=== PATIENT | female | born 1995 | race Asian ===

== ENCOUNTER → 2023-01-16 10:56 | Outpatient (BNVA) | payer BC, SELFPAY | PROVIDERS: PCP Internal Medicine; Visit Provider Physician Assistant Surgical ==

== ENCOUNTER → 2023-01-24 08:00 | Outpatient (BNVA) | payer BC, SELFPAY | PROVIDERS: PCP Internal Medicine; Visit Provider Surgery ==

== ENCOUNTER 2023-01-30 07:35 | Outpatient (REF) | payer BC, SELFPAY ==
--- NOTE | ~2023-01-30 | XR_ITS ---
EXAMINATION: XR CHEST CLINICAL INFORMATION: Morbid obesity due to access calories. COMPARISON: None available. TECHNIQUE: 2 views of the chest were obtained. FINDINGS: The mediastinal silhouette is normal. There is mild elevation of the right hemidiaphragm. Right lung is slightly hyperexpanded compared to left. No focal consolidation, changes of congestion or pleural effusions are seen. No pneumothorax. Regional skeleton is intact. Visualized upper abdomen is unremarkable. XR/XR chest 2V IMPRESSION: No acute pulmonary process.
--- NOTE | 2023-01-30 07:45 | ECG_ITS ---
Test Reason : obesity Blood Pressure : / mmHG Vent. Rate : 090 BPM Atrial Rate : 090 BPM P-R Int : 154 ms QRS Dur : 084 ms QT Int : 380 ms P-R-T Axes : 034 031 024 degrees QTc Int : 464 ms Normal sinus rhythm Normal ECG No previous ECGs available Referred By: Gonzales Leo Electronically Signed By:CORRIE CASILLAS MD
[2023-01-30 07:52] LABS: MANUAL DIFF FLAG NO
[2023-01-30 08:20] LABS: Basophils Percent Auto 0.2 % (0-2); Eosinophils Absolute Auto 0.2 X10*3/uL (0.0-0.4); Eosinophils Percent Auto 2.7 % (0-4); Hematocrit 44.2 % (37.0-47.0); Hemoglobin 13.9 g/dl (12.0-16.0); Imm Gran Abs Auto 0.02 X10*3/uL (0.00-0.03); Imm Gran Pct Auto 0.2 % (0.0-0.4); Lymphocytes Absolute Auto 2.6 X10*3/uL (1.2-4.9); Lymphocytes Percent Auto 31.7 % (20-40); Mean Corpuscular HGB Conc 31.4 g/dl (31.0-35.0); Mean Corpuscular Hemoglobin 25.9 pg (27.0-33.0); Mean Corpuscular Volume 82.3 fL (80.0-98.0); Monocytes Absolute Auto 0.5 X10*3/uL (0.1-1.2); Monocytes Percent Auto 6.1 % (2-11); Neutrophils Absolute Auto 4.9 x10*3/uL (2.0-8.3); Neutrophils Percent Auto 59.1 % (45-73); Platelet Count 300 X10*3/uL (160-400); Red Blood Count 5.37 X10*6/uL (4.20-5.50); Red Cell Distribution Width 13.7 % (11.0-16.0); White Blood Count 8.3 X10*3/uL (4.8-10.8)
[2023-01-30 08:28] LABS: Estimated Average Glucose 192 mg/dL; Hemoglobin A1c % 8.3 %
[2023-01-30 09:08] LABS: Alanine Aminotransferase 95 U/L (0-31); Albumin Level 4.3 g/dL (3.5-5.0); Alkaline Phosphatase 85 U/L (39-117); Anion Gap 15 (12-20); Aspartate Amino Transferase 83 U/L (5-31); Bilirubin Total 0.5 mg/dL (0.0-1.0); Blood Urea Nitrogen 11 mg/dL (9-16); C Reactive Protein 5.54 mg/dL (< or = 0.50); Calcium 9.5 mg/dL (8.4-10.2); Carbon Dioxide 23 mmol/L (22-29); Chloride 103 mmol/L (96-108); Cholesterol 198 mg/dL; Estimated Glomerular Filt Rate > 60; Glucose Random 133 mg/dL (60-115); HDL Cholesterol 42 mg/dL; Iron 48 mcg/dL (30-160); LDL Cholesterol Calculated 134 mg/dl; Percent Iron Saturation 17 % (15-50); Potassium 4.2 mmol/L (3.3-5.1); Sodium 137 mmol/L (135-145); Total Iron Binding Capacity 285 mcg/dL (228-428); Total Protein 8.2 g/dL (6.5-8.0); Triglycerides 112 mg/dL; Unsaturated Iron Binding 237 ug/dL
[2023-01-30 10:03] LABS: Ferritin 258 ng/mL (10-122); Folate 14.7 ng/mL (> or = 4.0); Insulin 36 uU/mL (2-29); TSH reflex Free T4 3.06 uIU/mL (0.32-4.0); Vitamin B12 586 pg/mL (200-900); Vitamin D 25-OH Total 26.7 ng/mL (>30)
[2023-02-03 14:18] LABS: Calcium (PTHI) 9.6 mg/dL (8.6-10.2); PTHI 48 pg/mL (16-77)
[2023-02-04 15:33] LABS: Zinc 68 mcg/dL (60-130)
[2023-02-05 16:39] LABS: Vitamin A 29 mcg/dL (38-98)
[2023-02-06 12:33] LABS: Vitamin B1 10 nmol/L (8-30)
== END 2023-01-30 07:36 | disposition home or self-care (01) ==
LOC: HO.LAB 07:35
PROVIDERS: Visit Provider Surgery
DX: E03.9 Hypothyroidism, unspecified (principal); E66.01 Morbid (severe) obesity due to excess calories; K21.9 Gastro-esophageal reflux disease without esophagitis; K76.0 Fatty (change of) liver, not elsewhere classified
CPT/HCPCS: 36415; 71046; 80053; 80061; 82306; 82607; 82728; 82746; 83036; 83525; 83540; 83970; 84425; 84443; 84590; 84630; 85025; 86140; 93005

== ENCOUNTER 2023-01-31 07:46 | Outpatient (REF) | payer BC, SELFPAY ==
[2023-02-01 14:19] LABS: H Pylori Breath Test Negative (Negative)
== END 2023-01-31 07:47 | disposition home or self-care (01) ==
LOC: HO.LNP 07:46
PROVIDERS: Surgery; Visit Provider Physician Assistant Surgical
DX: E66.01 Morbid (severe) obesity due to excess calories (principal); K21.9 Gastro-esophageal reflux disease without esophagitis; E03.9 Hypothyroidism, unspecified
CPT/HCPCS: 83013

== ENCOUNTER 2023-02-14 08:08 | Outpatient (REF) | payer BC, SELFPAY ==
--- NOTE | ~2023-02-14 | US_ITS ---
EXAMINATION: US COMPLETE ABDOMEN WITH LIVER ELASTOGRAPHY CLINICAL INFORMATION: Morbid obesity due to excess calories. COMPARISON: None available. TECHNIQUE: Real-time imaging of the abdominal viscera. Noninvasive ultrasound liver fibrosis assessment is performed using Rosalia ElastPQ point quantification shear wave elastography (2D-SWE) with a C5-2 MHz transducer. Multiple elastography samples are obtained. FINDINGS: PANCREAS: Largely obscured from visualization due to overlying bowel gas. ABDOMINAL AORTA: The proximal, middle, and distal aortic segments are normal in caliber. INFERIOR VENA CAVA: Visualized portions are normal. LIVER: The liver is in upper limits of normal for size. Liver contour is normal. There is increased liver parenchymal echogenicity consistent with steatosis. Evaluation for focal hepatic lesion in the setting of underlying steatosis is limited; however, no obvious focal lesion is seen. No intrahepatic biliary ductal dilatation. The right lobe measures 18.3 cm in length. The left lobe measures 12.9 cm in length. Portal flow is towards the liver (hepatopetal). Shear wave liver elastography median stiffness is 1.52 m/s (reference: normal median stiffness is 1.3 m/s or less). IQR/median stiffness to assess sampling precision is 0.14 (reference: good quality data set is IQR/median stiffness of 0.15 or less). GALLBLADDER: Normal. The gallbladder is physiologically distended without evidence of stones, sludge, polyps, wall thickening or pericholecystic fluid. COMMON BILE DUCT: Visualized common bile duct is normal in caliber measuring 0.4 cm in diameter. RIGHT KIDNEY: Normal. No hydronephrosis. No renal calculi or focal parenchymal lesions. The kidney measures 13.1 cm in maximum dimension. LEFT KIDNEY: Normal. No hydronephrosis. A 1.1 x 0.8 x 1.2 cm echogenic focus with reverberating echoes is noted in the lower pole. There appears to be small anechoic cystic portion anterior to this echogenic focus measuring 1.2 cm. I believe the finding represents milk of calcium in a renal cyst rather than nonobstructing calculus. The kidney measures 11.0 cm in maximum dimension. SPLEEN: Normal. The spleen measures 12.3 cm in maximum dimension. FREE FLUID: None. US/US abdomen comp w elastography IMPRESSION: 1. Hepatic steatosis. 2. Liver elastography: In the absence of other known clinical signs, measurements rule out compensated advanced chronic liver disease. If there are known clinical signs, further testing may be needed for confirmation. 3.A 1.2 cm echogenic nonshadowing focus in the lower pole of the left kidney is felt to represent milk of calcium in a cyst rather than nonobstructing calculus. No additional renal calculi. No hydronephrosis. REFERENCE: Society of Radiologists in Ultrasound Liver Stiffness Thresholds (2020): LIVER STIFFNESS THRESHOLDS: *Liver Stiffness equal or less than 1.3 m/s: High probability of being normal. *Liver Stiffness less than 1.7 m/s: In the absence of other known clinical signs, rules out compensated advanced chronic liver disease. *Liver Stiffness 1.7-2.1 m/s: Suggestive of compensated advanced chronic liver disease but need further test for confirmation. *Liver Stiffness over 2.1 m/s: Rules in compensated advanced chronic liver disease. *Liver Stiffness over 2.4 m/s: Suggestive of clinically significant portal hypertension. QUALITY OF DATA SET: *IQR/Median value equal or less than 0.15 implies a quality data set. *IQR/Median value over 0.15 implies a poor quality data set. SIGNIFICANT CHANGE FROM PRIOR EXAM: Significant change if liver stiffness measurement is 10% or greater from prior exam. OTHER CONSIDERATIONS: The stage of liver fibrosis may be overestimated in the setting of acute hepatitis, liver inflammation, elevated liver function tests, hepatic vascular congestion, obstructive cholestasis, non-fasting state, and infiltrative diseases such as amyloidosis and lymphoma. In some patients with NAFLD, the liver stiffness thresholds for compensated advanced chronic liver disease may be lower. In causes other than viral hepatitis and NAFLD, liver stiffness thresholds are not well established.
== END 2023-02-14 08:09 | disposition home or self-care (01) ==
LOC: HO.US 08:08
PROVIDERS: Visit Provider Surgery
DX: E66.01 Morbid (severe) obesity due to excess calories (principal); E03.9 Hypothyroidism, unspecified; K21.9 Gastro-esophageal reflux disease without esophagitis
CPT/HCPCS: 76705; 76981

== ENCOUNTER → 2023-02-17 14:06 | Outpatient (BNVA) | payer BC, SELFPAY | PROVIDERS: Visit Provider Counselor Mental Health ==

== ENCOUNTER → 2023-02-26 16:18 | Outpatient (BNVA) | payer BC, SELFPAY | PROVIDERS: Visit Provider Dietitian, Registered | DX: E66.01 Morbid (severe) obesity due to excess calories (principal); Z68.41 Body mass index [BMI] 40.0-44.9, adult; E11.9 Type 2 diabetes mellitus without complications; Z71.3 Dietary counseling and surveillance | CPT/HCPCS: 97802 ==

== ENCOUNTER → 2023-02-28 11:51 | Outpatient (BNVA) | payer BC, SELFPAY | PROVIDERS: Visit Provider Surgery ==

== ENCOUNTER 2023-03-17 11:00 | Outpatient (AMB) | payer BC, SELFPAY ==
--- NOTE | 2023-03-17 13:27 | A.OFFWM_ITS ---
Intake Intake Visit Reasons: VIDEO f/u Allergies shellfish Allergy (Intermediate, Uncoded 02/26/23 15:39) Itching PFSH Medical History (Updated 02/17/23 @ 14:46 by Lydia Manjarrez) GERD (gastroesophageal reflux disease) Hypothyroidism Knee pain Morbid obesity Sleep apnea Steatosis, liver Surgical History (Updated 01/16/23 @ 11:21 by Bernadine Santos CMA) Hx of wisdom tooth extraction Family History (Updated 01/16/23 @ 11:21 by Bernadine Santos CMA) Mother Hypertension Father Hypertension Diabetes Brother Asthma Brother No problems noted. Social History (Updated 01/16/23 @ 11:20 by Bernadine Santos CMA) Alcohol intake: current Alcohol intake frequency: holidays/special occasions only Patient Tobacco Use Status: Never used Tobacco Behavioral Health Assessment Weight Management Therapy Therapy Notes Details Today she reports falling off her routine due to vacation and also increased stress while in the process of buying a home. Pt is looking to have weight loss surgery to help improve her health and quality of life. She reported seeing a therapist for two years and just closed her practice two months ago however did work and process with her the topic of weight loss surgery. Pt reported high stress, some depression, and binge eating symptoms in the past. She reported that she was referred to [facility] intensive outpatient program two years ago after going to [facility] weight management program seeking weight loss surgery. She spent 2-3months at the program online daily and then found a therapist who specialized in BED. Pt stated that she had binge eating symptoms due to stress in her life at that time but also had become a habit since childhood. She started noticing in college when she saw how others were eating. Pt stated that her parents worked all the time as a child and had to fend for herself. Pt has no history of inpatient psychiatric admissions, legal problems, addiction to drugs or alcohol, and no history of self harming behaviors or suicide atte mpts. Presenting Concerns Referral Source provider Reason for referral weight loss surgery evaluation Precipitating Event obesity Living Situation Current Living Situation Own At risk of losing current housing? No Satisfied with current living situation? Yes Comments Pt lives with her fiance. Offer accepted today on a new home. Food/Weight/Diet Expectations of change weight loss and maintenance History/Relationship with food Pt reported her rel. has improved over the past couple of years. She has sought after treatment for binge eating, she will still over eat but not as intense as it was prior to, she has more awareness. Pt stated that she is more likely to over eat or binge when she is at a constitution party or gathering and there is a variety of different foods and wants to try them all. She reported that she would eat more carb heavy, lots of rice, meat, sweets/desserts. History/Relationship with weight She is currently at her heaviest weight. History/Relationship with dieting WMP at [facility] (260lbs) 2 years ago however did not qualify due to binge eating and also high stress in her life at that time. Binge Eating Do you frequently eat large amounts of food in short periods of time, not feeling physically hungry? Yes Do you feel out of control when you eat a large amount of food in a short period of time? No Do you eat large amounts of food rapidly and typically alone? Yes Night Eating Do you wake up at least once during the night to eat? No If you wake up in the night, do you find that it is necessary to eat something in order to fall back asleep? No Do you have little or no appetite in the morning and feel very hungry in the evening, often overeating between dinner and when you go to bed? No Social History Family history and relationship Pt is first generation here, her family is from [place]. She is engaged to be and has no children. She was raised by her parents and two older brothers. Her family lives in [place]. Parental/Familial environmental planner obligations none Developmental history and status no issues known Social support fianc?, mom Faith/Spirituality Judaism Cultural/Ethnic information [place] Turk[place] Legal Involvement and History Current or historical involvement with the legal system? none Education Highest grade completed bachelors in psychology and masters in communication Preferred learning style Auditory, Verbal, Written, Learn by doing and Visual Currently enrolled in educational program? No Interested in further educational program? No Educational Interests/Skills Pt works for [employer] agency in [employer] Employment Employment Status [employer] Wants help to find employment? No Meaningful activities reading, going to the park Financial Situation Describe current financial situation Comfortable Financial assistance? None Service Service? No Mental Health and Addiction Treatment Current/Past substance abuse? No Current/Past addictive behavior concerns? No Medical and Physical Health Summary Physical exam in the last year? No Pain Screening Current pain? No Pain in the last few months? Yes Medications Is the patient compliant with medications? Yes Does the patient have Denise Guardian in place? Not applicable Does the patient use complimentary health approaches? No Trauma/Abuse History History of trauma? No Assessment & Plan Assessment & Plan (1) Mild binge-eating disorder, in full remission: Code(s): F50.81 - Binge eating disorder (2) Morbid obesity: Code(s): E66.01 - Morbid (severe) obesity due to excess calories Plan Pt is looking to have weight loss surgery. She discussed her past eating disorder and her work towards recovery from that. Patient is stable compared to when she has tried weight management program in the past. She has no serious mental health symptoms at this time. Pt is cleared for surgery when ready and communication throughout was strongly encouraged. Pt should be considered for food based plan if she wishes due to history. Telehealth Telehealth Location of provider rendering services: practice address Location of patient: address on file Patient Identification confirmed using: Name, : Yes Telehealth method: video Patient verbally consented to treatment: Yes Patient verbally consented to billing insurance company: Yes Patient informed of any privacy concerns related to visit: Yes Minutes spent on Phone/Video with Pt.: 30 Coding Level of Care Code Tele Psytx 30 mins (96001) Diagnoses Mild binge-eating disorder, in full remission F50.81 Morbid obesity E66.01 Time Spent (min) 30
== END 2023-03-17 13:27 | disposition home or self-care (01) ==
LOC: HO.HBST 11:30
PROVIDERS: Visit Provider Counselor Mental Health
DX: F50.81 Binge eating disorder (principal); E66.01 Morbid (severe) obesity due to excess calories
CPT/HCPCS: 90832

== ENCOUNTER → 2023-03-17 11:00 | Outpatient (BNVA) | payer BC, SELFPAY | PROVIDERS: Visit Provider Counselor Mental Health ==

== ENCOUNTER 2023-03-27 08:30 | Outpatient (AMB) | payer BC, SELFPAY ==
--- NOTE | 2023-03-27 08:31 | MHC.OFFVISWM ---
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 Weight today is:259 pounds with a BMI 41.8 weight loss to date:13 pounds or 4.7 % TBWL She states she is very happy to be below 260 pounds and has not been at that weight in years. She has been more motivated since her last appointment and has noticed results. She states she is having some pain in the inside of her right>left ankle with extended walking. She was encouraged to get an ankle sleeve and also to try different exercises such as recumbent bike, elliptical to see if that does not cause pain. Her bike at home is upright. Meal plan: one ORGAIN protein shake (ONE scoop in 8oz low fat unsweetened almond milk) at 8am-10am and another Orgain shake (TWO scoops in 8oz almond milk) at 11am-1pm, 1 Zone Perfect protein bar at 2pm-4pm, dinner at 5pm (10 forks of protein and 10 forks of salad/vegetables) , one more protein bar after dinner at 7pm-9pm. exercise plan: stationary bike at home, 2-3 x per week, 250 calories and gym membership. walking 1-2 miles, daily, 300-400 calories. [facility] Medical History GERD (gastroesophageal reflux disease) Hypothyroidism Knee pain Morbid obesity Sleep apnea Steatosis, liver Surgical History Hx of wisdom tooth extraction Family History Mother Hypertension Father Hypertension Diabetes Brother Asthma Brother No problems noted. Social History Alcohol intake: current Alcohol intake frequency: holidays/special occasions only Patient Tobacco Use Status: Never used Tobacco Review of Systems Const All systems reviewed & are unremarkable except as noted in HPI and below Assessment & Plan Assessment & Plan (1) Morbid obesity: Code(s): E66.01 - Morbid (severe) obesity due to excess calories Plan: making progress continue to text weekly change meal plan to : one ORGAIN protein shake (ONE scoop in 8oz low fat unsweetened almond milk) at 8am-10am and another Orgain shake (ONE scoop in 8oz almond milk) at 11am-1pm, 1 Zone Perfect protein bar at 2pm-4pm, dinner at 5pm (10 forks of protein and 10 forks of salad/vegetables) , one more protein bar after dinner at 7pm-9pm. Increase exercise on bike to 4-5 x per week and increase calories burned to 300+. Try to walk daily as she is doing but add an ankle support sock. May need referral to facility worker for inserts. Telehealth Telehealth Location of provider rendering services: practice address Location of patient: address on file Patient Identification confirmed using: Name, : Yes Telehealth method: video Patient verbally consented to treatment: Yes Patient verbally consented to billing insurance company: Yes Patient informed of any privacy concerns related to visit: Yes Minutes spent on Phone/Video with Pt.: 20 Coding Level of Care Code Tele Est Pt Level 3 (86588) Diagnoses Morbid obesity E66.01 Time Spent (min) 30
[2023-03-27 08:34] VITALS: BMI 41.8
== END 2023-03-27 09:15 | disposition home or self-care (01) ==
LOC: HO.HBS 09:09
PROVIDERS: Visit Provider Physician Assistant Surgical
DX: E66.01 Morbid (severe) obesity due to excess calories (principal); Z68.41 Body mass index [BMI] 40.0-44.9, adult
CPT/HCPCS: 99213

== ENCOUNTER → 2023-03-27 08:30 | Outpatient (BNVA) | payer SELFPAY | PROVIDERS: Visit Provider Physician Assistant Surgical ==

== ENCOUNTER 2023-04-02 13:30 | Outpatient (AMB) | payer BC, SELFPAY ==
--- NOTE | 2023-04-02 14:51 | A.OFFWM_ITS ---
Intake Intake Visit Reasons: VIDEO f/u Allergies shellfish Allergy (Intermediate, Uncoded 02/26/23 15:39) Itching PFSH Medical History GERD (gastroesophageal reflux disease) Hypothyroidism Knee pain Morbid obesity Sleep apnea Steatosis, liver Surgical History Hx of wisdom tooth extraction Family History Mother Hypertension Father Hypertension Diabetes Brother Asthma Brother No problems noted. Social History Alcohol intake: current Alcohol intake frequency: holidays/special occasions only Patient Tobacco Use Status: Never used Tobacco Behavioral Health Assessment Weight Management Therapy Therapy Notes Details Today she reports falling off her routine due to vacation and also increased stress while in the process of buying a home. Pt is looking to have weight loss surgery to help improve her health and quality of life. She reported seeing a therapist for two years and just closed her practice two months ago however did work and process with her the topic of weight loss surgery. Pt reported high stress, some depression, and binge eating symptoms in the past. She reported that she was referred to [facility] intensive outpatient program two years ago after going to [facility] weight management program seeking weight loss surgery. She spent 2-3months at the program online daily and then found a therapist who specialized in BED. Pt stated that she had binge eating symptoms due to stress in her life at that time but also had become a habit since childhood. She started noticing in college when she saw how others were eating. Pt stated that her parents worked all the time as a child and had to fend for herself. Pt has no history of inpatient psychiatric admissions, legal problems, addiction to drugs or alcohol, and no history of self harming behaviors or suicide attemp ts. Presenting Concerns Referral Source provider Reason for referral weight loss surgery evaluation Precipitating Event obesity Living Situation Current Living Situation Own At risk of losing current housing? No Satisfied with current living situation? Yes Comments Pt lives with her fiance. Offer accepted today on a new home. Food/Weight/Diet Expectations of change weight loss and maintenance History/Relationship with food Pt reported her rel. has improved over the past couple of years. She has sought after treatment for binge eating, she will still over eat but not as intense as it was prior to, she has more awareness. Pt stated that she is more likely to over eat or binge when she is at a constitution party or gathering and there is a variety of different foods and wants to try them all. She reported that she would eat more carb heavy, lots of rice, meat, sweets/desserts. History/Relationship with weight She is currently at her heaviest weight. History/Relationship with dieting WMP at [facility] (260lbs) 2 years ago however did not qualify due to binge eating and also high stress in her life at that time. Binge Eating0 Do you frequently eat large amounts of food in short periods of time, not feeling physically hungry? Yes Do you feel out of control when you eat a large amount of food in a short period of time? No Do you eat large amounts of food rapidly and typically alone? Yes Night Eating Do you wake up at least once during the night to eat? No If you wake up in the night, do you find that it is necessary to eat something in order to fall back asleep? No Do you have little or no appetite in the morning and feel very hungry in the evening, often overeating between dinner and when you go to bed? No Social History Family history and relationship Pt is first generation here, her family is from [place]. She is engaged to be and has no children. She was raised by her parents and two older brothers. Her family lives in [place]. Parental/Familial cow washer obligations none Developmental history and status no issues known Social support fianc?, mom Hinduism/Spirituality Mormon Cultural/Ethnic information [place]arag[place] Legal Involvement and History Current or historical involvement with the legal system? none Education Highest grade completed bachelors in psychology and masters in communication Preferred learning style Auditory, Verbal, Written, Learn by doing and Visual Currently enrolled in educational program? No Interested in further educational program? No Educational Interests/Skills Pt works for [employer] agency in [employer] Employment Employment Status [employer] Wants help to find employment? No Meaningful activities reading, going to the park Financial Situation Describe current financial situation Comfortable Financial assistance? None Service Service? No Mental Health and Addiction Treatment Current/Past substance abuse? No Current/Past addictive behavior concerns? No Medical and Physical Health Summary Physical exam in the last year? No Pain Screening Current pain? No Pain in the last few months? Yes Medications Is the patient compliant with medications? Yes Does the patient have Denise Guardian in place? Not applicable Does the patient use complimentary health approaches? No Trauma/Abuse History History of trauma? No Assessment & Plan Assessment & Plan (1) Mild binge-eating disorder, in full remission: Code(s): F50.81 - Binge eating disorder (2) Morbid obesity: Code(s): E66.01 - Morbid (severe) obesity due to excess calories Plan Pt is looking to have weight loss surgery. She discussed her past eating disorder and her work towards recovery from that. Patient is stable compared to when she has tried weight management program in the past. She has no serious mental health symptoms at this time. Pt is cleared for surgery when ready and communication throughout was strongly encouraged. Pt should be considered for food based plan if she wishes due to history. Telehealth Telehealth Location of provider rendering services: practice address Location of patient: address on file Patient Identification confirmed using: Name, : Yes Telehealth method: video Patient verbally consented to treatment: Yes Patient verbally consented to billing insurance company: Yes Patient informed of any privacy concerns related to visit: Yes Minutes spent on Phone/Video with Pt.: 20 Coding Level of Care Code Tele Psytx 30 mins (74010) Diagnoses Mild binge-eating disorder, in full remission F50.81 Morbid obesity E66.01 Time Spent (min) 20
== END 2023-04-02 14:51 | disposition home or self-care (01) ==
LOC: HO.HBST 14:04
PROVIDERS: Visit Provider Counselor Mental Health
DX: F50.81 Binge eating disorder (principal); E66.01 Morbid (severe) obesity due to excess calories; Z68.41 Body mass index [BMI] 40.0-44.9, adult
CPT/HCPCS: 90832

== ENCOUNTER → 2023-04-02 13:30 | Outpatient (BNVA) | payer BC, SELFPAY | PROVIDERS: Visit Provider Counselor Mental Health ==

== ENCOUNTER 2023-04-04 08:11 | Outpatient (REF) | payer BC, SELFPAY ==
--- NOTE | ~2023-04-04 | FL_ITS ---
PROCEDURE: XR FLUOROSCOPY UPPER GI WITH AIR CLINICAL INFORMATION: Morbid/severe obesity due to excess calories. Preop. COMPARISON: None available. TECHNIQUE: Routine upper GI air-contrast study was performed in upright and lying position. FINDINGS: Following oral administration of thick barium and effervescent granules there is normal propagation of bolus from the oral cavity through the pharynx, esophagus into stomach without any evidence of obstruction, narrowing or stricture. The course, caliber and peristalsis of the stomach, duodenal bulb and sweep is normal. The mucosal pattern of the stomach and the duodenum is normal. FLUOROSCOPY TIME: 1.1 minute DOSE AREA PRODUCT: 49.343 uGy-m2 (microgray-meter squared) FL/FL upper GI w air IMPRESSION: Unremarkable upper GI air-contrast examination.
== END 2023-04-04 08:12 | disposition home or self-care (01) ==
LOC: HO.XRAY 08:11
PROVIDERS: Visit Provider Surgery
DX: E66.01 Morbid (severe) obesity due to excess calories (principal); K21.9 Gastro-esophageal reflux disease without esophagitis; E03.9 Hypothyroidism, unspecified; K76.0 Fatty (change of) liver, not elsewhere classified
CPT/HCPCS: 74246

== ENCOUNTER → 2023-04-04 08:14 | Outpatient (BNV) | payer BC, SELFPAY | PROVIDERS: Visit Provider Radiology Diagnostic Radiology | DX: Z01.818 Encounter for other preprocedural examination (principal) | CPT/HCPCS: 74246 ==

== ENCOUNTER 2023-04-18 08:18 | Outpatient (AMB) | payer BC, SELFPAY ==
--- NOTE | 2023-04-18 12:03 | A.OFFVIS_ITS ---
Intake VS Expanded 04/18/23 12:17 Height 5 ft 6 in Weight 256 lb 1 oz BMI 41.3 Body Fat 115.2 Body Fat Percentage 45 Free Fat Mass 140.8 Visceral Mass 18 Water Mass 103.9 BMR 1,891 Intake Visit Reasons: TV Follow Up SWL Allergies shellfish Allergy (Intermediate, Uncoded 02/26/23 15:39) Itching HPI TV Follow Up SWL HPI Details Start time: 12pm, End time: 12.20pm ?I spent 15 minutes speaking with the patient on the phone plus an additional 5 minutes reviewing and updating records for a total of 20 minutes HPI Comments History of Present Illness0 Details Overall weight loss: 15.9lbs, or 5.85% TBWL Is doing 2 Orgain protein shakes (1 scoop each in 8oz almond milk), 2.5 Zone Perfect protein bars and one meal (10 forks of protein and 10 forks of salad or vegetables) Exercise: walking outside x5/week for 350-400 calories, or stationary bike for 300 calories PFSH Medical History GERD (gastroesophageal reflux disease) Hypothyroidism Knee pain Morbid obesity Sleep apnea Steatosis, liver Surgical History Hx of wisdom tooth extraction Family History Mother Hypertension Father Hypertension Diabetes Brother Asthma Brother No problems noted. Social History Alcohol intake: current Alcohol intake frequency: holidays/special occasions only Patient Tobacco Use Status: Never used Tobacco Assessment & Plan Assessment & Plan (1) Morbid obesity: Code(s): E66.01 - Morbid (severe) obesity due to excess calories Plan: 1. Continue same nutritional plan of 2 Orgain protein shakes (1 scoop each in 8oz almond milk), 2.5 Zone Perfect protein bars and one meal (10 forks of protein and 10 forks of salad or vegetables) 2. Exercise: continue walking outside x5/week for 350-400 calories, or stationary bike for 300 calories 3. Alternatively purchase a stationary bike, elliptical or treadmill at home that can track calories. Let me know if you do so I can give you an exercise plan. 4. Continue to send me weight measurements weekly on Tuesdays Telehealth Telehealth Location of provider rendering services: practice address Location of patient: address on file Patient Identification confirmed using: Name, : Yes Telehealth method: voice only Patient verbally consented to treatment: Yes Patient verbally consented to billing insurance company: Yes Patient informed of any privacy concerns related to visit: Yes Minutes spent on Phone/Video with Pt.: 20 Coding Level of Care Code Tele Est Pt Level 3 (65912) Diagnoses Morbid obesity E66.01 Time Spent (min) 20
[2023-04-18 12:17] VITALS: BMI 41.3
== END 2023-04-18 12:21 | disposition home or self-care (01) ==
LOC: HO.HBS 08:18
PROVIDERS: Visit Provider Surgery
DX: E66.01 Morbid (severe) obesity due to excess calories (principal); Z68.41 Body mass index [BMI] 40.0-44.9, adult
CPT/HCPCS: 99442

== ENCOUNTER → 2023-04-18 08:18 | Outpatient (BNVA) | payer BC, SELFPAY | PROVIDERS: Visit Provider Surgery ==

== ENCOUNTER 2023-05-07 07:57 | Outpatient (AMB) | payer BC, SELFPAY ==
--- NOTE | 2023-05-07 08:17 | A.OFFVIS_ITS ---
Intake VS Expanded 05/07/23 08:29 Height 5 ft 6 in Weight 252 lb 4 oz BMI 40.7 Body Fat 113.5 Body Fat Percentage 45 Free Fat Mass 138.8 Visceral Mass 18 Water Mass 102.9 BMR 1,878 Intake Visit Reasons: TV Pre Op LSG 05/20/23 Allergies shellfish Allergy (Intermediate, Uncoded 05/07/23 08:18) Itching Medication List - Last Reconciled 05/07/23 by Gonzales Leo MD cholecalciferol (vitamin D3) 125 mcg PO DAILY metformin 1,000 mg PO BID ondansetron 4 mg PO Q12H pantoprazole 40 mg PO DAILY polyethylene glycol 3350 (Miralax) 17 grams PO DAILY sucralfate 10 mL PO BID vitamin A palmitate 10,000 units orally one per day; HPI TV Pre Op LSG 05/20/23 HPI Details Start time: 8.11am, End time: 8.31am ?I spent 15 minutes speaking with the patient on the phone plus an additional 5 minutes reviewing and updating records for a total of 20 minutes HPI Comments History of Present Illness Details Overall weight loss: 19.6lbs, or 7.21% TBWL Is doing 2 Orgain (1 scoop in almond milk) protein shakes, 2.5 Zone Perfect protein bars and one meal (10 forks of protein and 10 forks of salad or veg etables) Exercise: is doing the stationary bike or the elliptical for 400 calories x 5/week PFSH Medical History GERD (gastroesophageal reflux disease) Hypothyroidism Knee pain Morbid obesity Sleep apnea Steatosis, liver Surgical History Hx of wisdom tooth extraction Family History Mother Hypertension Father Hypertension Diabetes Brother Asthma Brother No problems noted. Social History Alcohol intake: current Alcohol intake frequency: holidays/special occasions on ly Patient Tobacco Use Status: Never used Tobacco Assessment & Plan Assessment & Plan (1) Morbid obesity: Code(s): E66.01 - Morbid (severe) obesity due to excess calories Plan: 1. Plan for lap sleeve gastrectomy including upper GI endoscopy. All tests has been completed and reviewed and the patient is cleared for the surgery. ?If diaphragmatic or ventral hernias are present at time of surgery, these will be r epaired laparoscopically as well. Risks and complications were discussed in detail including possible conversion to an open procedure, anastomotic leak, bleeding requiring transfusion, small bowel obstruction, , DVT and pulmonary embolism, cardiac, or pulmonary complications, as oil heaterman complications such as anastomotic ulcer, insufficient weight loss and vitamin deficiencies. I emphasized the importance of close follow-up, adherence to instructions and good communication. So far she has proven to be an excellent communicator and very compliant with all our directions accomplishing a great weight loss. I believe that she is an excellent candidate and she is ready. 2. Preop prescriptions were provided and explained the purpose of each one. Need to be purchased preop. Start Pantoprazole now as you get it from the pharmacy, 1 pill per day. Sucralfate and Zofran are for after surgery as needed. 3. Bowel prep: please do 7 packets ?of Miralax mixing each one with a an 8oz glass of water, crystal light, gatorade zero, or propel ?on 05/18/23 and the same amount on 05/19/23. Continue the protein shakes during? the bowel prep. 4. Needs to purchase 1oz medicine cups . 5. Needs to purchase Children's liquid Tylenol for postop pain control. 6. Avoid aspirin, motrin, Advil, Aleve, Ibuprofen, Naproxyn. Tylenol is OK. 7. She needs to purchase the Celebrate 4:1 protein shakes from the hospital's gift [facility]. 8. Will do basic preop blood work-up any day between Friday05/12/23 and Friday05/16/23 fasting for 12 hours and is scheduled to see the Anesthesiologist prior to the day of surgery. 9. Importance of adherence to postop folllow-up and recommendations was underscored and she understands that. 10. Stop food and bars as of tomorrow 05/08/23 and continue with 3 Orgain protein shakes (ONE scoop EACH in 8oz almond milk) at 8am-10am, 11am-1pm and 2pm-4pm and TWO more Orgain protein shakes with TWO scoops EACH in 8oz of almond milk at 5pm-7pm and 8pm-10pm 11. No soups, broths or V8 12. The patient's?medical?history has been reviewed and they are considered low risk for post op DVT and therefore DVT prophylaxis is not considered necessary. Travel after surgery was reviewed. The patient has not disclosed any travel plans during the first 30 days after surgery and they have been advised that within the first 30 days after surgery any bus, plane, train or car travel over 2 hours in duration is contraindicated due to the possibility of developing blood clots from immobility. Any travel, needs to include periods of ambulation of 10 minutes in duration every 2 hours.? Patient was instructed to discuss any plans for travel during this period with their bariatric surgeon.? 13. Please take at the day of surgery the following medications: 14. Stop any control pills and don't use them for one month after surgery 15. Absolutely no smoking or vaping, or marijuana until the surgery and for at least the first 4 weeks. Only nicotine patches are allowed. 16. Send me weight measurements on and then on the day of surgery before you go to the hospital. 17. Avoid any steroids by mouth for any reason. Let me know if someone prescribes them to you Orders: Orders Type and Screen Today E03.9 - Hypothyroidism, unspecified, E66.01 - Morbid (severe) obesity due to excess calories, G47.30 - Sleep apnea, unspecified, K21.9 - Gastro-esophageal reflux disease without esophagitis, K76.0 - Fatty (change of) liver, not elsewhere classified Comprehensive Met. Panel Today E03.9 - Hypothyroidism, unspecified, E66.01 - Morbid (severe) obesity due to excess calories, G47.30 - Sleep apnea, unspecified, K21.9 - Gastro-esophageal reflux disease without esophagitis, K76.0 - Fatty (change of) liver, not elsewhere classified C Reactive Protein Today E03.9 - Hypothyroidism, unspecified, E66.01 - Morbid (severe) obesity due to excess calories, G47.30 - Sleep apnea, unspecified, K21.9 - Gastro-esophageal reflux disease without esophagitis, K76.0 - Fatty (change of) liver, not elsewhere classified Hemoglobin A1c Today E03.9 - Hypothyroidism, unspecified, E66.01 - Morbid (severe) obesity due to excess calories, G47.30 - Sleep apnea, unspecified, K21.9 - Gastro-esophageal reflux disease without esophagitis, K76.0 - Fatty (change of) liver, not elsewhere classified Insulin Today E03.9 - Hypothyroidism, unspecified, E66.01 - Morbid (severe) obesity due to excess calories, G47.30 - Sleep apnea, unspecified, K21.9 - Gastro-esophageal reflux disease without esophagitis, K76.0 - Fatty (change of) liver, not elsewhere classified Lipid Panel Today E03.9 - Hypothyroidism, unspecified, E66.01 - Morbid (severe) obesity due to excess calories, G47.30 - Sleep apnea, unspecified, K21.9 - Gastro-esophageal reflux disease without esophagitis, K76.0 - Fatty (change of) liver, not elsewhere classified TSH reflex Free T4 Today E03.9 - Hypothyroidism, unspecified, E66.01 - Morbid (severe) obesity due to excess calories, G47.30 - Sleep apnea, unspecified, K21.9 - Gastro-esophageal reflux disease without esophagitis, K76.0 - Fatty (change of) liver, not elsewhere classified Prothrombin Time INR Today E03.9 - Hypothyroidism, unspecified, E66.01 - Morbid (severe) obesity due to excess calories, G47.30 - Sleep apnea, unspecified, K21.9 - Gastro-esophageal reflux disease without esophagitis, K76.0 - Fatty (change of) liver, not elsewhere classified Partial Thromboplastin Time Today E03.9 - Hypothyroidism, unspecified, E66.01 - Morbid (severe) obesity due to excess calories, G47.30 - Sleep apnea, unspecified, K21.9 - Gastro-esophageal reflux disease without esophagitis, K76.0 - Fatty (change of) liver, not elsewhere classified Complete Blood Count Auto Diff Today E03.9 - Hypothyroidism, unspecified, E66.01 - Morbid (severe) obesity due to excess calories, G47.30 - Sleep apnea, unspecified, K21.9 - Gastro-esophageal reflux disease without esophagitis, K76.0 - Fatty (change of) liver, not elsewhere classified Medications: New pantoprazole 40 mg PO DAILY 30 tabs 2RF K21.9 - Gastro-esophageal reflux disease without esophagitis sucralfate 10 mL PO BID 400 mL 2RF K21.9 - Gastro-esophageal reflux disease without esophagitis ondansetron Only take one every 12 hours as needed if you have nausea 4 mg PO Q12H 20 tabs 0RF nausea and vomiting R11.0 - Nausea polyethylene glycol 3350 (Miralax) Mix each packet with 8oz of water, Crystal light, or Gatorade zero, or Propel and do 7 packets on 05/18/23 and another 7 packets on 05/19/23 17 grams PO DAILY 14 ea 0RF Z01.818 - Encounter for other preprocedural examination Telehealth Telehealth Location of provider rendering services: practice address Location of patient: address on file Patient Identification confirmed using: Name, : Yes Telehealth method: voice only Patient verbally consented to treatment: Yes Patient verbally consented to billing insurance company: Yes Patient informed of any privacy concerns related to visit: Yes Minutes spent on Phone/Video with Pt.: 20 Coding Level of Care Code Tele Est Pt Level 3 (95080) Diagnoses Morbid obesity E66.01 Time Spent (min) 20
[2023-05-07 08:29] VITALS: BMI 40.7
== END 2023-05-07 08:32 | disposition home or self-care (01) ==
LOC: HO.HBS 07:57
PROVIDERS: Visit Provider Surgery
DX: E66.01 Morbid (severe) obesity due to excess calories (principal); Z68.41 Body mass index [BMI] 40.0-44.9, adult
CPT/HCPCS: 99499

== ENCOUNTER → 2023-05-07 07:57 | Outpatient (BNVA) | payer BC, SELFPAY | PROVIDERS: Visit Provider Surgery ==

== ENCOUNTER 2023-05-07 14:12 | Outpatient (AMB) | payer BC, SELFPAY ==
--- NOTE | 2023-05-07 14:46 | A.OFFWM_ITS ---
Intake Intake Visit Reasons: VIDEO f/u Allergies shellfish Allergy (Intermediate, Uncoded 05/07/23 08:18) Itching PFSH Medical History GERD (gastroesophageal reflux disease) Hypothyroidism Knee pain Morbid obesity Sleep apnea Steatosis, liver Surgical History Hx of wisdom tooth extraction Family History Mother Hypertension Father Hypertension Diabetes Brother Asthma Brother No problems noted. Social History Alcohol intake: current Alcohol intake frequency: holidays/special occasions only Patient Tobacco Use Status: Never used Tobacco Behavioral Health Assessment Weight Management Therapy Therapy Notes Details Patient is scheduled for surgery, she is excited to have that per her report although nervous. She is now moved into her new home and also has a dog she adopted. She reflected that she has everything she once wanted in her life. Positive reinforcement was used, motivational and supportive listening. Pt is looking to have weight loss surgery to help improve her health and quality of life. She reported seeing a therapist for two years and just closed her practice two months ago however did work and process with her the topic of weight loss surgery. Pt reported high stress, some depression, and binge eating symptoms in the past. She reported that she was referred to [facility] intensive outpatient program two years ago after going to [facility] weight management program seeking weight loss surgery. She spent 2-3months at the program online daily and then found a therapist who specialized in BED. Pt stated that she had binge eating symptoms due to stress in her life at that time but also had become a habit since childhood. She started noticing in college when she saw how others were eating. Pt stated that her parents worked all the time as a child and had to fend for herself. Pt has no history of inpatient psychiatric admissions, legal problems, addiction to drugs or alcohol, and no history of self harming behaviors or suicide attempts. Presenting Concerns Referral Source provider Reason for referral weight loss surgery evaluation Precipitating Event obesity Living Situation Current Living Situation Own At risk of losing current housing? No Satisfied with current living situation? Yes Comments Pt lives with her fiance. Offer accepted today on a new home. Food/Weight/Diet Expectations of change weight loss and maintenance History/Relationship with food Pt reported her rel. has improved over the past couple of years. She has sought after treatment for binge eating, she will still over eat but not as intense as it was prior to, she has more awareness. Pt stated that she is more likely to over eat or binge when she is at a republican or gathering and there is a variety of different foods and wants to try them all. She reported that she would eat more carb heavy, lots of rice, meat, sweets/desserts. History/Relationship with weight She is currently at her heaviest weight. History/Relationship with dieting WMP at [facility] (260lbs) 2 years ago however did not qualify due to binge eating and also high stress in her life at that time. Binge Eating Do you frequently eat large amounts of food in short periods of time, not feeling physically hungry? Yes Do you feel out of control when you eat a large amount of food in a short period of time? No Do you eat large amounts of food rapidly and typically alone? Yes Night Eating Do you wake up at least once during the night to eat? No If you wake up in the night, do you find that it is necessary to eat something in order to fall back asleep? No Do you have little or no appetite in the morning and feel very hungry in the evening, often overeating between dinner and when you go to bed? No Social History Family history and relationship Pt is first generation here, her family is from [place]. She is engaged to be and has no children. She was raised by her parents and two older brothers. Her family lives in [place]. 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 none Education Highest grade completed bachelors in psychology and masters in communication Preferred learning style Auditory, Verbal, Written, Learn by doing and Visual Currently enrolled in educational program? No Interested in further educational program? 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 No Meaningful activities reading, going to the park Financial Situation Describe current financial situation Comfortable Financial assistance? None Service Service? No Mental Health and Addiction Treatment Current/Past substance abuse? No Current/Past addictive behavior concerns? No Medical and Physical Health Summary Physical exam in the last year? No Pain Screening Current pain? No Pain in the last few months? Yes Medications Is the patient compliant with medications? Yes Does the patient have Denise Guardian in place? Not applicable Does the patient use complimentary health approaches? No Trauma/Abuse History History of trauma? No Assessment & Plan Assessment & Plan (1) Mild binge-eating disorder, in full remission: Code(s): F50.81 - Binge eating disorder (2) Morbid obesity: Code(s): E66.01 - Morbid (severe) obesity due to excess calories Plan Pt is looking to have weight loss surgery. She discussed her past eating disorder and her work towards recovery from that. Patient is stable compared to when she has tried weight management program in the past. She has no serious mental health symptoms at this time. Pt is cleared for surgery when ready and communication throughout was strongly encouraged. . Telehealth Telehealth Location of provider rendering services: practice address Location of patient: address on file Patient Identification confirmed using: Name, : Yes Telehealth method: voice only Patient verbally consented to treatment: Yes Patient verbally consented to billing insurance company: Yes Patient informed of any privacy concerns related to visit: Yes Minutes spent on Phone/Video with Pt.: 30 Coding Level of Care Code Tele Psytx 30 mins (40703) Diagnoses Mild binge-eating disorder, in full remission F50.81 Morbid obesity E66.01 Time Spent (min) 30
== END 2023-05-07 14:46 | disposition home or self-care (01) ==
LOC: HO.HBST 14:12
PROVIDERS: Visit Provider Counselor Mental Health
DX: F50.81 Binge eating disorder (principal); E66.01 Morbid (severe) obesity due to excess calories; Z68.41 Body mass index [BMI] 40.0-44.9, adult
CPT/HCPCS: 90832

== ENCOUNTER 2023-05-14 11:52 | Outpatient (REF) | payer BC, SELFPAY ==
[2023-05-14 12:13] LABS: MANUAL DIFF FLAG NO
[2023-05-14 13:17] LABS: Basophils Percent Auto 0.5 % (0-2); Eosinophils Absolute Auto 0.2 X10*3/uL (0.0-0.4); Eosinophils Percent Auto 2.2 % (0-4); Hematocrit 43.1 % (37.0-47.0); Hemoglobin 13.9 g/dl (12.0-16.0); Imm Gran Abs Auto 0.02 X10*3/uL (0.00-0.03); Imm Gran Pct Auto 0.3 % (0.0-0.4); Lymphocytes Absolute Auto 2.2 X10*3/uL (1.2-4.9); Lymphocytes Percent Auto 29.2 % (20-40); Mean Corpuscular HGB Conc 32.3 g/dl (31.0-35.0); Mean Corpuscular Hemoglobin 26.5 pg (27.0-33.0); Mean Corpuscular Volume 82.1 fL (80.0-98.0); Monocytes Absolute Auto 0.4 X10*3/uL (0.1-1.2); Monocytes Percent Auto 5.7 % (2-11); Neutrophils Absolute Auto 4.6 x10*3/uL (2.0-8.3); Neutrophils Percent Auto 62.1 % (45-73); Platelet Count 346 X10*3/uL (160-400); Red Blood Count 5.25 X10*6/uL (4.20-5.50); Red Cell Distribution Width 14.3 % (11.0-16.0); White Blood Count 7.4 X10*3/uL (4.8-10.8)
[2023-05-14 13:22] LABS: INTERNATIONAL NORM RATIO 1.3 (0.9-1.1); Prothrombin Time 15.6 SEC (11.1-13.3)
[2023-05-14 13:25] LABS: Partial Thromboplastin Time 34.3 SEC (26.0-36.4)
[2023-05-14 13:40] LABS: Estimated Average Glucose 114 mg/dL; Hemoglobin A1c % 5.6 % (<6.0)
[2023-05-14 14:12] LABS: Alanine Aminotransferase 87 U/L (0-31); Albumin Level 4.5 g/dL (3.5-5.0); Alkaline Phosphatase 64 U/L (39-117); Anion Gap 15 (12-20); Aspartate Amino Transferase 65 U/L (5-31); Bilirubin Total 0.5 mg/dL (0.0-1.0); Blood Urea Nitrogen 10 mg/dL (9-16); C Reactive Protein 3.42 mg/dL (< or = 0.50); Carbon Dioxide 24 mmol/L (22-29); Chloride 104 mmol/L (96-108); Cholesterol 169 mg/dL (<200); Estimated Glomerular Filt Rate > 60; Glucose Random 68 mg/dL (60-115); HDL Cholesterol 36 mg/dL (>40); LDL Cholesterol Calculated 115 mg/dL (<100); Sodium 139 mmol/L (135-145); Total Protein 8.8 g/dL (6.5-8.0); Triglycerides 92 mg/dL (<150)
[2023-05-14 14:18] LABS: Insulin 13 uU/mL (2-29); TSH reflex Free T4 2.68 uIU/mL (0.32-4.0)
== END 2023-05-14 11:53 | disposition home or self-care (01) ==
LOC: HO.LAB 11:52
PROVIDERS: PCP Internal Medicine; Visit Provider Surgery
DX: E66.01 Morbid (severe) obesity due to excess calories (principal); K21.9 Gastro-esophageal reflux disease without esophagitis; K76.0 Fatty (change of) liver, not elsewhere classified; E03.9 Hypothyroidism, unspecified; G47.30 Sleep apnea, unspecified
CPT/HCPCS: 36415; 80053; 80061; 83036; 83525; 84443; 85025; 85610; 85730; 86140

== ENCOUNTER 2023-05-20 06:15 | Inpatient (IN) | payer BC, SELFPAY ==
[2023-05-13 12:51] VITALS: BMI 39.9
--- NOTE | 2023-05-17 14:05 | MHC.SHP ---
Pre-Procedural Eval Section A Date of Service: 05/17/23 The patient is an INPATIENT: Yes The History & Physical has been completed within 30 days and I have reviewed it.: Yes Section B Chief Complaint: Morbid (severe) obesity due to excess calories Relevant Family History (Specify if Yes): No Relevant Social History: None Present Medications: None Medical History: No relevant PMH History of Previous Operations: No relevant previous surgery Allergies: Allergies Allergy/AdvReac Type Severity Reaction Status Date / Time shellfish Allergy Intermediate Itching, Uncoded 05/13/23 12:51 hives, rash Review of Systems Sugical H&P ROS: Negative: Constitution, Cardiovascular, Respiratory, Neurological, Psychiatric, Hem-Onc, Allergic/Immunologic, Gastrointestinal, Genitourinary, Musculoskeletal, Integumentary, Endocrine and Eyes/Ears/Nose/Throat Exam Surgical H&P Exam: Normal: HEENT, Normal: Heart, Normal: Lungs, Normal: Extremities, Normal: Abdomen, Normal: Skin and Normal: Neurological Plan Diagnosis/Plan: Unchanged I have reviewed the history and physical and performed a pertinent physical examination on my patient. No changes have occurred unless specified. Time Spent With Patient Time: Total time managing care of this patient today ____ minutes.
--- NOTE | 2023-05-19 09:40 | HO.ANESPROP2 ---
Documented by User: Clara Poole NP 05/19/23 09:41 HPI - Anesthesia Eval Consult details Narrative: 28yo F for Gastrectomy Sleeve - EGD, possible diaphragmatic hernia, possible ventral hernia, possible open PMFSH Active Problems Active Problems: All Active Problems (Updated 05/13/23 @ 12:58 by Ronda Spears, BECKY) Mild binge-eating disorder, in full remission (Acute) Vitamin A deficiency (Acute) Non-insulin dependent type 2 diabetes mellitus (Acute) Vitamin D deficiency (Acute) Steatosis, liver (Acute) Knee pain (Acute) GERD (gastroesophageal reflux disease) (Acute) Sleep apnea (Acute) Hypothyroidism (Acute) Morbid obesity (Acute) Past Medical History Medical History (Updated 05/20/23 @ 07:41 by Gonzales Leo MD) Diabetes Steatosis, liver Knee pain GERD (gastroesophageal reflux disease) Sleep apnea Hypothyroidism Morbid obesity Family History Family History Mother Hypertension Father Hypertension Diabetes Brother Asthma Brother No problems noted. Surgical History Surgical History Hx of wisdom tooth extraction Social History Social History (Updated 05/13/23 @ 12:55 by Ronda Spears RN) Household Members: Significant Other Are you a primary post acute care registered nurse to a significant other at home: No Do you presently have visiting nurse or other home services: No Alcohol intake: current Alcohol intake frequency: holidays/special occasions only Patient Tobacco Use Status: Never used Tobacco Use of substances other than those prescribed or required for medical reasons: No Have you been hit, kicked, punched, or otherwise hurt by someone within the past year? If so, by whom?: No Are you DNR?: No Advance Directives: No Advance Directives Information Provided: Yes Advance Directives on File: No Recently lost weight without trying: No Nutrition Risks: No Nutritional Risk Patient : No FDLMP: 05/12/2023 : No Poor oral hygiene: No (wears Invisalign at night) Meds Allergies Allergy/AdvReac Type Severity Reaction Status Date / Time shellfish Allergy Intermediate Itching, Uncoded 05/13/23 12:51 hives, rash Exam Exam Date and Time: May 19, 2023 0940 Height,Weight and Vital Signs: Height 5 ft 6 in Weight 112.037 kg Pertinent Lab Results Pertinent Lab Results: Laboratory Tests 05/14/23 12:02 Blood Type O Positive Antibody Screen NEGATIVE Laboratory Tests 05/14/23 12:11 WBC 7.4 Hgb 13.9 Hct 43.1 Plt Count 346 Sodium 139 Potassium 4.0 Chloride 104 Carbon Dioxide 24 BUN 10 Creatinine 0.74 Narrative Narrative: EKG 01/2023 Vent. Rate : 090 BPM Atrial Rate : 090 BPM P-R Int : 154 ms QRS Dur : 084 ms QT Int : 380 ms P-R-T Axes : 034 031 024 degrees QTc Int : 464 ms Normal sinus rhythm Normal ECG No previous ECGs available Assessment and Plan Assessment Anesthesia Assessment: Chart Reviewed Documented by User: Ruben Aguirre MD 05/20/23 08:03 [facility] Past Medical History Medical History (Updated 05/20/23 @ 07:41 by Gonzales Leo MD) Diabetes Steatosis, liver Knee pain GERD (gastroesophageal reflux disease) Sleep apnea Hypothyroidism Morbid obesity Family History Family History Mother Hypertension Father Hypertension Diabetes Brother Asthma Brother No problems noted. Family history of problems with anesthesia: No Surgical History Surgical History Hx of wisdom tooth extraction History of Problems with Anesthesia: No Social History Social History (Updated 05/13/23 @ 12:55 by Ronda Spears RN) Household Members: Significant Other Are you a primary post acute care registered nurse to a significant other at home: No Do you presently have visiting nurse or other home services: No Alcohol intake: current Alcohol intake frequency: holidays/special occasions only Patient Tobacco Use Status: Never used Tobacco Use of substances other than those prescribed or required for medical reasons: No Have you been hit, kicked, punched, or otherwise hurt by someone within the past year? If so, by whom?: No Are you DNR?: No Advance Directives: No Advance Directives Information Provided: Yes Advance Directives on File: No Recently lost weight without trying: No Nutrition Risks: No Nutritional Risk Patient : No FDLMP: 05/12/2023 : No Poor oral hygiene: No (wears Invisalign at night) Meds Allergies Allergy/AdvReac Type Severity Reaction Status Date / Time shellfish Allergy Intermediate Itching, Uncoded 05/13/23 12:51 hives, rash Exam Airway Mallampati Class: IV TM Dist: >3cm Neck ROM: Full Assessment and Plan Assessment Anesthesia Assessment: Anesthesia Plan Discussed Final Anesthetic Review Family History of Problems with Anesthesia: No History of Problems with Anesthesia: No NPO: Yes ASA Class: III Final Preanesthetic Review: No Changes in Pt Med Stat, Meds/Allgs Chart Reviewed, Consent Obtained/Reviewed and Anes Risks/Benef Reviewed Patient Risk: Intermediate Procedure Risk: Intermediate Anesthetic Plan Anesthetic Plan: GA Disposition: Standard PACU
[2023-05-20] VITALS (11 sets, daily range): BP systolic 106–151; BP diastolic 60–90; PULSE 86–103; RESP 16–27; TEMP 36.3–37.1; O2SAT 94–100
[2023-05-20 06:28] LABS: UPreg QC Valid YES; Urine Pregnancy NEGATIVE (NEGATIVE)
[2023-05-20 06:48] LABS: Glucose, Whole Blood 84 mg/dL (60-115)
[2023-05-20] MEDS: Aprepitant 32 MG/4.4 ML VIAL IVPUSH (06:49)
[2023-05-20] MEDS: Lactated Ringers 1,000 ML 999 ML IV (06:50)
--- NOTE | 2023-05-20 07:35 | P.BOP_ITS ---
Brief Operative Note Date of Service: 05/20/23 Pre-op diagnosis: Severe obesity with comorbidities (see below) Post-op diagnosis: same Procedure: INITIAL PATIENT BMI ON PRESENTATION AT OUR OFFICE: 43.9 kg/m2 LAST BMI BEFORE SURGERY: 38.9 kg/m2 COMORBIDITIES: non-insulin dependent diabetes, hypothyroidism, GERD, knee pain, sleep apnea, liver steatosis, liver fibrosis ?The patient presented to the Weight Management Program with significant obesity that was negatively impacting the patient's comorbidities as listed above.? The program is a phased program with a special focus on preoperative medical weight management to promote substantial weight loss and prepare the patients for the second phase of the program: bariatric surgery. The patient participated in an intensive weekly lifestyle ?intervention and exercise program during which the patient ?has lost between the initial office visit and the last preoperative visit 24.7lbs, or 9.08% of initial actual body weight. It was deemed appropriate for the patient to now have bariatric surgery. In light of the current Covid-19 pandemic and the well documented strong association of obesity and increased risk of worse outcomes if infected with Covid-19 (REFERENCES: https ://pubmed.ncbi.nlm.nih.gov/97904740/ ,? https://pubmed.ncbi.nlm.nih.gov/65689976/ ), any delay in undergoing bariatric surgery may lead to the patient's worsening health condition and increased?risk of more severe Covid-19 disease if infected. In addition a recent?study from [facility] published in [facility] on 08/27/2021 ([email or web address]) found that, among patients with obesity, substantial weight loss achieved with surgery was associated with improved outcomes of COVID-19 infection. The findings suggest that obesity can be a modifiable risk factor for the severity of COVID-19 infection. In addition, the patient met the BMI-criteria for bariatric surgery based on the BMI on initial presentation. The patient should not be penalized for achieving such weight loss because ?it is not sustainable long-term without surgical intervention and it was achieved in preparation for bariatric surgery ?under my direction and based on my published research ([email or web address]).[email or web address] and? https://www.soard.org/article/K2788-1130(31)85030-X/pdf ) ?that a 10% preoperative weight loss improves long-term weight loss after surgery and reduces perioperative complications.? Insurance carriers such as [facility] have endorsed my recommendations ?and have included in their policies criteria to include a 10% preoperative weight loss requirement. PROCEDURE: Esophago-gastroscopy,laparoscopic lysis of adhesions, laparoscopic sleeve gastrectomy and laparoscopic gastropexy INDICATIONS: This is a 28 year-old female who was electively scheduled for laparoscopic, possibly open sleeve gastrectomy. The risks and complications of the procedure were discussed with the patient in advance, particularly the possibility of ; pulmonary embolism; staple line leak; bleeding; GERD; cardiac, pulmonary, or renal complications; as well as long-term problems such as insufficient weight loss, vitamin deficiency, strictures, or ulcers. The patient understood all the risks, and was in agreement to proceed with surgery. DESCRIPTION OF PROCEDURE: After informed consent was obtained from the patient, the patient was given preoperative antibiotics, and was transferred to the operating room. After successful induction of general anesthesia, pneumatic compression devices were placed on both lower extremities. An upper endoscopy was performed next. The oropharynx and esophagus appeared to be within normal limits. There was no diaphragmatic hernia present consistent with the findings of the preoperative upper GI. The stomach was entered. Then after all fluid and air were suctioned and the stomach was fully decompressed, the scope was withdrawn and secured in the mid esophagus. The patient was then prepped and draped in the usual sterile manner, and abdominal access was established at the right upper quadrant with the Suresh technique. A 12 mm blunt port was inserted, and the abdomen was insufflated with CO2 to a pressure of 15 mmHg. Under direct visualization, additional ports were placed, specifically two 5 mm Versi-step ports to the left upper quadrant, and a 5 mm Versi-Step port to the right upper quadrant. 1% lidocaine plain was used to infiltrate all port sites as well as all fascia defects. Following that, the patient was placed in a steep reverse Trendelenburg position. An additional 5 mm port was placed to the right flank for the Mediflex retractor that was used to retract the left lobe of the liver. The gastro-esophageal fat pad was opened with the ultrasonic device (Thunderbeat, Olympus) and the anterior esophagus and hiatus were exposed. The angle of His was opened with the ultrasonic device the fundus of the stomach from any diaphragmatic and splenic attachments. I then opened the gastrocolic ligament between the transverse colon and the greater curvature of the stomach with the ultrasonic device to enter the lesser sac and facilitate the ligation of the short gastric vessels. I started at a mid-point along the greater curvature and using the Thunderbeat, all short gastric vessels were divided all the way to the angle of His until the left liset was completely dissected at its entirety. I then divided the gastro-colic ligament distally to a distance of about 3-4 cm proximal to the pylorus. There were extensive congenital adhesions between the pancreas and posterior gastric wall. Those were lysed completely with the ultrasonic device. Adhesiolysis took approximately 45 min to complete. The stomach was then divided transversely with two Endo FRANKIE-45 purple and four FRANKIE-60 articulating purple loads using the JumpPostIA stapler and loads. Every effort was made that the gastric sleeve had a tubular shape and an even caliber throughout. Once the sleeve resection was completed, the staple line of the gastric sleeve was reinforced with Hemoclips. The resected stomach was retrieved without difficulty from the Suresh port. A gastropexy was then performed in order to prevent postoperative GERD and partial gastric volvulus. Several interrupted 2.0 Surgidac sutures were placed b etween the sleeve's staple line and the previously divided greater omentum and gastro-colic ligament using the Endo-Stitch device. ?An upper endoscopy was performed. There was no narrowing at the GE junction. The scope was easily advanced all the way to the pylorus which was clearly visualized. There was no narrowing anywhere and the sleeve's caliber was even throughout. The sleeve's staple line was inspected and there was no evidence of ischemia, bleeding or dehiscence. At that point the gastroscope was withdrawn from the patient?s mouth while we were decompressing the bowel and the stomach from any remaining air. I looked into the lesser sac to see how the sleeve was situating and it was situating well. There was no bleeding from the staple line, spleen, or short gastric vessels. The Mediflex retractor was removed, and the undersurface of the liver was inspected and there was no bleeding. The patient was placed in supine position. I closed the fascial defect of the 12 mm port site with a figure of eight #1 Polysorb suture. Then 30cc Ropivacaine plain with 10 mg of Dexamethasone were used to infiltrate the fascial closure as well as all skin incisions. At this point, the abdomen was deflated, all ports were removed under direct vision, and no bleeding was noted from any of the port sites. The skin incisions were irrigated with saline and were closed with 4-0 absorbable monofilament sutures. Steri-Strips and OpSites were used to cover all incisions. The patient was extubated and was transferred in stable condition to the recovery room for further care. I was present and performed all tuttle parts of the procedure. Ms. Huang was the project administrative assistant. There were no residents to assist with this case. Tyler Leo MD, PhD, FACS Surgeon: Gonzales Leo MD Anesthesia: GETA, local and other (TAP block) Was an Materials Engineering Technician used for this Procedure?: No Materials Engineering Technician: Lynette Huang Estimated blood loss (mL): 10 IV fluids (mL): 1,600 Urine output (mL): 0 (No Arreguin to record output) Pathology: other (Stomach) Condition: stable Disposition: PACU
--- NOTE | 2023-05-20 07:40 | P.PNGS_ITS ---
Subjective Subjective Date of Service: 05/21/23 Interval history: Feels well. Mild incisional pain. She is tolerating phase 1 bariatric diet Physical Exam 2 Vital Signs: Vital Signs: Last Vital Signs Temp 97.3 F 05/20/23 06:48 Pulse 93 05/20/23 06:48 Resp 16 05/20/23 06:48 BP 106/60 05/20/23 06:48 Pulse Ox 98 05/20/23 06:48 O2 Del Method Room Air 05/20/23 06:48 BMI result Body Mass Index 39.9 GI: Inspection: Yes normal to inspection, Yes incision (clean, dry and intact) and Yes obesity Palpation (GI): Soft to palpation Extrem: Right lower extremity: normal to inspection (no calf tenderness) L eft lower extremity: normal to inspection (no calf tenderness) Objective Data Active Medications Lactated Ringer's (Lr) 1,000 mls @ 100 mls/hr IVCONT .Q10H KUNAL Lactated Ringer's (Lr) 1,000 mls @ 999 mls/hr IV .Q1H1M KUNAL Stop: 05/20/23 08:15 Last Admin: 05/20/23 06:50 Dose: 999 mls/hr Documented By: ALINE Labs 05/21/23 05:28 05/21/23 05:28 Labs: Laboratory Results - last 24 hr 05/20/23 05/20/23 06:13 06:36 POC Glucose 84 Urine Test NEGATIVE Procedures Date of Service Date of Service: 05/21/23 Progress Note: A&P Assessment and plan (1) Obesity: Status: Acute Assessment and Plan: s/p laparoscopic sleeve gastrectomy, lysis of adhesions and gastropexy Doing well Will check am labs and if OK the patient will be discharged home (2) BMI 38.0-38.9,adult: Status: Acute (3) Sleep apnea: Status: Acute (4) GERD (gastroesophageal reflux disease): Status: Acute (5) Knee pain: Status: Acute (6) Steatosis, liver: Status: Acute (7) Hypothyroidism: Status: Acute (8) Liver fibrosis: Status: Acute (9) Non-insulin dependent type 2 diabetes mellitus: Status: Acute (10) S/P laparoscopic sleeve gastrectomy: Status: Acute (11) Congenital intra-abdominal adhesions: Status: Acute Time Spent With Patient Time: Total time managing care of this patient today ____ minutes. Quality Stroke Does the patient have a stroke diagnosis?: No VTE Prior VTE?: No VTE Risk Level:: Surgical - moderate VTE Device Contraindication: N/A - Device Ordered VTE Drug Contraindication: Treatment Not Indicated
[2023-05-20] MEDS: ceFAZolin Sodium/Dextrose,Iso 2 GM/50 ML PIGGYBACK IV ×2 (07:45→12:34)
[2023-05-20] MEDS: Acetaminophen 1,000 MG/100 ML PIGGYBACK 400 MG IV (09:15)
--- NOTE | 2023-05-20 09:41 | PM.DS ---
DS: Providers Provider Date of Service: 05/21/23 Date of admission: 05/20/23 06:15 Primary care physician: Jennifer Denny MD DS: Diagnosis Discharge Diagnosis (1) Obesity: Status: Acute (2) BMI 38.0-38.9,adult: Status: Acute (3) Sleep apnea: Status: Acute (4) GERD (gastroesophageal reflux disease): Status: Acute (5) Knee pain: Status: Acute (6) Steatosis, liver: Status: Acute (7) Hypothyroidism: Status: Acute (8) Liver fibrosis: Status: Acute (9) Non-insulin dependent type 2 diabetes mellitus: Status: Acute DS: Summary Hospital Course Hospital Course: ADMITTING DIAGNOSIS: morbid obesity, DM, FAIZA, Hypothyroid, GERD DISCHARGE DIAGNOSIS: same, s/p laparoscopic sleeve gastrectomy PAST SURGICAL HISTORY: none PROCEDURE: upper endoscopy, laparoscopic sleeve gastrectomy DISCHARGE SUMMARY: History of Present Illness: The patient is a 28 year-old woman with a BMI of 43.9kg/m2 and associated co-morbidities as described above. The patient had extensive work-up, lost 20 lbs preoperatively and was electively scheduled for laparoscopic, possible open sleeve gastrectomy and gastropexy. Risks and complications of the surgery were discussed with the patient in advance, particularly the possibility of , pulmonary embolism, anastomotic leak, bleeding, bowel injury, GERD, cardiac, renal or pulmonary complications. The patient understood all the risks and was in agreement with the surgical plan. Hospital Course: The patient underwent an uneventful laparoscopic sleeve gastrectomy with gastropexy on the day of admission. Postoperatively, the patient was transferred to the surgical floor. The patient received IV Acetaminophen and IV dilaudid for pain control. Patient was started on bariatric phase 1 diet POD #0. On postoperative day one, the patient was feeling well without nausea, vomiting, fevers, or tachycardia. The patient had some mild incisional pain and the abdomen was soft. On the morning of postoperative day one, the patient was continued on 1 ounce of water or ice every half hour. During the day, the patient did fairly well, having some incisional pain, but able to ambulate adequately and to tolerate liquids well. Since the patient is doing well, we decided that the patient was ready to be discharged. The patient was given instructions to follow-up with me next week and to call my office for any fever over 101, persistent abdominal pain, nausea, vomiting, GERD, symptoms of DVT such as calf tenderness, or leg swelling, or pulmonary embolism such as chest pain or shortness of breath. The patient was also instructed to drink 40-60 ounces of liquids per day using the 1-ounce cups. The patient had been given prescriptions for Tylenol for pain, Zofran prn for nausea, and pantoprazole and carafate previously. The patient was encouraged to ambulate and use the incentive spirometer. The patient was allowed to shower, but no baths, and encouraged to stay active at home. All of these instructions were given to the patient personally. All questions were answered and the patient understood all instructions, the instructions were also given to the patient in print. Time Spent with Patient Time attestation: Total time managing care of this patient today ____ minutes. Discharge coordination time: Less than 30 minutes Quality: Safe Use of Opioids Does Pt have an Active Cancer Diagnosis on the Problem List?: No Quality: Stroke Does the patient have a stroke diagnosis?: No Physical Exam Vital Signs: Vital Signs: Last Vital Signs Temp 97.3 F 05/20/23 06:48 Pulse 93 05/20/23 06:48 Resp 16 05/20/23 06:48 BP 106/60 05/20/23 06:48 Pulse Ox 98 05/20/23 06:48 O2 Del Method Room Air 05/20/23 06:48 BMI result Body Mass Index 39.9 DS: Data Data Completed and Pending Pending studies at discharge: Pending at discharge 05/20/23 08:53 Surgical [PTH] Routine Labs on day of discharge: Laboratory Results - last 24 hr 05/20/23 05/20/23 06:13 06:36 POC Glucose 84 Urine Test NEGATIVE Discharge Plan Discharge Anticipated Discharge Date/Time: 05/21/23 10:38 Patient Disposition: Home, Self-Care Discharge Diagnosis: s/p sleeve gastrectomy Referrals: Jennifer Denny MD [Primary Care Provider] - 1 Week Discharge Medications: Continued pantoprazole 40 mg tablet,delayed release (DR/EC) 40 mg PO DAILY Qty: 30 2RF sucralfate 100 mg/mL suspension 10 ml PO BID Qty: 400 2RF ondansetron 4 mg tablet,disintegrating 4 mg PO Q12H Qty: 20 0RF Rx Instructions: Only take one every 12 hours as needed if you have nausea Held metformin 1,000 mg tablet 1,000 mg PO BID Qty: 60 2RF Hold Instructions: Discuss with Dr Daina Milton vitamin A palmitate 3,000 mcg (10,000 unit) capsule 10,000 unit PO .COMPLEX Qty: 30 2RF Rx Instructions: 10,000 units orally one per day; cholecalciferol (vitamin D3) 125 mcg (5,000 unit) capsule 125 mcg PO DAILY Qty: 90 0RF Discharge Orders: Discharge Order (Routine); Ordered 05/21/23 Ordered By: Gonzales Leo Activity on Discharge: No heavy lifting Stand Alone Forms: Patient Portal Discharge page Care Plan Goals: weight loss Health Concerns: obesity Plan of Treatment: No tub baths, sex or returning to work until discussed at first post op appointment. No exercise, alcohol, tobacco or illegal drug use. Continue to use incentive spirometer hourly while awake. Walk in home for 5- 10 minutes every 2 hours during the first week. Continue phase 1 diet today and start phase 2 diet tomorrow morning. Follow all instructions in the bariatric handbook and call with any questions. 1. Please call your doctor or come back to the emergency room should any new symptoms arise. 2. You will receive a courtesy call from [facility] 24-48 hours after discharge. 3. Activity: abstain from alcohol, practice limited stair climbing, no bending, no driving, no exercise, no illicit substances, no lifting, no sex, no tub bath, no work. 4. Diet: continue as discussed with bariatric team.. 5. Dressing Change/Wound Care: Do not change or remove surgical dressings unless they are wet or soiled. 6. Call your doctor if: - Your temperature exceeds 101.5 F - You experience excessive pain or swelling - You have an unexpected reaction to medication - You have excessive bleeding - You experience continued vomiting/nausea - Your incision begins to separate - Your incision shows signs of infection such as increased redness, swelling, excessive pain, heat, or drainage (light blood or clear fluid is normal) 7. General instructions: No lifting greater than 5 lbs for 1 week and not more than 20lbs the next 3?weeks. No driving until seen at the office in 5-7 days after surgery. If you do not move your bowels in the next 2 days, please tell?Dr. Leo. Please walk around your home every hour or two to prevent blood clots from forming in your legs. You do not need to wake from sleeping to walk. Please sleep in a bed or couch to prevent kinking at the hips and knees. Please take your incentive spirometer (your lung digital operations analyst) home with you and use it for the next few days to prevent pneumonia. You may shower, no hot tubs, baths or swimming pools.?Please follow the post op diet instructions you are?given by Dr Daina reyes? and text me daily at 5-6pm for an update.?If you have any issues or concerns or questions please communicate this to him via text.? The Celebrate shakes have all of the bariatric vitamins you need if you consume these shakes. If you are drinking other protein shakes, you will need to purchase the Celebrate multivitamins and calcium that are available in the hospital gift shop on the first floor of the main hospital.??Do not take anything without first discussing with Dr Leo. Please make sure you are consuming at least 40 ounces of fluids per day starting the?day AFTER your discharge from the hospital. Always drink 1-2 ml per minute using the 5ml?syringe. If you drink faster you may experience?bloating,?gas pain, burping, nausea or heartburn. In that case please slow down your pace and use the syringe to?understand better the?proper?pace and volume of drinking. Do not hesitate to contact the office with any questions at . The patient's medical history has been reviewed and they are considered low risk for post op DVT and therefore DVT prophylaxis is not considered necessary. Travel after surgery was reviewed. The patient has not disclosed any travel plans during the first 30 days after surgery and they have been advised that within the first 30 days after surgery any bus, plane, train or car travel over 2 hours in duration is contraindicated due to the possibility of developing blood clots from immobility. Any travel, needs to include periods of ambulation of 10 minutes in duration every 2 hours. The patient was instructed to discuss any plans for travel during this period with their bariatric surgeon. Assessment: stable, post op sleev gastrectomy Discharge Date/Time: 05/21/23 09:53
--- NOTE | 2023-05-20 09:59 | PHA.MEDREC ---
Pharmacy Consult ? Medication Reconciliation Pharmacy has completed the medication reconciliation. Reviewed med rec done by nursing
[2023-05-20] MEDS: ondansetron HCL 4 MG/2 ML VIAL IVPUSH (10:12)
[2023-05-20] MEDS: Famotidine/PF 20 MG/2 ML VIAL IVPUSH ×2 (11:02→21:24)
[2023-05-20] MEDS: Lactated Ringers 1,000 ML 100 ML IVCONT ×2 (11:04→21:24)
[2023-05-20 11:31] LABS: Glucose, Whole Blood 125 mg/dL (60-115)
[2023-05-20 13:45] LABS: Hematocrit 39.4 % (37.0-47.0); Hemoglobin 12.9 g/dl (12.0-16.0)
[2023-05-20 14:07] LABS: Anion Gap 13 (12-20); Blood Urea Nitrogen 7 mg/dL (9-16); Calcium 9.2 mg/dL (8.4-10.2); Carbon Dioxide 21 mmol/L (22-29); Chloride 104 mmol/L (96-108); Creatinine Clr Calc Pharmacy 148.2; Estimated Glomerular Filt Rate > 60; Glucose Random 143 mg/dL (60-115); Potassium 3.8 mmol/L (3.3-5.1); Sodium 134 mmol/L (135-145)
[2023-05-20 15:11] LABS: Glucose, Whole Blood 123 mg/dL (60-115)
[2023-05-20 21:16] LABS: Glucose, Whole Blood 110 mg/dL (60-115)
[2023-05-21 03:03] VITALS: BP 112/61; PULSE 90; RESP 18; TEMP 36.1; O2SAT 94
[2023-05-21 03:56] LABS: Glucose, Whole Blood 113 mg/dL (60-115)
[2023-05-21 06:03] LABS: MANUAL DIFF FLAG NO
[2023-05-21 06:06] LABS: Basophils Percent Auto 0.1 % (0-2); Hematocrit 39.7 % (37.0-47.0); Hemoglobin 13.1 g/dl (12.0-16.0); Imm Gran Abs Auto 0.02 X10*3/uL (0.00-0.03); Imm Gran Pct Auto 0.3 % (0.0-0.4); Lymphocytes Absolute Auto 1.3 X10*3/uL (1.2-4.9); Lymphocytes Percent Auto 17.6 % (20-40); Mean Corpuscular Volume 81.7 fL (80.0-98.0); Mean Platelet Volume 10.2 fL (9.4-12.3); Monocytes Absolute Auto 0.4 X10*3/uL (0.1-1.2); Monocytes Percent Auto 5.7 % (2-11); Neutrophils Absolute Auto 5.5 x10*3/uL (2.0-8.3); Neutrophils Percent Auto 76.3 % (45-73); Platelet Count 320 X10*3/uL (160-400); Red Blood Count 4.86 X10*6/uL (4.20-5.50); Red Cell Distribution Width 14.3 % (11.0-16.0); White Blood Count 7.2 X10*3/uL (4.8-10.8)
[2023-05-21 06:21] LABS: Anion Gap 15 (12-20); Blood Urea Nitrogen 5 mg/dL (9-16); Calcium 9.7 mg/dL (8.4-10.2); Carbon Dioxide 22 mmol/L (22-29); Chloride 106 mmol/L (96-108); Creatinine Clr Calc Pharmacy 166.4; Estimated Glomerular Filt Rate > 60; Glucose Random 101 mg/dL (60-115); Sodium 139 mmol/L (135-145)
[2023-05-21 06:43] LABS: Glucose, Whole Blood 96 mg/dL (60-115)
[2023-05-21] MEDS: Famotidine/PF 20 MG/2 ML VIAL IVPUSH (07:04)
[2023-05-21 07:35] VITALS: BP 132/75; PULSE 85; RESP 20; TEMP 36.3; O2SAT 98
[2023-05-21 08:03] VITALS: O2SAT 95
--- NOTE | 2023-05-21 10:53 | HO.POSTANES ---
Post Anesthesia Evaluation Post Anesthesia Evaluation Date of Service: 05/21/23 Vital Signs: Vital Signs Temp Pulse Resp BP Pulse Ox O2 Del Method 05/21/23 08:03 95 Room Air 05/21/23 07:35 97.4 F 85 20 132/75 98 Room Air 05/21/23 03:03 97.0 F 90 18 112/61 94 Room Air Anesthesia: General Endotracheal-GETA Mental Status: Awake Pain Control: Satisfactory (mild incisional pain) Nausea/Vomiting: None Hydration: Adequate Anesthesia-Related Issues: No Anes. Related Issues
== END 2023-05-21 09:53 | disposition home or self-care (01) | DRG 403 ==
LOC: HO.SSSA 09:41 → HO.S3 10:29
PROVIDERS: Nurse Practitioner; Physician Assistant; Admitting Provider Surgery; PCP Internal Medicine; Visit Provider Surgery
PROC: 0DB64Z3 Excision of Stomach, Percutaneous Endoscopic Approach, Vertical (ICD-10-PCS; CPT 43845; principal; 2023-05-20 07:30)
DX: E66.01 Morbid (severe) obesity due to excess calories (principal); K74.00 Hepatic fibrosis, unspecified; K76.0 Fatty (change of) liver, not elsewhere classified; E03.9 Hypothyroidism, unspecified; K66.0 Peritoneal adhesions (postprocedural) (postinfection); G47.30 Sleep apnea, unspecified; K21.9 Gastro-esophageal reflux disease without esophagitis; Z68.41 Body mass index [BMI] 40.0-44.9, adult; Z79.84 Long term (current) use of oral hypoglycemic drugs; Z79.899 Other long term (current) drug therapy
CPT/HCPCS: 36415; 80048; 81025; 82947; 85014; 85018; 85025; 86850; 86900; 86901; 88304; 88305; 88307; 88342; A4649; C9088; C9145; J0131; J0690; J1100; J1170; J2250; J2405; J2550; J2795; J3010

== ENCOUNTER → 2023-05-20 06:15 | Outpatient (BNV) | payer BC, SELFPAY | PROVIDERS: Admitting Provider Surgery; PCP Internal Medicine; Visit Provider Surgery | DX: E66.9 Obesity, unspecified (principal); Z68.38 Body mass index [BMI] 38.0-38.9, adult; K66.0 Peritoneal adhesions (postprocedural) (postinfection) | CPT/HCPCS: 43659; 43775 ==

== ENCOUNTER 2023-05-27 12:49 | Outpatient (AMB) | payer BC, SELFPAY ==
--- NOTE | 2023-05-27 13:11 | MHC.OFFVISWM ---
Intake VS Expanded 05/27/23 13:32 Height 5 ft 6 in Weight 235 lb BMI 37.9 BP 135/77 Blood Pressure Location Rt brachial Blood Pressure Position Sitting Pulse 91 Pulse Source Pulse Oximeter Temp 97.6 F Pulse Oximetry 98 Oxygen Delivery Method Room Air Body Fat 103.8 Body Fat Percentage 44.2 Free Fat Mass 131.0 Muscle Mass 124.4 Visceral Mass 10.0 Water Mass 94.2 BMR 1,878 Intake Visit Reasons: (OV) 7 Days PO LSG 05/20/23 Allergies shellfish Allergy (Intermediate, Uncoded 05/13/23 12:51) Itching, hives, rash HPI HPI Comments History of Present Illness Details POD #7 s/p LSG on05/20/[address] Rashad BAKER weight of 272 lbs, TBWL is 37 lbs ort 13.6 % Be sure to text Dr Leo your weight from your home scale exactly 1 week after surgery so he can adjust your meal plan. Continue meal plan until f/u with Talha at 30 - 34 days post op May shower, no submersion in bath for another week Continue abdominal binder with activity and exercise for the next 2 weeks. Exercise prior to surgery was elliptical and bike, may resume walking now 30 minutes per day. No abdominal exercises for 6 weeks post operatively You will be emailed a link for the post op video for review Reminded of the pace of drinking, 2 mL per minute, 1 oz/15 min. [facility] Medical History (Updated 05/22/23 @ 00:03 by Rebecca More) Diabetes Steatosis, liver Knee pain GERD (gastroesophageal reflux disease) Sleep apnea Hypothyroidism Morbid obesity Surgical History (Updated 05/27/23 @ 13:31 by Bernadine Santos CMA) S/P laparoscopic sleeve gastrectomy Hx of wisdom tooth extraction Family History Mother Hypertension Father Hypertension Diabetes Brother Asthma Brother No problems noted. Social History Household Members: Family Housing: Apartment Are you a primary critical care educator to a significant other at home: No Do you presently have visiting nurse or other home services: No Alcohol intake: current Alcohol intake frequency: holidays/special occasions only Patient Tobacco Use Status: Never used Tobacco Physical Exam Vital Signs: Last Vital Signs Temp 97.6 F 05/27/23 13:32 Pulse 91 05/27/23 13:32 BP 135/77 05/27/23 13:32 Pulse Ox 98 05/27/23 13:32 Oxygen Delivery Method Room Air 05/27/23 13:32 BMI result Body Mass Index 37.9 Const General: cooperative, healthy appearing, comfortable and no acute distress GI Inspection: Yes incision (c/d/i with steri strips in place) Palpation (GI): Soft to palpation, nontender, no hernias and no masses Assessment & Plan Assessment & Plan (1) S/P laparoscopic sleeve gastrectomy: Code(s): Z98.84 - Bariatric surgery status Plan: 7 days post op no complications. Rylan study paperwork completed. Will text Dr Lama for meal and exericse advancment. Next appt Talha 30 -34 days post op Coding Level of Care Code Global (63070) Diagnoses S/P laparoscopic sleeve gastrectomy Z98.84
[2023-05-27 13:32] VITALS: BP 135/77; PULSE 91; TEMP 36.4; O2SAT 98; BMI 37.9
== END 2023-05-27 14:04 | disposition home or self-care (01) ==
PROVIDERS: Visit Provider Physician Assistant
DX: Z98.84 Bariatric surgery status (principal)
CPT/HCPCS: 99024

== ENCOUNTER → 2023-05-27 12:49 | Outpatient (BNVA) | payer BC, SELFPAY | PROVIDERS: Visit Provider Physician Assistant ==

== ENCOUNTER 2023-05-29 10:31 | Outpatient (AMB) | payer BC, SELFPAY ==
--- NOTE | 2023-06-02 14:00 | A.OFFWM_ITS ---
Intake Intake Visit Reasons: VIDEO BH F/U Allergies shellfish Allergy (Intermediate, Uncoded 05/13/23 12:51) Itching, hives, rash PFSH Medical History (Updated 05/22/23 @ 00:03 by Rebecca More) Diabetes Steatosis, liver Knee pain GERD (gastroesophageal reflux disease) Sleep apnea Hypothyroidism Morbid obesity Surgical History (Updated 05/27/23 @ 13:31 by Bernadine Santos CMA) S/P laparoscopic sleeve gastrectomy Hx of wisdom tooth extraction Family History Mother Hypertension Father Hypertension Diabetes Brother Asthma Brother No problems noted. Social History Household Members: Family Housing: Apartment Are you a primary director of career resources to a significant other at home: No Do you presently have visiting nurse or other home services: No Alcohol intake: current Alcohol intake frequency: holidays/special occasions only Patient Tobacco Use Status: Never used Tobacco Behavioral Health Assessment Weight Management Therapy Therapy Notes Details Patient reported doing very well post surgery. She reported no issues, very surprised by her recovery. Discussed navigating work event and family relationships. Pt is looking to have weight loss surgery to help improve her health and quality of life. She reported seeing a therapist for two years and just closed her practice two months ago however did work and process with her the topic of weight loss surgery. Pt reported high stress, some depression, and binge eating symptoms in the past. She reported that she was referred to [facility] intensive outpatient program two years ago after going to [facility] weight management program seeking weight loss surgery. She spent 2-3months at the program online daily and then found a therapist who specialized in BED. Pt stated that she had binge eating symptoms due to stress in her life at that time but also had become a habit since childhood. She started noticing in college when she saw how others were eating. Pt stated that her parents worked all the time as a child and had to fend for herself. Pt has no history of inpatient psychiatric admissions, legal problems, addiction to drugs or alcohol, and no history of self harming behaviors or suicide attempts. Presenting Concerns Referral Source provider Reason for referral weight loss surgery evaluation Precipitating Event obesity Living Situation Current Living Situation Own At risk of losing current housing? No Satisfied with current living situation? Yes Comments Pt lives with her fiance. Offer accepted today on a new home. Food/Weight/Diet Expectations of change weight loss and maintenance History/Relationship with food Pt reported her rel. has improved over the past couple of years. She has sought after treatment for binge eating, she will still over eat but not as intense as it was prior to, she has more awareness. Pt stated that she is more likely to over eat or binge when she is at a alliance party or gathering and there is a variety of different foods and wants to try them all. She reported that she would eat more carb heavy, lots of rice, meat, sweets/desserts. History/Relationship with weight She is currently at her heaviest weight. History/Relationship with dieting WMP at [facility] (260lbs) 2 years ago however did not qualify due to binge eating and also high stress in her life at that time. Binge Eating Do you frequently eat large amounts of food in short periods of time, not feeling physically hungry? Yes Do you feel out of control when you eat a large amount of food in a short period of time? No Do you eat large amounts of food rapidly and typically alone? Yes Night Eating Do you wake up at least once during the night to eat? No If you wake up in the night, do you find that it is necessary to eat something in order to fall back asleep? No Do you have little or no appetite in the morning and feel very hungry in the evening, often overeating between dinner and when you go to bed? No Social History Family history and relationship Pt is first generation here, her family is from [place]. She is engaged to be and has no children. She was raised by her parents and two older brothers. Her family lives in [place]. 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 none Education Highest grade completed bachelors in psychology and masters in communication Preferred learning style Auditory, Verbal, Written, Learn by doing and Visual Currently enrolled in educational program? No Interested in further educational program? 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 No Meaningful activities reading, going to the park Financial Situation Describe current financial situation Comfortable Financial assistance? None Service Service? No Mental Health and Addiction Treatment Current/Past substance abuse? No Current/Past addictive behavior concerns? No Medical and Physical Health Summary Physical exam in the last year? No Pain Screening Current pain? No Pain in the last few months? Yes Medications Is the patient compliant with medications? Yes Does the patient have Denise Guardian in place? Not applicable Does the patient use complimentary health approaches? No Trauma/Abuse History History of trauma? No Assessment & Plan Assessment & Plan (1) Mild binge-eating disorder, in full remission: Code(s): F50.81 - Binge eating disorder (2) Morbid obesity: Code(s): E66.01 - Morbid (severe) obesity due to excess calories Plan Pt is looking to have weight loss surgery. She discussed her past eating disorder and her work towards recovery from that. Patient is stable compared to when she has tried weight management program in the past. She has no serious mental health symptoms at this time. Pt is cleared for surgery when ready and communication throughout was strongly encouraged. . Telehealth Telehealth Location of provider rendering services: other Location of patient: address on file Patient Identification confirmed using: Name, : Yes Telehealth method: video Patient verbally consented to treatment: Yes Patient verbally consented to billing insurance company: Yes Patient informed of any privacy concerns related to visit: Yes Minutes spent on Phone/Video with Pt.: 40 Coding Level of Care Code Tele Psytx 45 mins (12851) Diagnoses Mild binge-eating disorder, in full remission F50.81 Morbid obesity E66.01 Time Spent (min) 40
== END 2023-06-02 14:00 | disposition home or self-care (01) ==
LOC: HO.HBST 10:31
PROVIDERS: Visit Provider Counselor Mental Health
DX: F50.81 Binge eating disorder (principal); E66.01 Morbid (severe) obesity due to excess calories; Z68.37 Body mass index [BMI] 37.0-37.9, adult
CPT/HCPCS: 90834

== ENCOUNTER → 2023-05-29 10:31 | Outpatient (BNVA) | payer BC, SELFPAY | PROVIDERS: Visit Provider Counselor Mental Health ==

== ENCOUNTER 2023-06-12 11:23 | Outpatient (AMB) | payer BC, SELFPAY ==
--- NOTE | 2023-06-12 11:32 | A.OFFWM_ITS ---
Intake Intake Visit Reasons: VIDEO PO LSG 05/20/23 Allergies shellfish Allergy (Intermediate, Uncoded 05/13/23 12:51) Itching, hives, rash PFSH Medical History (Updated 05/22/23 @ 00:03 by Rebecca More) Diabetes Steatosis, liver Knee pain GERD (gastroesophageal reflux disease) Sleep apnea Hypothyroidism Morbid obesity Surgical History (Updated 05/27/23 @ 13:31 by Bernadine Santos CMA) S/P laparoscopic sleeve gastrectomy Hx of wisdom tooth extraction Family History Mother Hypertension Father Hypertension Diabetes Brother Asthma Brother No problems noted. Social History Household Members: Family Housing: Apartment Are you a primary home health care physician to a significant other at home: No Do you presently have visiting nurse or other home services: No Alcohol intake: current Alcohol intake frequency: holidays/special occasions only Patient Tobacco Use Status: Never used Tobacco Behavioral Health Assessment Weight Management Therapy Therapy Notes Details Patient reported doing very well post surgery. 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 She is trying to build consistent workout routine and not weight herself constantly. Pt identified desire to weight lift however anxious about herself, her body and how to do it. Pt is looking to have weight loss surgery to help improve her health and quality of life. She reported seeing a therapist for two years and just closed her practice two months ago however did work and process with her the topic of weight loss surgery. Pt reported high stress, some depression, and binge eating symptoms in the past. She reported that she was referred to [facility] intensive outpatient program two years ago after going to [facility] weight management program seeking weight loss surgery. She spent 2-3months at the program online daily and then found a therapist who specialized in BED. Pt stated that she had binge eating symptoms due to stress in her life at that time but also had become a habit since childhood. She started noticing in college when she saw how others were eating. Pt stated that her parents worked all the time as a child and had to fend for herself. Pt has no history of inpatient psychiatric admissions, legal problems, addiction to drugs or alcohol, and no history of self harming behaviors or suicide at [facility]. Presenting Concerns Referral Source provider Reason for referral weight loss surgery evaluation Precipitating Event obesity Living Situation Current Living Situation Own At risk of losing current housing? No Satisfied with current living situation? Yes Comments Pt lives with her fiance. Offer accepted today on a new home. Food/Weight/Diet Expectations of change weight loss and maintenance History/Relationship with food Pt reported her rel. has improved over the past couple of years. She has sought after treatment for binge eating, she will still over eat but not as intense as it was prior to, she has more awareness. Pt stated that she is more likely to over eat or binge when she is at a democrat or gathering and there is a variety of different foods and wants to try them all. She reported that she would eat more carb heavy, lots of rice, meat, sweets/desserts. History/Relationship with weight She is currently at her heaviest weight. History/Relationship with dieting WMP at [facility] (260lbs) 2 years ago however did not qualify due to binge eating and also high stress in her life at that time. Binge Eating Do you frequently eat large amounts of food in short periods of time, not feeling physically hungry? Yes Do you feel out of control when you eat a large amount of food in a short period of time? No Do you eat large amounts of food rapidly and typically alone? Yes Night Eating Do you wake up at least once during the night to eat? No If you wake up in the night, do you find that it is necessary to eat something in order to fall back asleep? No Do you have little or no appetite in the morning and feel very hungry in the evening, often overeating between dinner and when you go to bed? No Social History Family history and relationship Pt is first generation here, her family is from [place]. She is engaged to be and has no children. She was raised by her parents and two older brothers. Her family lives in [place]. Parental/Familial instructor looping obligations none Developmental history and status no issues known Social support fianc?, mom Taoism/Spirituality Christianity Cultural/Ethnic information Citizen Of [place] Legal Involvement and History Current or historical involvement with the legal system? none Education Highest grade completed bachelors in psychology and masters in communication Preferred learning style Auditory, Verbal, Written, Learn by doing and Visual Currently enrolled in educational program? No Interested in further educational program? 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 No Meaningful activities reading, going to the park Financial Situation Describe current financial situation Comfortable Financial assistance? None Service Service? No Mental Health and Addiction Treatment Current/Past substance abuse? No Current/Past addictive behavior concerns? No Medical and Physical Health Summary Physical exam in the last year? No Pain Screening0 Current pain? No Pain in the last few months? Yes Medications Is the patient compliant with medications? Yes Does the patient have Denise Guardian in place? Not applicable Does the patient use complimentary health approaches? No Trauma/Abuse History History of trauma? No Assessment & Plan Assessment & Plan (1) Mild binge-eating disorder, in full remission: Code(s): F50.81 - Binge eating disorder (2) Morbid obesity: Code(s): E66.01 - Morbid (severe) obesity due to excess calories Plan Pt is looking to have weight loss surgery. She discussed her past eating disorder and her work towards recovery from that. Patient is stable compared to when she has tried weight management program in the past. She has no serious mental health symptoms at this time. Pt is cleared for surgery when ready and communication throughout was strongly encouraged. . Telehealth Telehealth Location of provider rendering services: other Location of patient: address on file Patient Identification confirmed using: Name, : Yes Telehealth method: video Patient verbally consented to treatment: Yes Patient verbally consented to billing insurance company: Yes Patient informed of any privacy concerns related to visit: Yes Minutes spent on Phone/Video with Pt.: 35 Coding Level of Care Code Tele Psytx 30 mins (83737) Diagnoses Mild binge-eating disorder, in full remission F50.81 Morbid obesity E66.01 Time Spent (min) 35
== END 2023-06-12 11:30 | disposition home or self-care (01) ==
LOC: HO.HBST 11:23
PROVIDERS: Visit Provider Counselor Mental Health
DX: F50.81 Binge eating disorder (principal); E66.09 Other obesity due to excess calories; Z68.37 Body mass index [BMI] 37.0-37.9, adult
CPT/HCPCS: 90832

== ENCOUNTER → 2023-06-12 11:23 | Outpatient (BNVA) | payer BC, SELFPAY | PROVIDERS: Visit Provider Counselor Mental Health ==

== ENCOUNTER 2023-06-27 08:19 | Outpatient (AMB) | payer BC, SELFPAY ==
--- NOTE | 2023-06-27 08:22 | MHC.OFFVISWM ---
Intake VS Expanded 06/27/23 08:30 BP 129/69 Blood Pressure Location Rt brachial Blood Pressure Position Sitting Pulse 89 Pulse Source Pulse Oximeter Temp 97.2 F Temperature Source Temporal Artery Scan Pulse Oximetry 97 Oxygen Delivery Method Room Air Height 5 ft 6 in Weight 218 lb 3.2 oz BMI 35.2 Body Fat % 41.5 Body Fat Mass 90.4 Fat Free Mass 127.6 Visceral Fat Rating 8.0 Body Water % 42.1 Body Water Mass 91.8 Muscle Mass/Score 121.2 Basal Metabolic Rate/Score 1,813 Intake Visit Reasons: (OV) PO LSG 05/20/23 Allergies shellfish Allergy (Intermediate, Uncoded 05/13/23 12:51) Itching, hives, rash HPI HPI Comments History of Present Illness Details Pt is now 5 weeks s/p LSG by Dr Lama . 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 No nausea, emesis, reflux or abd pain. Has some pruritus around midline incicison Meal plan per Dr Lama, was hungry at night and plan changed a few days ago. 8am - 4:1 2 scoops UAM - over 2 hours 11 am - Zone perfect bar in 6 pieces 3 pm - same 4:1 shake 6pm- bar 10 pm- half bar - doesn't feel that she needs this bar Exercise - outside walking with dog every morning for 45 minutes, about 150 calories treadmill a home - speed 2.5 - 3.5, incline - unable to chnage incline, 300 calories - over 60 - 90 minutes. 7 days per week [facility] Medical History (Updated 06/26/23 @ 10:03 by Gonzales Leo MD) Diabetes Steatosis, liver Knee pain GERD (gastroesophageal reflux disease) Sleep apnea Hypothyroidism Morbid obesity Surgical History S/P laparoscopic sleeve gastrectomy Hx of wisdom tooth extraction Family History Mother Hypertension Father Hypertension Diabetes Brother Asthma Brother No problems noted. Social History Household Members: Family Housing: Apartment Are you a primary inpatient care manager rn to a significant other at home: No Do you presently have visiting nurse or other home services: No Alcohol intake: current Alcohol intake frequency: holidays/special occasions only Patient Tobacco Use Status: Never used Tobacco Physical Exam Vital Signs: Last Vital Signs Temp 97.2 F 06/27/23 08:30 Pulse 89 06/27/23 08:30 BP 129/69 06/27/23 08:30 Pulse Ox 97 06/27/23 08:30 Oxygen Delivery Method Room Air 06/27/23 08:30 BMI result Body Mass Index 35.2 Const General: cooperative, comfortable and no acute distress GI Inspection: Yes incision (completely healed) Palpation (GI): Soft to palpation, nontender, no guarding, no hernias and no masses Assessment & Plan Assessment & Plan (1) S/P laparoscopic sleeve gastrectomy: Code(s): Z98.84 - Bariatric surgery status Plan: Meal plan - now 2 4:1shakes and 2 bars each day. Exercise - wants to make more efficient. Treadmill- speed 3.0 - 3.5, 300 calories and alternate daily with ST TBP videos. Text me on Jun 30 with calories burned with TBP videos and how new plan is working for her, then weekly weights Next appt 4 weeks with me. Coding Level of Care Code Global (21631) Diagnoses S/P laparoscopic sleeve gastrectomy Z98.84
[2023-06-27 08:30] VITALS: BP 129/69; PULSE 89; TEMP 36.2; O2SAT 97; BMI 35.2
== END 2023-06-27 08:57 | disposition home or self-care (01) ==
PROVIDERS: Visit Provider Physician Assistant
DX: Z98.84 Bariatric surgery status (principal)
CPT/HCPCS: 99024

== ENCOUNTER → 2023-06-27 08:19 | Outpatient (BNVA) | payer BC, SELFPAY | PROVIDERS: Visit Provider Physician Assistant ==

== ENCOUNTER 2023-07-01 14:36 | Outpatient (AMB) | payer BC, SELFPAY ==
--- NOTE | 2023-07-01 14:35 | MHC.WMTHER ---
Intake Intake Visit Reasons: VIDEO F/U Allergies shellfish Allergy (Intermediate, Uncoded 05/13/23 12:51) Itching, hives, rash PFSH Medical History (Updated 06/26/23 @ 10:03 by Gonzales Leo MD) Diabetes Steatosis, liver Knee pain GERD (gastroesophageal reflux disease) Sleep apnea Hypothyroidism Morbid obesity Surgical History S/P laparoscopic sleeve gastrectomy Hx of wisdom tooth extraction Family History Mother Hypertension Father Hypertension Diabetes Brother Asthma Brother No problems noted. Social History Household Members: Family Housing: Apartment Are you a primary children's zoo caretaker to a significant other at home: No Do you presently have visiting nurse or other home services: No Alcohol intake: current Alcohol intake frequency: holidays/special occasions only Patient Tobacco Use Status: Never used Tobacco Behavioral Health Assessment Weight Management Therapy Therapy Notes Details Patient reported doing very well post surgery. Struggling some with cooking food for others, smell of food, not physically hungry but psychologically. She talked about anxious thoughts that often ruminate in her mind causing her distress and anxiety. 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 Pt is looking to have weight loss surgery to help improve her health and quality of life. She reported seeing a therapist for two years and just closed her practice two months ago however did work and process with her the topic of weight loss surgery. Pt reported high stress, some depression, and binge eating symptoms in the past. She reported that she was referred to [facility] intensive outpatient program two years ago after going to [facility] weight management program seeking weight loss surgery. She spent 2-3months at the program online daily and then found a therapist who specialized in BED. Pt stated that she had binge eating symptoms due to stress in her life at that time but also had become a habit since childhood. She started noticing in college when she saw how others were eating. Pt stated that her parents worked all the time as a child and had to fend for herself. Pt has no history of inpatient psychiatric admissions, legal problems, addiction to drugs or alcohol, and no history of self harming behaviors or suicide attempts. Presenting Concerns Referral Source provider Reason for referral weight loss surgery evaluation Precipitating Event obesity Living Situation Current Living Situation Own At risk of losing current housing? No Satisfied with current living situation? Yes Comments Pt lives with her fiance. Offer accepted today on a new home. Food/Weight/Diet Expectations of change weight loss and maintenance History/Relationship with food Pt reported her rel. has improved over the past couple of years. She has sought after treatment for binge eating, she will still over eat but not as intense as it was prior to, she has more awareness. Pt stated that she is more likely to over eat or binge when she is at a alliance party or gathering and there is a variety of different foods and wants to try them all. She reported that she would eat more carb heavy, lots of rice, meat, sweets/desserts. History/Relationship with weight She is currently at her heaviest weight. History/Relationship with dieting WMP at [facility] (260lbs) 2 years ago however did not qualify due to binge eating and also high stress in her life at that time. Binge Eating Do you frequently eat large amounts of food in short periods of time, not feeling physically hungry? Yes Do you feel out of control when you eat a large amount of food in a short period of time? No Do you eat large amounts of food rapidly and typically alone? Yes Night Eating Do you wake up at least once during the night to eat? No If you wake up in the night, do you find that it is necessary to eat something in order to fall back asleep? No Do you have little or no appetite in the morning and feel very hungry in the evening, often overeating between dinner and when you go to bed? No Social History Family history and relationship Pt is first generation here, her family is from [facility] [place]. She is engaged to be and has no children. She was raised by her parents and two older brothers. Her family lives in [place]. 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 none Education Highest grade completed bachelors in psychology and masters in communication Preferred learning style Auditory, Verbal, Written, Learn by doing and Visual Currently enrolled in educational program? No Interested in further educational program? 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 No Meaningful activities reading, going to the park Financial Situation Describe current financial situation Comfortable Financial assistance? None Service Service? No Mental Health and Addiction Treatment Current/Past substance abuse? No Current/Past addictive behavior concerns? No Medical and Physical Health Summary Physical exam in the last year? No Pain Screening Current pain? No Pain in the last few months? Yes Medications Is the patient compliant with medications? Yes Does the patient have Denise Guardian in place? Not applicable Does the patient use complimentary health approaches? No Trauma/Abuse History History of trauma? No Assessment & Plan Assessment & Plan (1) Mild binge-eating disorder, in full remission: Code(s): F50.81 - Binge eating disorder (2) Morbid obesity: Code(s): E66.01 - Morbid (severe) obesity due to excess calories Plan Pt is looking to have weight loss surgery. She discussed her past eating disorder and her work towards recovery from that. Patient is stable compared to when she has tried weight management program in the past. She has no serious mental health symptoms at this time. Pt is cleared for surgery when ready and communication throughout was strongly encouraged. . Telehealth Telehealth Location of provider rendering services: other Location of patient: address on file Patient Identification confirmed using: Name, : Yes Telehealth method: video Patient verbally consented to treatment: Yes Patient verbally consented to billing insurance company: Yes Patient informed of any privacy concerns related to visit: Yes Minutes spent on Phone/Video with Pt.: 35 Coding Level of Care Code Tele Psytx 30 mins (30131) Diagnoses Mild binge-eating disorder, in full remission F50.81 Morbid obesity E66.01 Time Spent (min) 35
== END 2023-07-01 14:37 | disposition home or self-care (01) ==
LOC: HO.HBST 14:36
PROVIDERS: Visit Provider Counselor Mental Health
DX: F50.81 Binge eating disorder (principal); E66.09 Other obesity due to excess calories; Z68.35 Body mass index [BMI] 35.0-35.9, adult
CPT/HCPCS: 90832

== ENCOUNTER → 2023-07-01 14:36 | Outpatient (BNVA) | payer BC, SELFPAY | PROVIDERS: Visit Provider Counselor Mental Health ==

== ENCOUNTER 2023-07-23 14:31 | Outpatient (AMB) | payer BC, SELFPAY ==
--- NOTE | 2023-07-23 14:00 | MHC.OFFVISWM ---
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 No n/v. abd pain or reflux. Does not want to use protein bars any more. TBWL is 63 lbs or 23%. Has follow up with Lydia 07/31, has been seeing her regularly. Meal plan - 8am - Celebrate 4:1 - 2 scoops UAM over 2 hours 11 am - Zone perfect over 3 hours 3pm- 4:1 shake - same way 6 pm- another bar Exercise - alternating treadmill and TBP workouts 6 d/week. -Treadmill- speed 3.0 - 4.5 - incline 0 on her machine 350 calories over 1 hour. TBP videos 30 minutes - following an exercise plan. [facility] Medical History (Updated 06/26/23 @ 10:03 by Gonzales Leo MD) Diabetes Steatosis, liver Knee pain GERD (gastroesophageal reflux disease) Sleep apnea Hypothyroidism Morbid obesity Surgical History S/P laparoscopic sleeve gastrectomy Hx of wisdom tooth extraction Family History Mother Hypertension Father Hypertension Diabetes Brother Asthma Brother No problems noted. Household Members: Family Housing: Apartment Are you a primary customer care representative to a significant other at home: No Do you presently have visiting nurse or other home services: No Alcohol intake: current Alcohol intake frequency: holidays/special occasions only Patient Tobacco Use Status: Never used Tobacco Assessment & Plan Assessment & Plan (1) Obesity: Code(s): E66.9 - Obesity, unspecified Plan: Doing very well post op. Treadmill - 10cal/minute, for 400 calories in 40 minutes - speed 3.0 - 4.5, change by 5 every 5 minutes. Alternate with TBP videos. Wants to decrease bars and start food now. Needs about 90- gram per day Will stop 4:1 shakes and change to either ORgain, Premier or Pure protein powder shakes and take Bariatric vitamins and Caclium/Vit D. 8am - shake 12pm - bar 3pm - shake 6pm - dinner, 1oz scrambled egg or moist soft, chicken or fish. Will text me her weight and how the new meal and exericse plans are working. Next appt with me in 4 weeks. (2) S/P laparoscopic sleeve gastrectomy: Code(s): Z98.84 - Bariatric surgery status Medications: New calcium citrate-vitamin D3 315 mg-5 mcg (200 unit) (Calcium Citrate + D) 1 tab PO BID 60 tabs 11RF Telehealth Telehealth Location of provider rendering services: practice address Location of patient: address on file Patient Identification confirmed using: Name, : Yes Telehealth method: video Patient verbally consented to treatment: Yes Patient verbally consented to billing insurance company: Yes Patient informed of any privacy concerns related to visit: Yes Coding Level of Care Code Global (24435) Diagnoses Obesity E66.9 S/P laparoscopic sleeve gastrectomy Z98.84
[2023-07-23 14:05] VITALS: BMI 33.7
== END 2023-07-23 14:32 | disposition home or self-care (01) ==
LOC: HO.HBS 14:31
PROVIDERS: Visit Provider Physician Assistant
DX: E66.9 Obesity, unspecified (principal); Z68.33 Body mass index [BMI] 33.0-33.9, adult; Z90.3 Acquired absence of stomach [part of]; Z98.84 Bariatric surgery status
CPT/HCPCS: 99024

== ENCOUNTER → 2023-07-23 14:31 | Outpatient (BNVA) | payer BC, SELFPAY | PROVIDERS: Visit Provider Physician Assistant ==

== ENCOUNTER 2023-08-20 15:15 | Outpatient (AMB) | payer BC, SELFPAY ==
--- NOTE | 2023-08-20 12:12 | A.OFFVIS_ITS ---
Intake VS Expanded 08/20/23 14:49 Height 5 ft 6 in Weight 201 lb 6 oz BMI 32.5 Intake Visit Reasons: VIDEO PO LSG 05/20/23 Allergies shellfish Allergy (Intermediate, Uncoded 05/13/23 12:51) Itching, hives, rash Medication List - Last Reconciled 08/20/23 by Lynette Huang PA-C calcium citrate-vitamin D3 315 mg-5 mcg (200 unit) (Calcium Citrate + D) 1 tab PO BID docusate sodium (Colace) 100 mg PO DAILY HPI HPI Comments History of Present Illness Details Pt is now 3 months s/p LSG. 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 No n/v, reflux or abd pain. Her boyfreind is out of work and now home in am, so she is trying to figure out a new routine for exercise, has not been doing much the last 2 weeeks. Also bloated from menses 1 week prior. Is asking about more food and restarting caffeine. 8am - shake Orgain UAM 12pm - bar Zone 3pm - shake Orgain 6pm - dinner, 1oz scrambled egg or mois t soft, chicken or fish. Treadmill - not consistent - averages 2d/ week. With treadmill 250 - 300, speed 3.5 - 4.5, incline - can't TBP videos 300 - 350 justin . COUNTS INCLUDE 234 BEDS AT THE [facility] Medical History (Updated 06/26/23 @ 10:03 by Gonzales Leo MD) Diabetes Steatosis, liver Knee pain GERD (gastroesophageal reflux disease) Sleep apnea Hypothyroidism Morbid obesity Surgical History S/P laparoscopic sleeve gastrectomy Hx of wisdom tooth extraction Family History Mother Hypertension Father Hypertension Diabetes Brother Asthma Brother No problems noted. 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 We discussed a new exercise routine of treadmill on weekends for >400 calories and then TBP 3 d during the week at her lunch time in order to be more consisitent of at least 5 d/ week. Meal plan shake bar shake mealof 2 oz lean protien and 1 oz cooked vegetable now and then in 2 weeks can have raw or cooked vegetables Will continue her appts with Lydia. 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 Next appt with me in 6 weeks, will continue to send me weekly weights. Pt is now 1 week s/p LSG and will stay on protein liquid diet for the next 2 weeks until her next appt. 10am - 12 pm --Celebrate 4:1 2 scoops with 8 oz 2 pm - 4 pm-- Celebrate 4:1 2 scoops with 8 oz 6 pm - pm Exercise - walk 30 minutes daily Next appt with me in 2 weeks. Patient is still obese and is not considered stable at this time. I spent 28 minutes in total speaking with the patient via video conference counseling , reviewing records and charting in patients chart. . Telehealth Telehealth Location of provider rendering services: practice address Location of patient: address on file Patient Identification confirmed using: Name, : Yes Telehealth method: video Patient verbally consented to treatment: Yes Patient verbally consented to billing insurance company: Yes Patient informed of any privacy concerns related to visit: Yes Coding Level of Care Code Tele Est Pt Level 4 (49574) Diagnoses S/P laparoscopic sleeve gastrectomy Z98.84
[2023-08-20 14:49] VITALS: BMI 32.5
== END 2023-08-20 15:20 | disposition home or self-care (01) ==
LOC: HO.HBS 15:15
PROVIDERS: PCP Nurse Practitioner Family; Visit Provider Physician Assistant
DX: E66.9 Obesity, unspecified (principal); Z68.32 Body mass index [BMI] 32.0-32.9, adult; Z90.3 Acquired absence of stomach [part of]; Z98.84 Bariatric surgery status
CPT/HCPCS: 99213

== ENCOUNTER → 2023-08-20 15:15 | Outpatient (BNVA) | payer BC, SELFPAY | PROVIDERS: PCP Nurse Practitioner Family; Visit Provider Physician Assistant ==

== ENCOUNTER 2023-09-03 20:18 | Outpatient (AMB) | payer BC, SELFPAY ==
--- NOTE | 2023-09-22 10:00 | MHC.WMTHER ---
Intake Intake Visit Reasons: Group Therapy Allergies shellfish Allergy (Intermediate, Uncoded 05/13/23 12:51) Itching, hives, rash PFSH Medical History (Updated 06/26/23 @ 10:03 by Gonzales Leo MD) Diabetes Steatosis, liver Knee pain GERD (gastroesophageal reflux disease) Sleep apnea Hypothyroidism Morbid obesity Surgical History S/P laparoscopic sleeve gastrectomy Hx of wisdom tooth extraction Family History Mother Hypertension Father Hypertension Diabetes Brother Asthma Brother No problems noted. 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 She shared appropriately and participated in goal and resolution making activity, Assessment & Plan Assessment & Plan (1) Mild binge-eating disorder, in full remission: Code(s): F50.81 - Binge eating disorder (2) Morbid obesity: Code(s): E66.01 - Morbid (severe) obesity due to excess calories Plan Pt is looking to have weight loss surgery. She discussed her past eating disorder and her work towards recovery from that. Patient is stable compared to when she has tried weight management program in the past. She has no serious mental health symptoms at this time. Pt is cleared for surgery when ready and communication throughout was strongly encouraged. . Coding Level of Care Code Grp Psych (93536) Diagnoses Mild binge-eating disorder, in full remission F50.81 Morbid obesity E66.01 Time Spent (min) 60
== END 2023-09-22 10:00 | disposition home or self-care (01) ==
LOC: HO.HBST 20:18
PROVIDERS: PCP Nurse Practitioner Family; Visit Provider Counselor Mental Health
DX: F50.81 Binge eating disorder (principal); E66.01 Morbid (severe) obesity due to excess calories

== ENCOUNTER → 2023-09-03 20:18 | Outpatient (BNVA) | payer BC, SELFPAY | PROVIDERS: PCP Nurse Practitioner Family; Visit Provider Counselor Mental Health | DX: F50.81 Binge eating disorder (principal); E66.01 Morbid (severe) obesity due to excess calories | CPT/HCPCS: 90853 ==

== ENCOUNTER 2023-09-29 14:30 | Outpatient (AMB) | payer BC, SELFPAY ==
--- NOTE | 2023-09-29 14:32 | MHC.OFFVISWM ---
Intake VS Expanded 09/29/23 14:41 Height 5 ft 6 in Weight 191 lb 4 oz BMI 30.9 Intake Visit Reasons: VIDEO PO LSG 05/20/23 Allergies shellfish Allergy (Intermediate, Uncoded 05/13/23 12:51) Itching, hives, rash Medication List - Last Reconciled 09/29/23 by Lynette Huang PA-C calcium citrate-vitamin D3 315 mg-5 mcg (200 unit) (Calcium Citrate + D) 1 tab PO BID docusate sodium (Colace) 100 mg PO DAILY jffldgsocfgu-xfa-qyck-FA-vit K 45 mg iron- 800 mcg-120 mcg (Bariatric Multivitamins) caps PO HPI HPI Comments History of Present Illness Details Pt is now 4+months s/p LSG. 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 Exercise 5d/week at gym and home - 1800 -2000 justin per week. Meal plan 8am shake - Premeir 12pm bar 3pm shake 6-7pm meal of 2 oz lean protien and 2 oz cooked or raw vegetable Will continue her appts with Lydia. 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 No chnges to Meal plan 10 am shake - Premeir 2 pm shake 6-7pm meal of 2 oz lean protein and 2 oz cooked or raw vegetable Exercise - needs to increase her intensity to burn at lest 10cal/minute for 2,000 justin/week. Post op labs ordered for 6 months with her next appt with me. Patient is still obese and is not considered stable at this time. I spent 26 minutes in total speaking with the patient via video conference counseling , reviewing records and charting in patients chart. . (2) Obesity: Code(s): E66.9 - Obesity, unspecified Plan see above Orders: Orders Insulin Today E66.9 - Obesity, unspecified, Z98.84 - Bariatric surgery status Hemoglobin A1c Today E66.9 - Obesity, unspecified, Z98.84 - Bariatric surgery status Complete Blood Count Auto Diff Today E66.9 - Obesity, unspecified, Z98.84 - Bariatric surgery status Lipid Panel Today E66.9 - Obesity, unspecified, Z98.84 - Bariatric surgery status IRON PROFILE Today E66.9 - Obesity, unspecified, Z98.84 - Bariatric surgery status Vitamin B12 and Folate Today E66.9 - Obesity, unspecified, Z98.84 - Bariatric surgery status Zinc Today E66.9 - Obesity, unspecified, Z98.84 - Bariatric surgery status Vitamin B1 Today E66.9 - Obesity, unspecified, Z98.84 - Bariatric surgery status Vitamin A Today E66.9 - Obesity, unspecified, Z98.84 - Bariatric surgery status TSH reflex Free T4 Today E66.9 - Obesity, unspecified, Z98.84 - Bariatric surgery status Comprehensive Met. Panel Today E66.9 - Obesity, unspecified, Z98.84 - Bariatric surgery status C Reactive Protein Today E66.9 - Obesity, unspecified, Z98.84 - Bariatric surgery status Ferritin Today E66.9 - Obesity, unspecified, Z98.84 - Bariatric surgery status Vitamin D 25-OH Total Today E66.9 - Obesity, unspecified, Z98.84 - Bariatric surgery status Telehealth Telehealth Location of provider rendering services: practice address Location of patient: address on file Patient Identification confirmed using: Name, : Yes Telehealth method: video Patient verbally consented to treatment: Yes Patient verbally consented to billing insurance company: Yes Patient informed of any privacy concerns related to visit: Yes Coding Level of Care Code Tele Est Pt Level 4 (61213) Diagnoses S/P laparoscopic sleeve gastrectomy Z98.84 Obesity E66.9
[2023-09-29 14:41] VITALS: BMI 30.9
== END 2023-09-29 14:56 | disposition home or self-care (01) ==
LOC: HO.HBS 14:35
PROVIDERS: PCP Nurse Practitioner Family; Visit Provider Physician Assistant
DX: E66.9 Obesity, unspecified (principal); Z98.84 Bariatric surgery status
CPT/HCPCS: 99213

== ENCOUNTER → 2023-09-29 14:30 | Outpatient (BNVA) | payer BC, SELFPAY | PROVIDERS: PCP Nurse Practitioner Family; Visit Provider Physician Assistant ==

== ENCOUNTER 2023-11-17 08:28 | Outpatient (REF) | payer BC, SELFPAY ==
[2023-11-17 08:47] LABS: MANUAL DIFF FLAG NO
[2023-11-17 09:13] LABS: Basophils Percent Auto 0.5 % (0-2); Eosinophils Absolute Auto 0.2 X10*3/uL (0.0-0.4); Hemoglobin 13.2 g/dl (12.0-16.0); Imm Gran Abs Auto 0.01 X10*3/uL (0.00-0.03); Imm Gran Pct Auto 0.2 % (0.0-0.4); Lymphocytes Absolute Auto 1.8 X10*3/uL (1.2-4.9); Mean Corpuscular Hemoglobin 28.3 pg (27.0-33.0); Mean Corpuscular Volume 85.7 fL (80.0-98.0); Monocytes Absolute Auto 0.4 X10*3/uL (0.1-1.2); Monocytes Percent Auto 6.3 % (2-11); Neutrophils Absolute Auto 3.2 x10*3/uL (2.0-8.3); Platelet Count 244 X10*3/uL (160-400); Red Blood Count 4.67 X10*6/uL (4.20-5.50); White Blood Count 5.6 X10*3/uL (4.8-10.8)
[2023-11-17 09:23] LABS: Estimated Average Glucose 100 mg/dL; Hemoglobin A1c % 5.1 % (<6.0)
[2023-11-17 10:10] LABS: Insulin 9 uU/mL (2-29)
[2023-11-17 10:18] LABS: Vitamin B12 1053 pg/mL (200-900)
[2023-11-17 12:14] LABS: Alanine Aminotransferase 15 U/L (0-31); Albumin Level 4.2 g/dL (3.5-5.0); Alkaline Phosphatase 71 U/L (39-117); Anion Gap 12 (12-20); Aspartate Amino Transferase 20 U/L (5-31); Bilirubin Total 0.4 mg/dL (0.0-1.0); Blood Urea Nitrogen 16 mg/dL (9-16); C Reactive Protein 1.31 mg/dL (< or = 0.50); Calcium 9.9 mg/dL (8.4-10.2); Carbon Dioxide 29 mmol/L (22-29); Chloride 103 mmol/L (96-108); Cholesterol 193 mg/dL (<200); Estimated Glomerular Filt Rate > 60; Glucose Random 76 mg/dL (60-115); HDL Cholesterol 44 mg/dL (>40); Iron 68 mcg/dL (30-160); LDL Cholesterol Calculated 137 mg/dL (<100); Percent Iron Saturation 27 % (15-50); Potassium 3.9 mmol/L (3.3-5.1); Sodium 140 mmol/L (135-145); Total Iron Binding Capacity 251 mcg/dL (228-428); Total Protein 8.3 g/dL (6.5-8.0); Triglycerides 63 mg/dL (<150); Unsaturated Iron Binding 183 ug/dL
[2023-11-17 12:17] LABS: Ferritin 274 ng/mL (10-122); TSH reflex Free T4 2.69 uIU/mL (0.32-4.0); Vitamin D 25-OH Total 53.3 ng/mL (>30)
[2023-11-20 00:18] LABS: Zinc 91 mcg/dL (60-130)
[2023-11-21 06:39] LABS: Vitamin A 33 mcg/dL (38-98)
[2023-11-21 13:43] LABS: Vitamin B1 15 nmol/L (8-30)
== END 2023-11-17 08:29 | disposition home or self-care (01) ==
LOC: HO.LAB 08:28
PROVIDERS: PCP Nurse Practitioner Family; Visit Provider Physician Assistant
DX: E66.9 Obesity, unspecified (principal); Z98.84 Bariatric surgery status
CPT/HCPCS: 36415; 80053; 80061; 82306; 82607; 82728; 82746; 83036; 83525; 83540; 84425; 84443; 84590; 84630; 85025; 86140

== ENCOUNTER 2023-11-24 11:00 | Outpatient (AMB) | payer BC, SELFPAY ==
--- NOTE | 2023-11-24 11:01 | A.OFFVIS_ITS ---
Intake VS Expanded 11/24/23 11:06 Height 5 ft 6 in Weight 181 lb 8 oz BMI 29.3 Intake Visit Reasons: VIDEO PO LSG 05/20/23 Allergies shellfish Allergy (Intermediate, Uncoded 05/13/23 12:51) Itching, hives, rash Medication List - Last Reconciled 11/24/23 by Lynette Huang PA-C calcium citrate-vitamin D3 315 mg-5 mcg (200 unit) (Calcium Citrate + D) 1 tab PO BID laqisdkiacpb-ttq-htvs-FA-vit K 45 mg iron- 800 mcg-120 mcg (Bariatric Multivitamins) caps PO vitamin A palmitate 3,000 mcg PO DAILY HPI HPI Comments History of Present Illness Details 28 yo woman now 6 months s/p LSG. 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 Started [employer] [place] school in September. Now wakes at 6 am - bed at 10:30 pm Meal plan - shake at 10 am and 2pm, then 6pm - 3 oz protein and 2 oz vegetable. Exercise - tries to burn 2k per week. 350 justin over 45 minutes. Post op complications: none FAIZA: resolved DM: resolved HTN: never Hyperlipidemia: resolved GERD: 0, Satisfaction with present condition - satisfied [facility] Medical History (Updated 06/26/23 @ 10:03 by Gonzales Leo MD) Diabetes Steatosis, liver Knee pain GERD (gastroesophageal reflux disease) Sleep apnea Hypothyroidism Morbid obesity Surgical History S/P laparoscopic sleeve gastrectomy Hx of wisdom tooth extraction Family History Mother Hypertension Father Hypertension Diabetes Brother Asthma Brother No problems noted. 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 9am - shake - change to 20 - 25 gram shake 12 pm - shake - 25 gram 3pm - 1 hb egg or reduced fat cheese stick , half protein bar 7pm - dinner 3 oz and 2 oz Exercise- change things up to burn 500 justin 4d/week - spin class on bike etc... 10 justin/minute Labs reviewed and explained. Next appt 3 months with PA, will call with any questions. Patient is not considered stable at this time. I spent minutes in total speaking with the patient via video conference counseling , reviewing records and charting in patients chart. . (2) Obesity: Code(s): E66.9 - Obesity, unspecified Plan: see above Medications: Refilled vitamin A palmitate 3,000 mcg PO DAILY 90 caps 3RF Telehealth Telehealth Location of provider rendering services: practice address Location of patient: address on file Patient Identification confirmed using: Name, : Yes Telehealth method: video Patient verbally consented to treatment: Yes Patient verbally consented to billing insurance company: Yes Patient informed of any privacy concerns related to visit: Yes Coding Level of Care Code Tele Est Pt Level 4 (64918) Diagnoses S/P laparoscopic sleeve gastrectomy Z98.84 Obesity E66.9
[2023-11-24 11:06] VITALS: BMI 29.3
== END 2023-11-24 11:37 | disposition home or self-care (01) ==
LOC: HO.HBS 11:22
PROVIDERS: PCP Nurse Practitioner Family; Visit Provider Physician Assistant
DX: E66.9 Obesity, unspecified (principal); Z68.29 Body mass index [BMI] 29.0-29.9, adult; Z90.3 Acquired absence of stomach [part of]; Z98.84 Bariatric surgery status
CPT/HCPCS: 99214

== ENCOUNTER → 2023-11-24 11:00 | Outpatient (BNVA) | payer BC, SELFPAY | PROVIDERS: PCP Nurse Practitioner Family; Visit Provider Physician Assistant ==

== ENCOUNTER 2024-02-06 08:58 | Outpatient (AMB) | payer BC, SELFPAY ==
[2024-02-06 09:05] VITALS: BP 124/76; PULSE 69; RESP 14; TEMP 36.6; O2SAT 99; BMI 28.6
--- NOTE | 2024-02-06 09:05 | A.OFFPC_ITS ---
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 Required: No Accompanied by: Self / Same As Patient Allergies mushrooms Allergy (Intermediate, Uncoded 02/06/24 09:17) Facial Swelling shellfish Allergy (Intermediate, Uncoded 02/06/24 09:17) Itching, hives, rash Medication List - Last Reconciled 02/06/24 by Gautam Kurtz CNP calcium citrate-vitamin D3 315 mg-5 mcg (200 unit) (Calcium Citrate + D) 1 tab PO BID dttskiojziga-mhf-wqgr-FA-vit K 45 mg iron- 800 mcg-120 mcg (Bariatric Multivitamins) caps PO vitamin A palmitate 3,000 mcg PO DAILY Tobacco use date assessed: 02/06/24 Dental Screening Dental Screen Date: 02/06/24 Did you have a dental visit in the last 12 months?: Yes Did you have a dental problem in the last 6 months where you did not have access to dental care?: No Was dental information given to patient?: Patient has dentist HPI HPI Comments History of Present Illness Details New patient Prior PCP:?[facility], Dr. Jennifer Denny Last office visit/CPE: About 2 years Acute issue(s): Trouble focusing and brain fog lately. 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 She endorses fatigue and poor night sleep with frequent awakenings. She states that these symptoms are limiting her work performance and therefore wants to be treated. She is is grad school [employer]. Her partner lost his job and she finds is challenging to take care of all the bills. She notes that she runs everyday in preparation for half a marathon race She moved from [place] to [place] in April, She had blood work done in October 2023; unremarkable findings except for elevated ferritin, 274 (equivocal) and LDL 137 She took metformin for 2 months and was instructed to stop taking the medication after she had laparoscopic sleeve gastrectomy. Last A1c in October 2023 was 5.1% She notes that she snores. She had sleep study done in 2019 and was diagnosed with sleep apnea. She slept with CPAP machine for 3 months but it was not helping so she stopped using it for sleep. She does not want a new sleep study and would not resume using CPAP PMHx: NIDDM2, GERD, hepatic steatosis, hypothyroidism, sleep apnea-no CPAP, morbid obesity, vitamin-D deficiency, vitamin-A deficiency SurgHx: s/p laparoscopic sleeve gastrectomy 9 months ago. Currently [place] [facility] [place] FHx: Mom: HTN, ROSIO. Dad: HTN, asthma SocHx: Does not smoke cigarettes. Drinks alcohol occasionally. No recreational drugs. She notes her last pap smear test was over 3 years ago: normal She notes that she is sexually active, in a monogamous relationship, and has no concerns for STD [facility] Medical History Diabetes Steatosis, liver Knee pain GERD (gastroesophageal reflux disease) Sleep apnea Hypothyroidism Morbid obesity Surgical History S/P laparoscopic sleeve gastrectomy Hx of wisdom tooth extraction Family History Mother Hypertension Substance abuse Father Hypertension Diabetes Brother Asthma Brother No problems noted. 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 1. Little interest or pleasure in doing things: not at all 2. Feeling down, depressed, or hopeless: not at all 3. Trouble falling or staying asleep, or sleeping too much: nearly every day 4. Feeling tired or having little energy: not at all 5. Poor appetite or overeating: not at all 6. Feeling bad about yourself - or that you are a failure or have let yourself or your family down: several days 7. Trouble concentrating on things, such as reading the newspaper or watching television: nearly every day 8. Moving or speaking so slowly that other people could have noticed. Or the opposite - being so fidgety or restless that you have been moving around a lot more than usual: several days 9. Thoughts that you would be better off or of hurting yourself in some way: not at all Total score: 8 Depression Screening Interpretation: Positive Depression Screening Follow-up: New Medication prescribed Depression Screening Done: Yes 59289 - PHQ-9 Billing: Yes Source: Developed by Drs. Martinez Mckenzie, Tia Choudhury, Gaudencio Sheehan and colleagues, with an educational ulysses from [employer]. Thrive Questionnaire Date Thrive assessed: 02/06/24 I am a: Patient What is your living situation today?: I have a steady place to live Within the past 12 months, did the food you bought not last and you didn't have the money to get more?: Never true Within the past 12 months, did you worry whether your food would run out before you got money to buy more?: Sometimes True Do you have trouble paying for medicines?: No Do you have trouble getting transportation to medical appointments?: No Do you have trouble paying your heating and electricity bill?: Yes Do you have trouble taking care of your child, family member or friend?: No Do you have trouble with day-to-day activities such as bathing, preparing meals, shopping, managing finances, etc.?: No Are you currently unemployed and looking for a job?: No Are you interested in more education?: No Please select the resources that you would like help with: Utilities Currently or been in a relationship where the following occur: no concerns reported THRIVE Score: 2 AUDIT C Alcohol Use Questionnaire (AUDIT-C) 1. How often do you have a drink containing alcohol?: Monthly or less 2. How many drinks containing alcohol do you have on a typical day when you are drinking?: 1 or 2 3. How often do you have six or more drinks on one occasion?: Never Total Score: 1 MAURI-7 AMB Questionnaire MAURI-7 Date MAURI - 7 assessed: 02/06/24 Feeling nervous, anxious, or on edge: 1 = Several days Not being able to stop or control worryin = Not at all Worrying too much about different things: 1 = Several days Trouble relaxin = Not at all Being so restless that it is hard to sit still: 1 = Several days Becoming easily annoyed or irritable: 0 = Not at all Feeling afraid as if something awful might happen: 0 = Not at all Total MAURI-7 score (0-4 normal; 5-9 mild; 10-14 moderate; 15-21 severe): 3 Source: Developed by Drs. Martinez Mckenzie, Tia Choudhury, Gaudencio Sheehan and colleagues, with an educational ulysses from [employer]. MAURI-7 Assessment Billing MAURI-7 Assessment Tool: MAURI-7 Assessment 05204 Review of Systems Const Details: Denies chills, Denies fatigue, Denies fever(s), Denies headache(s) and Denies weakness HEENT Denies change in vision, Denies dizziness, Denies headache(s), Denies hearing loss, Denies nasal congestion, Denies sinus pain, Denies sinus pressure and Denies sore throat Card Denies chest pain, Denies lightheadedness, Denies dyspnea and Denies other (palpitations) Resp Denies cough, Denies dyspnea and Denies wheezing GI Denies abdominal pain, Denies melena, Denies hematochezia, Denies change in bowel habits, Denies dyspepsia and Denies nausea Denies hematuria and Denies dysuria Musc Denies abnormal gait, Denies myalgias, Denies arthralgias, Denies numbness and Denies tingling Skin/Breast Denies rash, Denies unusual bruising and Denies wounds Neuro Denies abnormal gait, Denies dizziness, Denies headache(s), Denies memory loss, Denies numbness, Denies Sensory deficit (Neuro), Denies tingling and Denies weakness Psych Denies anxiety, Denies depression and Denies memory loss Endo Denies cold intolerance, Denies fatigue, Denies heat intolerance, Denies polydipsia and Denies polyuria Britton/Lymph Denies easy bleeding and Denies easy bruising Aller/Immun Denies wheezing Physical exam (Primary Care) Vital Signs: Last Vital Signs Temp 97.8 F 02/06/24 09:05 Pulse 69 02/06/24 09:05 Resp 14 02/06/24 09:05 BP 124/76 02/06/24 09:05 Pulse Ox 99 02/06/24 09:05 Oxygen Delivery Method Room Air 02/06/24 09:05 BMI result Body Mass Index 28.6 Tobacco/Smoking Status: Tobacco use Status Tobacco use date assessed 02/06/24 02/06/24 09:13 Patient Tobacco Use Status Never used Tobacco 02/06/24 09:13 e-Cigarette/Vaping Use Never Used 02/06/24 09:13 PHQ-9: PHQ-9 Score PHQ-9: Total score 8 02/06/24 09:16 Depression Screening Interpretation: Positive Depression Screening Follow-up: New Medication prescribed Thrive Assessment: Date of Thrive Assessment Date Thrive assessed 02/06/24 02/06/24 09:16 Currently or been in a relationship where the following occur: no concerns reported Const Other: General: no acute distress, well developed, alert and awake Nutritional Appearance: well nourished Orientation/consciousness: patient oriented x3 HENMT Head: Yes normocephalic and Yes atraumatic Ears: hearing grossly normal bilaterally and TM's normal bilaterally General nose exam: Normal external nose present and Normal nares present Mouth: Normal oral and palatal mucosa present and moist mucous membranes Teeth and gingiva: dentition normal Throat: Yes oropharynx normal Eyes Pupils: Equal, round and reactive pupils present and Pupil accommodation reflex normal EOM: EOMs intact bilaterally Neck Neck: Yes normal visual inspection, Yes no lymphadenopathy and Yes trachea midline Thyroid: Thyroid normal Carotids: no bruits Lymphatic: no lymphadenopathy noted Chest Chest palpation & inspection: normal inspection of the chest Resp Effort & Inspection: normal respiratory effort Auscultation: clear to auscultation bilaterally Cardio Rate: regular rate Rhythm: regular rhythm Heart sounds: S1 normal heart sound present, S2 normal heart sound present, no gallops, no murmurs and no rubs Bruits: no abdominal aortic bruits and no carotid bruits GI Palpation (GI): No Abdominal aortic bruit present, Soft to palpation, nontender, No hepatosplenomegaly present and No Rebound tenderness present Auscultation: normal bowel sounds General: Yes no CVA tenderness Back/Spine/Pelvis Back: no CVA tenderness Cervical Spine: cervical ROM normal and No Cervical spine tenderness Thoracic/Lumbar Spine: thoraco-lumbar ROM normal, No pain with thoraco-lumbar ROM, No thoracic spinal tenderness and No lumbar spinal tenderness Skin General: warm and dry. Normal skin color. Normal skin turgor Lesions: no lesions Rashes: no rashes Trauma: no lacerations or abrasions Wounds: no wounds Nails: normal Neuro General: patient oriented x3, gait normal and CN's II-XI intact bilaterally Cranial nerves: Yes Equal, round and reactive pupils present Cognition (Neuro): normal cognition Gait exam (Neuro): Normal gait present Motor exam (neuro): 5/5 motor strength present throughout Sensory Exam: No Sensory deficit (Neuro) Deep tendon reflexes (DTR's): Right patellar reflex intensity grade: 2+ and Left patellar reflex intensity grade: 2+ Extrem General: Yes normal to inspection, No edema and No calf tenderness Psych Appearance: grossly normal Affect: normal affect Attitude: cooperative Thought process: Normal thought process present Assessment and Plan Assessment & Plan (1) Normal physical examination, routine: Code(s): Z00.00 - Encounter for general adult medical examination without abnormal findings Plan: No significant physical restrictions or limitations noted Continue current treatment regimen Healthy diet and routine exercise encouraged Follow-up in 2 weeks for depression or sooner with worsening or new symptoms Verbalized understanding and agreed with treatment plan (2) Depression: Code(s): F32.A - Depression, unspecified Plan: Reports trouble focusing, brain fog, fatigue, and poor night sleep with frequent awakenings. These symptoms her limiting her work performance. 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 Her partner lost his job and she finds it challenging to take care of all the bills. PHQ-9 score reveals moderate depression. MAURI-7 score is normal Sertraline 50 mg daily ordered. Advised to take as prescribed. Instructed on the risks, benefits, and potential adverse reactions of the medications Follow-up in 2 weeks or sooner with worsening or new symptoms Verbalized understanding and agreed with treatment (3) Non-insulin dependent type 2 diabetes mellitus: Code(s): E11.9 - Type 2 diabetes mellitus without complications Plan: Took metformin for 2 months and was instructed to stop taking the medication after she had laparoscopic sleeve gastrectomy. Last A1c in October 2023 was 5.1% Healthy diet and routine exercise encouraged Will continue to monitor Verbalized understanding and agreed with the plan (4) Hypothyroidism: Code(s): E03.9 - Hypothyroidism, unspecified Plan: Not on medication Recent TSH is normal Will continue to monitor (5) Morbid obesity: Code(s): E66.01 - Morbid (severe) obesity due to excess calories Plan: She had laparoscopic sleeve gastrectomy 9 months ago She currently weighs 177 lb, BMI is 28.6 Healthy diet and routine exercise encouraged Continue to follow up with bariatic surgery as planed Verbalized understanding and agreed with the plan (6) Steatosis, liver: Code(s): K76.0 - Fatty (change of) liver, not elsewhere classified Plan: No acute symptoms Recent liver panel is normal Healthy diet and routine exercise encouraged Verbalized understanding and agreed with the plan (7) Vitamin D deficiency: Code(s): E55.9 - Vitamin D deficiency, unspecified Plan: Recent vitamin-D level is normal Continue to take calcium citrate + D as prescribed (8) Vitamin A deficiency: Code(s): E50.9 - Vitamin A deficiency, unspecified Plan: Recent vitamin-D level slightly low, 33 Take vitamin A palmitate and multivitamin as prescribed Verbalized understanding and agreed with the plan (9) GERD (gastroesophageal reflux disease): Code(s): K21.9 - Gastro-esophageal reflux disease without esophagitis Plan: No acute symptoms (10) Sleep apnea: Comment: no CPAP used Code(s): G47.30 - Sleep apnea, unspecified Plan: Reports sleep disturbances with frequent nighttime awakenings. She also snores. She used CPAP to sleep but stopped using it because it was not effective. 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 Orders: Orders UA CC w/rflx Micro + Cult Today Z00.00 - Encounter for general adult medical examination without abnormal findings Referrals [facility] Referral Z12.4 - Encounter for screening for malignant neoplasm of cervix Medications: New sertraline 50 mg PO DAILY 30 days 30 tabs 3RF Coding Level of Care Code New Pt Level 4 (54324) New Pt Prev Care 18-39yr(00608 Diagnoses Normal physical examination, routine Z00.00 Depression F32.A Non-insulin dependent type 2 diabetes mellitus E11.9 Hypothyroidism E03.9 Morbid obesity E66.01 Steatosis, liver K76.0 Vitamin D deficiency E55.9 Vitamin A deficiency E50.9 GERD (gastroesophageal reflux disease) K21.9 Sleep apnea G47.30 Pap smear for cervical cancer screening Z12.4 Additional Codes MAURI-7 Assessment Billing - MAURI-7 Assessment Tool: MAURI-7 Assessment 46447 ([id number])
== END 2024-02-06 09:56 | disposition home or self-care (01) ==
PROVIDERS: PCP Nurse Practitioner Family; Visit Provider Nurse Practitioner Family
DX: Z00.00 Encounter for general adult medical examination without abnormal findings (principal); F32.A Depression, unspecified; E11.9 Type 2 diabetes mellitus without complications; E66.01 Morbid (severe) obesity due to excess calories; Z68.28 Body mass index [BMI] 28.0-28.9, adult; E03.9 Hypothyroidism, unspecified; G47.30 Sleep apnea, unspecified; K76.0 Fatty (change of) liver, not elsewhere classified; E55.9 Vitamin D deficiency, unspecified; E50.9 Vitamin A deficiency, unspecified; K21.9 Gastro-esophageal reflux disease without esophagitis
CPT/HCPCS: 96127; 99203; 99385

== ENCOUNTER 2024-02-06 09:59 | Outpatient (REF) | payer BC, SELFPAY ==
[2024-02-06 11:22] LABS: Appearance Urine Clear; Color Urine Yellow; Glucose Urine UA Negative (Negative); Leukocyte Esterase Urine Small (1+) (Negative); Nitrite Urine Negative (Negative); PH 6.5 (5.0-9.0); Specific Gravity - Urine 1.025 (1.005-1.025); UMIC TRIGGER UACC YES; Urine Blood Negative (Negative); Urine Ketones Negative (Negative); Urine Protein Negative (Neg-Trace)
[2024-02-06 11:27] LABS: Bacteria Urine Trace (None Seen); Hyaline Casts Urine 0-2 /LPF (0-2); RBC Urine 0-2 /HPF (0-2); UACC Culture Trigger YES
== END 2024-02-06 10:00 | disposition home or self-care (01) ==
LOC: HO.WFDLDS 09:59
PROVIDERS: Visit Provider Nurse Practitioner Family
DX: R82.90 Unspecified abnormal findings in urine (principal)
CPT/HCPCS: 81001; 87086

== ENCOUNTER 2024-02-11 15:30 | Outpatient (AMB) | payer BC, SELFPAY ==
--- NOTE | 2024-02-11 15:33 | A.OFFVIS_ITS ---
VS Expanded 02/11/24 15:36 Height 5 ft 6 in Weight 176 lb BMI 28.4 Intake Visit Reasons: (TELEPHONE) PO LSG 11/02/20 Allergies mushrooms Allergy (Intermediate, Uncoded 02/06/24 09:17) Facial Swelling shellfish Allergy (Intermediate, Uncoded 02/06/24 09:17) Itching, hives, rash Medication List - Last Reconciled 02/11/24 by DOROTA Rao calcium citrate-vitamin D3 315 mg-5 mcg (200 unit) (Calcium Citrate + D) 1 tab PO BID chqoxxewipzs-ajh-scqr-FA-vit K 45 mg iron- 800 mcg-120 mcg (Bariatric Multivitamins) caps PO sertraline 50 mg PO DAILY 30 days vitamin A palmitate 3,000 mcg PO DAILY HPI Comments Details: This?is a?28?yo female who is s/p LSG 05/20/2023. Presents for 9 month post op visit. Weight at last visit on 11/24/2023 was 181.5 pounds with a BMI of 29.3, w eight today is 176 pounds, representing a 5.5 pound weight loss with a BMI today of 28.4.? No complaints of nausea, emesis, abdominal pain or reflux, or constipation. Present meal plan includes: 9am - Premier shake 12 pm - half shake 3pm - 1 hb egg or reduced fat cheese stick, half protein bar 7pm - dinner 3 oz and 2 oz Exercise- started running, 2-3 miles per day 5x week PFSH Medical History Diabetes Steatosis, liver Knee pain GERD (gastroesophageal reflux disease) Sleep apnea Hypothyroidism Morbid obesity Surgical History S/P laparoscopic sleeve gastrectomy Hx of wisdom tooth extraction Family History Mother Hypertension Substance abuse Father Hypertension Diabetes Brother Asthma Brother No problems noted. 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 [employer] Cognitive needs: No Hearing needs: No Vision needs: Yes Telehealth Telehealth Telehealth Platform: Telephone Location of provider rendering services: practice address Location of patient: address on file Patient Identification confirmed using: Name, : Yes Telehealth method: voice only Patient verbally consented to treatment: Yes Patient verbally consented to billing insurance company: Yes Patient informed of any privacy concerns related to visit: Yes Minutes spent on Phone/Video with Pt.: 15 Assessment & Plan Assessment & Plan (1) S/P laparoscopic sleeve gastrectomy: Code(s): Z98.84 - Bariatric surgery status Category: Surgical (2) Overweight: Code(s): E66.3 - Overweight Category: Medical Plan Pt aware that plan allowing for best results weight loss would incorporate shakes, bars, and one meal. She wants to try one shake in AM and two meals 6f/6f each now that she has increased her activity with running. She asks about gels needed for distance running and we discussed that her running currently would not require additional fuel at this point. But she will monitor energy levels, fatigue etc as she increases distance. RTC 3 months for annual, labs at that time. Texted pt my # and encouraged her to reach out between appts with any questions. Patient is overweight and is not considered stable at this time. I spent a total of 30 minutes reviewing/updating records, examining the patient and counseling the patient on weight management as detailed above.
[2024-02-11 15:36] VITALS: BMI 28.4
== END 2024-02-11 15:56 | disposition home or self-care (01) ==
LOC: HO.HBS 15:55
PROVIDERS: PCP Nurse Practitioner Family; Visit Provider Physician Assistant Surgical
DX: E66.3 Overweight (principal); Z68.28 Body mass index [BMI] 28.0-28.9, adult; Z90.3 Acquired absence of stomach [part of]; Z98.84 Bariatric surgery status
CPT/HCPCS: 99442

== ENCOUNTER → 2024-02-11 15:30 | Outpatient (BNVA) | payer BC, SELFPAY | PROVIDERS: PCP Nurse Practitioner Family; Visit Provider Physician Assistant Surgical ==

== ENCOUNTER 2024-02-23 08:58 | Outpatient (AMB) | payer BC, SELFPAY ==
[2024-02-23 09:02] VITALS: BP 104/66; PULSE 68; RESP 14; TEMP 36.5; O2SAT 99; BMI 29.2
--- NOTE | 2024-02-23 09:02 | MHC.PC.OV ---
Vital Signs 02/23/24 09:02 Height 5 ft 6 in Weight 181 lb 2 oz BMI 29.2 BP 104/66 Blood Pressure Location Rt brachial Position Sitting Respiration 14 Pulse 68 Pulse Source Pulse Oximeter Temp 97.7 F Temp Source Temporal Artery Scan Pulse Oximetry (%) 99 Oxygen Delivery Method Room Air Intake Visit Reasons: 2 wks depression Office Administration Instructor Required: No Accompanied by: Self / Same As Patient Allergies mushrooms Allergy (Intermediate, Uncoded 02/23/24 09:12) Facial Swelling shellfish Allergy (Intermediate, Uncoded 02/23/24 09:12) Itching, hives, rash Medication List - Last Reconciled 02/23/24 by Gautam Kurtz CNP calcium citrate-vitamin D3 315 mg-5 mcg (200 unit) (Calcium Citrate + D) 1 tab PO BID [id number] K 45 mg iron- 800 mcg-120 mcg (Bariatric Multivitamins) caps PO sertraline 50 mg PO DAILY 30 days vitamin A palmitate 3,000 mcg PO DAILY Tobacco use date assessed: 02/06/24 Dental Screening Dental Screen Date: 02/06/24 HPI HPI Comments History of Present Illness Details 28-year-old female presents for depression follow-up She admits to taking sertraline as prescribed without adverse reactions She reports improved depression symptoms. She notes that she has been sleeping throughout the night. Her energy has increased and appetite has improved She denies SI or HI PFSH Medical History Diabetes Steatosis, liver Knee pain GERD (gastroesophageal reflux disease) Sleep apnea Hypothyroidism Morbid obesity Surgical History S/P laparoscopic sleeve gastrectomy Hx of wisdom tooth extraction Family History Mother Hypertension Substance abuse Father Hypertension Diabetes Brother Asthma Brother No problems noted. 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 1. Little interest or pleasure in doing things: several days 2. Feeling down, depressed, or hopeless: several days 3. Trouble falling or staying asleep, or sleeping too much: more than half the days 4. Feeling tired or having little energy: several days 5. Poor appetite or overeating: more than half the days 6. Feeling bad about yourself - or that you are a failure or have let yourself or your family down: several days 7. Trouble concentrating on things, such as reading the newspaper or watching television: more than half the days 8. Moving or speaking so slowly that other people could have noticed. Or the opposite - being so fidgety or restless that you have been moving around a lot more than usual: not at all 9. Thoughts that you would be better off or of hurting yourself in some way: not at all Total score: 10 Depression Screening Interpretation: Positive Depression Screening Follow-up: Existing condition and In treatment Depression Screening Done: Yes 60522 - PHQ-9 Billing: Yes Source: Developed by Drs. Martinez Mckenzie, Tia Choudhury, Gaudencio Sheehan and colleagues, with an educational ulysses from [employer]. Thrive Questionnaire Date Thrive assessed: 02/06/24 MAURI-7 AMB Questionnaire MAURI-7 Date MAURI - 7 assessed: 02/06/24 Feeling nervous, anxious, or on edge: 1 = Several days Not being able to stop or control worryin = More than half the days Worrying too much about different things: 2 = More than half the days Trouble relaxin = Several days Being so restless that it is hard to sit still: 1 = Several days Becoming easily annoyed or irritable: 0 = Not at all Feeling afraid as if something awful might happen: 0 = Not at all Total MAURI-7 score (0-4 normal; 5-9 mild; 10-14 moderate; 15-21 severe): 7 Source: Developed by Drs. Martinez Mckenzie, Tia Choudhury, Gaudencio Sheehan and colleagues, with an educational ulysses from [employer] MAURI-7 Assessment Billing MAURI-7 Assessment Tool: MAURI-7 Assessment 61804 Review of Systems Const Details: Const Denies chills, Denies fatigue, Denies fever(s), Denies headache(s) and Denies weakness ENT Denies dizziness and Denies headache(s) Card Denies chest pain, Denies lightheadedness, Denies dyspnea and Denies other (Palpitations) Resp Denies cough, Denies dyspnea, Denies wheezing and Denies other ( shortness of breath) GI Denies abdominal pain, Denies melena, Denies hematochezia, Denies change in bowel habits, Denies dyspepsia and Denies nausea Denies hematuria and Denies dysuria Musc Denies abnormal gait, Denies myalgias, Denies arthralgias, Denies numbness and Denies tingling Skin/Breast Denies rash, Denies unusual bruising and Denies wounds Neuro Denies abnormal gait, Denies dizziness, Denies headache(s), Denies memory loss, Denies numbness, Denies Sensory deficit (Neuro), Denies tingling and Denies weakness Psych Reports anxiety, Reports depression, Denies memory loss Endo Denies cold intolerance, Denies fatigue, Denies heat intolerance, Denies polydipsia and Denies polyuria Aller/Immun Denies wheezing Physical exam (Primary Care) Vital Signs: Last Vital Signs Temp 97.7 F 02/23/24 09:02 Pulse 68 02/23/24 09:02 Resp 14 02/23/24 09:02 BP 104/66 02/23/24 09:02 Pulse Ox 99 02/23/24 09:02 Oxygen Delivery Method Room Air 02/23/24 09:02 BMI result Body Mass Index 29.2 Tobacco/Smoking Status: Tobacco use Status Tobacco use date assessed 02/06/24 02/23/24 09:10 Patient Tobacco Use Status Never used Tobacco 02/23/24 09:10 e-Cigarette/Vaping Use Never Used 02/23/24 09:10 PHQ-9: PHQ-9 Score PHQ-9: Total score 02/23/24 09:10 Depression Screening Interpretation: Positive Depression Screening Follow-up: Existing condition and In treatment Thrive Assessment: Date of Thrive Assessment Date Thrive assessed 02/06/24 02/23/24 09:10 Const Other: General: no acute distress and well developed Nutritional Appearance: well nourished Orientation/consciousness: patient oriented x3 HENMT Head: Yes normocephalic and Yes atraumatic Eyes General: appearance normal, both eyes and all related structures Pupils: Equal, round and reactive pupils present EOM: EOMs intact bilaterally Resp Effort & Inspection: normal respiratory effort Auscultation: clear to auscultation bilaterally Cardio Rate: regular rate Rhythm: regular rhythm Heart sounds: S1 normal heart sound present, S2 normal heart sound present, no gallops, no murmurs and no rubs GI Palpation (GI): No Abdominal aortic bruit present, Soft to palpation, nontender, No hepatosplenomegaly present and No Rebound tenderness present Auscultation: normal bowel sounds General: Yes no CVA tenderness Back/Spine/Pelvis Back: no CVA tenderness Cervical Spine: cervical ROM normal and No Cervical spine tenderness Thoracic/Lumbar Spine: thoraco-lumbar ROM normal, No pain with thoraco-lumbar ROM, No thoracic spinal tenderness and No lumbar spinal tenderness Extrem General: Yes normal to inspection, No edema and No calf tenderness Skin General: warm and dry. Normal skin color. Normal skin turgor Neuro General: patient oriented x3, gait normal and no focal neuro deficit Cranial nerves: Yes Equal, round and reactive pupils present Cognition (Neuro): normal cognition Gait exam (Neuro): Normal gait present Sensory Exam: No Sensory deficit (Neuro) Psych Appearance: grossly normal Affect: normal affect Attitude: cooperative Thought process: Normal thought process present Assessment and Plan Assessment & Plan (1) Depression: Code(s): F32.A - Depression, unspecified Plan: Reports improved depression symptoms on current treatment regimen PHQ-9 and MAURI-7 scores revealed moderate depression and mild anxiety respectively Continue to take sertraline 50 mg daily Routine exercise encouraged Follow-up in 4 weeks or sooner with worsening or new symptoms Verbalized understanding and agreed with the treatment plan Coding Level of Care Code Tele Est Pt Level 3 (21352) Diagnoses Depression F32.A Additional Codes MAURI-7 Assessment Billing - MAURI-7 Assessment Tool: MAURI-7 Assessment 62587 ([id number])
== END 2024-02-23 09:27 | disposition home or self-care (01) ==
PROVIDERS: PCP Nurse Practitioner Family; Visit Provider Nurse Practitioner Family
DX: F32.A Depression, unspecified (principal)
CPT/HCPCS: 99213

== ENCOUNTER 2024-03-22 11:22 | Outpatient (AMB) | payer BC, SELFPAY ==
--- NOTE | 2024-03-22 11:40 | A.OFFPC_ITS ---
Vital Signs 03/22/24 11:43 Height 5 ft 6 in Weight 185 lb 2 oz BMI 29.9 BP 114/78 Blood Pressure Location Rt brachial Position Sitting Respiration 16 Pulse 65 Pulse Source Pulse Oximeter Temp 98.3 F Temp Source Oral Pulse Oximetry (%) 99 Oxygen Delivery Method Room Air Intake Visit Reasons: 4 wks depression Intake Note: patient here to follow up on depression. Process Controls Technician Required: No Is last menstrual period known: Yes Last menstrual period: 03/02/24 Post menopausal: No Patient : No Allergies mushrooms Allergy (Intermediate, Uncoded 03/22/24 12:03) Facial Swelling shellfish Allergy (Intermediate, Uncoded 03/22/24 12:03) Itching, hives, rash Medication List - Last Reconciled 03/22/24 by Gautam Kurtz CNP calcium citrate-vitamin D3 315 mg-5 mcg (200 unit) (Calcium Citrate + D) 1 tab PO BID [id number]-FA-vit K 45 mg iron- 800 mcg-120 mcg (Bariatric Multivitamins) caps PO sertraline 50 mg PO DAILY 30 days vitamin A palmitate 3,000 mcg PO DAILY Tobacco use date assessed: 03/22/24 Dental Screening Dental Screen Date: 03/22/24 Did you have a dental visit in the last 12 months?: Yes Did you have a dental problem in the last 6 months where you did not have access to dental care?: No Was dental information given to patient?: Patient has dentist HPI HPI Comments History of Present Illness Details 28-year-old female presents for depressi on follow-up She admits to taking sertraline as prescribed without adverse reactions She notes controlled depressive symptoms on current treatment regimen She offers no complaints and denies acute symptoms at this time [facility] Medical History (Updated 03/22/24 @ 12:13 by Gautam Kurtz CNP) Diabetes Steatosis, liver Knee pain GERD (gastroesophageal reflux disease) Sleep apnea Hypothyroidism Morbid obesity Surgical History S/P laparoscopic sleeve gastrectomy Hx of wisdom tooth extraction Family History Mother Hypertension Substance abuse Father Hypertension Diabetes Brother Asthma Brother No problems noted. Social History (Reviewed 02/23/24 @ 09:08 by ALEXIA Yates Household Members: Family Housing: House Are you a primary healthcare science specialist to a significant other at home: No Do you presently have visiting nurse or other home services: No Alcohol intake: current Alcohol intake frequency: holidays/special occasions only Comment: vito bandar nichole Patient Tobacco Use Status: Never used Tobacco e-Cigarette/Vaping Use: Never Used service: No Current occupational status: employed and student Current occupation: [employer] Student Cognitive needs: No Hearing needs: No Vision needs: Yes Female Reproductive History Menstrual Date of last menstrual period: 03/02/24 Questionnaire PHQ-9 Over the last 2 weeks, how often have you been bothered by any of the following problems? 1. Little interest or pleasure in doing things: not at all 2. Feeling down, depressed, or hopeless: several days 3. Trouble falling or staying asleep, or sleeping too much: not at all 4. Feeling tired or having little energy: not at all 5. Poor appetite or overeating: more than half the days 6. Feeling bad about yourself - or that you are a failure or have let yourself or your family down: several days 7. Trouble concentrating on things, such as reading the newspaper or watching television: not at all 8. Moving or speaking so slowly that other people could have noticed. Or the opposite - being so fidgety or restless that you have been moving around a lot more than usual: not at all 9. Thoughts that you would be better off or of hurting yourself in some way: not at all Total score: 4 Depression Screening Interpretation: Negative Depression Screening Done: Yes 47997 - PHQ-9 Billing: Yes Source: Developed by Drs. Martinez Mckenzie, Tia Choudhury, Gaudencio Sheehan and colleagues, with an educational ulysses from [employer]. Thrive Questionnaire Date Thrive assessed: 02/06/24 MAURI-7 AMB Questionnaire MAURI-7 Date MAURI - 7 assessed: 03/22/24 Feeling nervous, anxious, or on edge: 1 = Several days Not being able to stop or control worryin = Not at all Worrying too much about different things: 1 = Several days Trouble relaxin = Several days Being so restless that it is hard to sit still: 1 = Several days Becoming easily annoyed or irritable: 0 = Not at all Feeling afraid as if something awful might happen: 0 = Not at all Total MAURI-7 score (0-4 normal; 5-9 mild; 10-14 moderate; 15-21 severe): 4 Source: Developed by Drs. Martinez Mckenzie, Tia Choudhury, Gaudencio Sheehan and colleagues, with an educational ulysses from [employer]. MAURI-7 Assessment Billing MAURI-7 Assessment Tool: MAURI-7 Assessment 79643 Review of Systems Const Details: Const Denies chills, Denies fatigue, Denies fever(s), Denies headache(s) and Denies weakness ENT Denies dizziness and Denies headache(s) Card Denies chest pain, Denies lightheadedness, Denies dyspnea and Denies other (Palpitations) Resp Denies cough, Denies dyspnea, Denies wheezing and Denies other ( shortness of breath) GI Denies abdominal pain, Denies melena, Denies hematochezia, Denies change in bowel habits, Denies dyspepsia and Denies nausea Denies hematuria and Denies dysuria Musc Denies abnormal gait, Denies myalgias, Denies arthralgias, Denies numbness and Denies tingling Skin/Breast Denies rash, Denies unusual bruising and Denies wounds Neuro Denies abnormal gait, Denies dizziness, Denies headache(s), Denies memory loss, Denies numbness, Denies Sensory deficit (Neuro), Denies tingling and Denies weakness Psych Denies anxiety, Denies depression, Denies memory loss Endo Denies cold intolerance, Denies fatigue, Denies heat intolerance, Denies polydipsia and Denies polyuria Aller/Immun Denies wheezing Physical exam (Primary Care) Vital Signs: Last Vital Signs Temp 98.3 F 03/22/24 11:43 Pulse 65 03/22/24 11:43 Resp 16 03/22/24 11:43 BP 114/78 03/22/24 11:43 Pulse Ox 99 03/22/24 11:43 Oxygen Delivery Method Room Air 03/22/24 11:43 BMI result Body Mass Index 29.9 Tobacco/Smoking Status: Tobacco use Status Tobacco use date assessed 03/22/24 03/22/24 11:43 Patient Tobacco Use Status Never used Tobacco 03/22/24 11:41 e-Cigarette/Vaping Use Never Used 03/22/24 11:41 PHQ-9: PHQ-9 Score PHQ-9: Total score 4 03/22/24 12:05 Depression Screening Interpretation: Negative Thrive Assessment: Date of Thrive Assessment Date Thrive assessed 02/06/24 03/22/24 11:41 Const Other: General: no acute distress and well developed Nutritional Appearance: well nourished Orientation/consciousness: patient oriented x3 HENMT Head: Yes normocephalic and Yes atraumatic Eyes General: appearance normal, both eyes and all related structures Pupils: Equal, round and reactive pupils present EOM: EOMs intact bilaterally Resp Effort & Inspection: normal respiratory effort Auscultation: clear to auscultation bilaterally Cardio Rate: regular rate Rhythm: regular rhythm Heart sounds: S1 normal heart sound present, S2 normal heart sound present, no gallops, no murmurs and no rubs GI Palpation (GI): No Abdominal aortic bruit present, Soft to palpation, nontender, No hepatosplenomegaly present and No Rebound tenderness present Auscultation: normal bowel sounds General: Yes no CVA tenderness Back/Spine/Pelvis Back: no CVA tenderness Cervical Spine: cervical ROM normal and No Cervical spine tenderness Thoracic/Lumbar Spine: thoraco-lumbar ROM normal, No pain with thoraco-lumbar ROM, No thoracic spinal tenderness and No lumbar spinal tenderness Extrem General: Yes normal to inspection, No edema and No calf tenderness Skin General: warm and dry. Normal skin color. Normal skin turgor Neuro General: patient oriented x3, gait normal and no focal neuro deficit Cranial nerves: Yes Equal, round and reactive pupils present Cognition (Neuro): normal cognition Gait exam (Neuro): Normal gait present Sensory Exam: No Sensory deficit (Neuro) Psych Appearance: grossly normal Affect: normal affect Attitude: cooperative Thought process: Normal thought process present Results AMB Hemoglobin A1c AMB Hemoglobin A1c 5.5 % Last Edit by Angélica Mazariegos on 03/22/24 13:43 Results Reviewed Results Reviewed: Laboratory Last Values Hgb A1c (Clinic) 5.5 % (4.0-6.0) 03/22/24 12:09 Assessment and Plan Assessment & Plan (1) Depression: Code(s): F32.A - Depression, unspecified Plan: Controlled depressive symptoms PHQ-9 and MAURI-7 scores are normal Continue current treatment regimen Routine exercise encouraged Follow-up in 4 months or sooner with symptoms or concerns Verbalized understanding and agreed with the treatment (2) Diabetes: Code(s): E11.9 - Type 2 diabetes mellitus without complications Plan: History of type 2 diabetes. Not on medications A1c today is 5.5%, within goal of less than 7.0%. Previous A1c was 5.1% Healthy diet and routine exercise encouraged Will monitor A1c periodically Verbalized understanding and agreed with the plan Orders: Orders AMB Hemoglobin A1c Today Z13.9 - Encounter for screening, unspecified Coding Level of Care Code Est Pt Level 4 (22841) Complex EM visit Add On G2211 Diagnoses Depression F32.A Diabetes E11.9 Additional Codes MAURI-7 Assessment Billing - MAURI-7 Assessment Tool: MAURI-7 Assessment 41163 ([id number])
[2024-03-22 11:43] VITALS: BP 114/78; PULSE 65; RESP 16; TEMP 36.8; O2SAT 99; BMI 29.9
== END 2024-03-22 12:26 | disposition home or self-care (01) ==
PROVIDERS: PCP Nurse Practitioner Family; Visit Provider Nurse Practitioner Family
DX: F32.A Depression, unspecified (principal); E11.9 Type 2 diabetes mellitus without complications
CPT/HCPCS: 83036; 99214

== ENCOUNTER 2024-05-14 08:24 | Outpatient (AMB) | payer BC, SELFPAY ==
[2024-05-14 08:29] VITALS: BP 116/70
--- NOTE | 2024-05-14 08:29 | A.OFFVIS_ITS ---
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 Doing well with no concerns. Considering a future after grad school. She tries to eat healthy and stays active with exercise. Current Mirena user, uncertain 2018, recent 2nd episode of bleeding within a month. Currently is sexually active. She denies vaginal itching and irritation. STI screening offered; she declines. Denies family history of breast, ovarian or colon cancer. Last pap smear 3-4 years ago, negative history. [facility] Medical History Diabetes Steatosis, liver Knee pain GERD (gastroesophageal reflux disease) Sleep apnea Hypothyroidism Morbid obesity Surgical History S/P laparoscopic sleeve gastrectomy Hx of wisdom tooth extraction Family History Mother Hypertension Substance abuse Father Hypertension Diabetes Brother Asthma Brother No problems noted. 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 Patient Tobacco Use Status: Never used Tobacco e-Cigarette/Vaping Use: Never Used service: No Current occupational status: employed and student Current occupation: [employer] Student Sexual orientation: Straight/Heterosexual Gender identity: Female Cognitive needs: No Hearing needs: No Vision needs: Yes Female Reproductive History Menstrual Date of last menstrual period: 05/14/24 control method: progestin IUCD (Mirena 2018) Total pregnancies: 0 Review of Systems Const All systems reviewed & are unremarkable except as noted in HPI and below Reports as per HPI Eyes Reports no additional complaints ENT Reports no additional complaints Card Reports no additional complaints Resp Reports no additional complaints GI Reports as per HPI and Reports no additional complaints Reports as per HPI Musc Reports no additional complaints Skin/Breast Reports as per HPI Neuro Reports no additional complaints Psych Reports no additional complaints Endo Reports no additional complaints Britton/Lymph Reports no additional complaints Aller/Immun Reports no additional complaints Physical Exam Vital Signs: Last Vital Signs BP 116/70 05/14/24 08:29 BMI result Body Mass Index 30.0 Const General: cooperative, healthy appearing, no acute distress, well developed and alert Orientation/consciousness: patient oriented x3 HEENT Head: Yes normal to inspection Eyes General: appearance normal, both eyes and all related structures Neck Neck: Yes normal visual inspection Thyroid: Thyroid normal Chest Chest palpation & inspection: normal inspection of the chest and other (no puckering, dimpling, peau de orange, retraction, discharge, masses) Breast/axilla inspection: normal inspection of the breasts Breast/axilla palpation: normal palpation of the breasts Resp Effort & Inspection: normal respiratory effort GI Inspection: Yes normal to inspection Palpation (GI): Soft to palpation Rectal Exam - Female: deferred General: Yes bladder normal to palpation External Female Exam: normal external appearance and normal appearance of the urethra Speculum Exam - Vagina: normal appearance of the vagina, normal palpation, normal vaginal discharge and vaginal bleeding Speculum Exam - Cervix: normal appearance of the cervix, normal palpation and Other cervical findings present (IUD strings at the os, no palpable tip) Bimanual exam- vagina & uterus: normal bimanual exam, normal palpation, uterine size normal, bladder normal to palpation, normal palpation and non-tender Bimanual Exam- Adnexa, other: no masses OB/external & speculum: vaginal bleeding Skin General skin exam: no rashes or lesions noted Rashes: no rashes Neuro General: patient oriented x3 Cognition (Neuro): normal cognition Extrem General: Yes normal to inspection Psych Attitude: cooperative Thought process: Normal thought process present Results AMB Test Urine AMB Test Urine Negative Last Edit by BRENDA Monique on 05/14/24 08:54 Results Reviewed Results Reviewed: Laboratory Last Values Tst Clinic Negative 05/14/24 08:50 Assessment & Plan Assessment & Plan (1) Encounter for well woman exam with routine gynecological exam: Code(s): Z01.419 - Encounter for gynecological examination (general) (routine) without abnormal findings Category: Medical Plan Discussed: Current recommendations for pap smears per ASCCP guidelines. Pap smear obtained. Breast awareness and periodic breast exams. Maintain a healthy lifestyle including a well balanced diet and routine exercise. Anticipatory guidance for removal of Mirena in planning for future would include initiation of vitamins for the benefit of folic acid. Patient verbalizes understanding and agrees to the plan of care. She was given opportunity to ask questions and all questions were answered to the best of my ability. RTO in one year for annual office aide examination. This note is constructed using voice recognition software. While every effort has been made to ensure accuracy, hatchery helper errors may have been included. Orders: Orders AMB HCG Urine Test Today N92.1 - Excessive and frequent menstruation with irregular cycle, Z97.5 - Presence of (intrauterine) contraceptive device PAP rfx HPV E6/E7 and 16 18/45 Today Z01.419 - Encounter for gynecological examination (general) (routine) without abnormal findings Coding Level of Care Code New Pt Prev Care 18-39yr(98124 Diagnoses Encounter for well woman exam with routine gynecological exam Z01.419
== END 2024-05-14 08:50 | disposition home or self-care (01) ==
PROVIDERS: PCP Nurse Practitioner Family; Visit Provider Advanced Practice Midwife
DX: N92.1 Excessive and frequent menstruation with irregular cycle (principal); Z97.5 Presence of (intrauterine) contraceptive device; Z01.419 Encounter for gynecological examination (general) (routine) without abnormal findings
CPT/HCPCS: 99385

== ENCOUNTER → 2024-05-14 08:24 | Outpatient (BNVA) | payer BC, SELFPAY | PROVIDERS: PCP Nurse Practitioner Family; Visit Provider Advanced Practice Midwife | DX: Z01.419 Encounter for gynecological examination (general) (routine) without abnormal findings (principal); Z97.5 Presence of (intrauterine) contraceptive device | CPT/HCPCS: 81025 ==

== ENCOUNTER 2024-05-14 14:58 | Outpatient (REF) | payer BC, SELFPAY | END 2024-05-14 14:59 | disposition home or self-care (01) | LOC: HO.LNP 14:58 | PROVIDERS: Visit Provider Advanced Practice Midwife | DX: Z01.419 Encounter for gynecological examination (general) (routine) without abnormal findings (principal) | CPT/HCPCS: 87625; 88175 ==

== ENCOUNTER 2024-05-17 09:10 | Outpatient (AMB) | payer BC, SELFPAY ==
--- NOTE | 2024-05-17 09:17 | A.OFFVIS_ITS ---
VS Expanded 05/17/24 09:23 BP 138/75 Blood Pressure Location Rt brachial Blood Pressure Position Sitting Pulse 61 Pulse Source Pulse Oximeter Temp 96.8 F Temperature Source Temporal Artery Scan Pulse Oximetry 98 Oxygen Delivery Method Room Air Height 5 ft 6 in Weight 183 lb 3.2 oz BMI 29.6 Body Fat % 31.8 Body Fat Mass 58.2 Fat Free Mass 124.8 Visceral Fat Rating 4.0 Body Water % 49.0 Body Water Mass 89.8 Muscle Mass/Score 118.4 Basal Metabolic Rate/Score 1,718 Intake Visit Reasons: OV PO LSG 11/02/20 Allergies mushrooms Allergy (Intermediate, Uncoded 05/17/24 09:26) Facial Swelling shellfish Allergy (Intermediate, Uncoded 05/17/24 09:26) Itching, hives, rash Medication List - Last Reconciled 05/17/24 by DOROTA Rao calcium citrate-vitamin D3 315 mg-5 mcg (200 unit) (Calcium Citrate + D) 1 tab PO BID docusate sodium 100 mg PO BID inulin (Fiber Gummies) 2 grams PO DAILY [id number]-FA-vit K 45 mg iron- 800 mcg-120 mcg (Bariatric Mult ivitamins) caps PO sertraline 50 mg PO DAILY 30 days vitamin A palmitate 3,000 mcg PO DAILY HPI Comments Details: This?is a?29?yo female who is s/p LSG05/20/2023. Presents for 1 year year post op visit. Weight at last visit on 02/11/2024 was 176 pounds with a BMI of 28.4, weight today is 183.2 pounds, representing a 7.2 pound weight gain with a BMI today of 29.6.? No complaints of nausea, emesis, abdominal pain or reflux, or constipation. Pt reports more social events over the summer, also recently had a menstrual cycle and constipation. Feels more hungry after also starting sertraline. Present meal plan includes: one Premier premade shake in AM and two meals 6f/6f thinks she is overeating at nighttime, her partner likes to order [employer] recognizes hydration could be better Exercise routine includes: running 3-4x week, 5ks and one long run (last week 8 miles) training for a half marathon June 20 in [facility] Medical History Diabetes Steatosis, liver Knee pain GERD (gastroesophageal reflux disease) Sleep apnea Hypothyroidism Morbid obesity Surgical History S/P laparoscopic sleeve gastrectomy Hx of wisdom tooth extraction Family History Mother Hypertension Substance abuse Father Hypertension Diabetes Brother Asthma Brother No problems noted. 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 Patient Tobacco Use Status: Never used Tobacco e-Cigarette/Vaping Use: Never Used service: No Current occupational status: employed and student Current occupation: [employer] & Student Sexual orientation: Straight/Heterosexual Gender identity: Female Cognitive needs: No Hearing needs: No Vision needs: Yes Physical Exam Vital Signs: Last Vital Signs Temp 96.8 F 05/17/24 09:23 Pulse 61 05/17/24 09:23 BP 138/75 05/17/24 09:23 Pulse Ox 98 05/17/24 09:23 Oxygen Delivery Method Room Air 05/17/24 09:23 BMI result Body Mass Index 29.6 Assessment & Plan Assessment & Plan (1) Overweight: Code(s): E66.3 - Overweight Category: Medical (2) S/P laparoscopic sleeve gastrectomy: Code(s): Z98.84 - Bariatric surgery status Category: Surgical Plan Pt will may have a small snack of 1oz (7-10g) protein in afternoon prior to run, can have fruit or veg with it also. Due for labs, ordered. Bowel regimen to help with constipation. RTC 3 months, sent pt a text and encouraged her to reach out between appts with any concerns. I spent a total of 30 minutes reviewing/updating records, examining the patient and counseling the patient on weight management as detailed above. Orders: Orders Insulin Today Z98.84 - Bariatric surgery status Complete Blood Count Auto Diff Today Z98.84 - Bariatric surgery status Lipid Panel Today Z98.84 - Bariatric surgery status IRON PROFILE Today Z98.84 - Bariatric surgery status C Reactive Protein Today Z98.84 - Bariatric surgery status Vitamin B1 Today Z98.84 - Bariatric surgery status Ferritin Today Z98.84 - Bariatric surgery status Hemoglobin A1c Today Z98.84 - Bariatric surgery status Comprehensive Met. Panel Today Z98.84 - Bariatric surgery status Vitamin B12 and Folate Today Z98.84 - Bariatric surgery status Zinc Today Z98.84 - Bariatric surgery status Vitamin A Today Z98.84 - Bariatric surgery status TSH reflex Free T4 Today Z98.84 - Bariatric surgery status Vitamin D 25-OH Total Today Z98.84 - Bariatric surgery status Medications: New inulin (Fiber Gummies) 2 grams PO DAILY 90 tabs 3RF docusate sodium 100 mg PO BID 90 caps 3RF
[2024-05-17 09:23] VITALS: BP 138/75; PULSE 61; TEMP 36; O2SAT 98; BMI 29.6
== END 2024-05-17 10:12 | disposition home or self-care (01) ==
PROVIDERS: PCP Nurse Practitioner Family; Visit Provider Physician Assistant Surgical
DX: E66.3 Overweight (principal); Z68.29 Body mass index [BMI] 29.0-29.9, adult; Z90.3 Acquired absence of stomach [part of]; Z98.84 Bariatric surgery status
CPT/HCPCS: 99214

== ENCOUNTER 2024-05-17 09:10 | Outpatient (REF) | payer BC, SELFPAY ==
[2024-05-17 10:36] LABS: MANUAL DIFF FLAG NO
[2024-05-17 11:08] LABS: Basophils Percent Auto 0.8 % (0-2); Eosinophils Absolute Auto 0.1 X10*3/uL (0.0-0.4); Eosinophils Percent Auto 2.5 % (0-4); Hematocrit 38.6 % (37.0-47.0); Hemoglobin 12.9 g/dl (12.0-16.0); Lymphocytes Absolute Auto 1.9 X10*3/uL (1.2-4.9); Lymphocytes Percent Auto 46.7 % (20-40); Mean Corpuscular HGB Conc 33.4 g/dl (31.0-35.0); Mean Corpuscular Hemoglobin 29.8 pg (27.0-33.0); Mean Corpuscular Volume 89.1 fL (80.0-98.0); Mean Platelet Volume 9.6 fL (9.4-12.3); Monocytes Absolute Auto 0.2 X10*3/uL (0.1-1.2); Monocytes Percent Auto 6.1 % (2-11); Neutrophils Absolute Auto 1.7 x10*3/uL (2.0-8.3); Neutrophils Percent Auto 43.9 % (45-73); Platelet Count 257 X10*3/uL (160-400); Red Blood Count 4.33 X10*6/uL (4.20-5.50); Red Cell Distribution Width 13.4 % (11.0-16.0)
[2024-05-17 11:20] LABS: Estimated Average Glucose 103 mg/dL; Hemoglobin A1c % 5.2 % (<6.0)
[2024-05-17 11:59] LABS: Alanine Aminotransferase 18 U/L (0-31); Alkaline Phosphatase 74 U/L (39-117); Anion Gap 10 (12-20); Aspartate Amino Transferase 23 U/L (5-31); Bilirubin Total 0.4 mg/dL (0.0-1.0); Blood Urea Nitrogen 15 mg/dL (9-16); C Reactive Protein 0.86 mg/dL (< or = 0.50); Calcium 10.2 mg/dL (8.4-10.2); Carbon Dioxide 30 mmol/L (22-29); Chloride 105 mmol/L (96-108); Cholesterol 202 mg/dL (<200); Estimated Glomerular Filt Rate > 60; Ferritin 236 ng/mL (10-122); Glucose Random 82 mg/dL (60-115); HDL Cholesterol 61 mg/dL (>40); Insulin 8 uU/mL (2-29); Iron 117 mcg/dL (30-160); LDL Cholesterol Calculated 126 mg/dL (<100); Percent Iron Saturation 44 % (15-50); Potassium 4.2 mmol/L (3.3-5.1); Sodium 141 mmol/L (135-145); TSH reflex Free T4 1.29 uIU/mL (0.32-4.0); Total Iron Binding Capacity 266 mcg/dL (228-428); Total Protein 7.7 g/dL (6.5-8.0); Triglycerides 79 mg/dL (<150); Unsaturated Iron Binding 149 ug/dL; Vitamin D 25-OH Total 53.2 ng/mL (>30)
[2024-05-17 12:08] LABS: Folate 15.8 ng/mL (> or = 4.0); Vitamin B12 896 pg/mL (200-900)
[2024-05-20 20:33] LABS: Zinc 83 mcg/dL (60-130)
[2024-05-21 14:28] LABS: Vitamin B1 22 nmol/L (8-30)
[2024-05-21 18:27] LABS: Vitamin A 49 mcg/dL (38-98)
== END 2024-05-17 09:11 | disposition home or self-care (01) ==
LOC: HO.LAB 09:10
PROVIDERS: PCP Nurse Practitioner Family; Visit Provider Physician Assistant Surgical
DX: Z98.84 Bariatric surgery status (principal); Z13.1 Encounter for screening for diabetes mellitus
CPT/HCPCS: 36415; 80053; 80061; 82306; 82607; 82728; 82746; 83036; 83525; 83540; 84425; 84443; 84590; 84630; 85025; 86140

== ENCOUNTER 2024-09-03 09:03 | Outpatient (AMB) | payer BC, SELFPAY ==
--- NOTE | 2024-09-03 09:04 | A.OFFPC_ITS ---
Vital Signs 09/03/24 09:11 Height 5 ft 6 in Weight 213 lb BMI 34.4 BP 120/69 Blood Pressure Location Rt brachial Position Sitting Respiration 16 Pulse 63 Pulse Source Pulse Oximeter Temp 98.4 F Temp Source Oral Pulse Oximetry (%) 99 Oxygen Delivery Method Room Air Intake Visit Reasons: medication for depression Intake Note: patient here for follow up on medication for depression Clinic Licensed Practical Nurse Required: No Is last menstrual period known: Yes Last menstrual period: 08/18/24 Post menopausal: No Patient : No Allergies mushrooms Allergy (Intermediate, Uncoded 09/03/24 09:21) Facial Swelling shellfish Allergy (Intermediate, Uncoded 09/03/24 09:21) Itching, hives, rash Medication List - Last Reconciled 09/03/24 by Gautam Kurtz CNP calcium citrate-vitamin D3 315 mg-5 mcg (200 unit) (Calcium Citrate + D) 1 tab PO BID docusate sodium 100 mg PO BID inulin (Fiber Gummies) 2 grams PO DAILY bcdrskynnhjy-yee-iymm-FA-vit K 45 mg iron- 800 mcg-120 mcg (Bariatric Multivitamins) caps PO sertraline 50 mg PO DAILY 90 days Tobacco use date assessed: 09/03/24 Dental Screening Dental Screen Date: 09/03/24 Did you have a dental visit in the last 12 months?: Yes Did you have a dental problem in the last 6 months where you did not have access to dental care?: No Was dental information given to patient?: Patient has dentist HPI HPI Comments History of Present Illness Details 29-year-old female presents for depressi on follow-up. She admits to taking her medications as prescribed without adverse reactions. She reports increased depressive symptoms. She notes work stress due to working 60 hours weekly. She has been experiencing ongoing fatigue and sleepiness with started before she was prescribed sertraline. She denies SI/HI. She has been searching for a therapist but have not found a match; cost has also been a issue. She goes to the gym three times weekly and walks regular. [facility] Medical History Diabetes Steatosis, liver Knee pain GERD (gastroesophageal reflux disease) Sleep apnea Hypothyroidism Morbid obesity Surgical History S/P laparoscopic sleeve gastrectomy Hx of wisdom tooth extraction Family History Mother Hypertension Substance abuse Father Hypertension Diabetes Brother Asthma Brother No problems noted. 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 1. Little interest or pleasure in doing things: several days 2. Feeling down, depressed, or hopeless: several days 3. Trouble falling or staying asleep, or sleeping too much: nearly every day 4. Feeling tired or having little energy: nearly every day 5. Poor appetite or overeating: nearly every day 6. Feeling bad about yourself - or that you are a failure or have let yourself or your family down: several days 7. Trouble concentrating on things, such as reading the newspaper or watching television: more than half the days 8. Moving or speaking so slowly that other people could have noticed. Or the opposite - being so fidgety or restless that you have been moving around a lot more than usual: more than half the days 9. Thoughts that you would be better off or of hurting yourself in some way: not at all Total score: 16 Depression Screening Interpretation: Positive Depression Screening Follow-up: Existing condition and In treatment Depression Screening Done: Yes 23797 - PHQ-9 Billing: Yes Source: Developed by Drs. Martinez Mckenzie, Tia Choudhury, Gaudencio Sheehan and colleagues, with an educational ulysses from [employer]. Thrive Questionnaire Date Thrive assessed: 09/03/24 I am a: Patient What is your living situation today?: I have a steady place to live Within the past 12 months, did the food you bought not last and you didn't have the money to get more?: Never true Within the past 12 months, did you worry whether your food would run out before you got money to buy more?: Never true Do you have trouble paying for medicines?: No Do you have trouble getting transportation to medical appointments?: No Do you have trouble paying your heating and electricity bill?: No Do you have trouble taking care of your child, family member or friend?: No Do you have trouble with day-to-day activities such as bathing, preparing meals, shopping, managing finances, etc.?: No Are you currently unemployed and looking for a job?: No Are you interested in more education?: No Please select the resources that you would like help with: None Currently or been in a relationship where the following occur: No concerns reported THRIVE Score: 0 AUDIT C Alcohol Use Questionnaire (AUDIT-C) 1. How often do you have a drink containing alcohol?: Monthly or less 2. How many drinks containing alcohol do you have on a typical day when you are drinking?: 1 or 2 3. How often do you have six or more drinks on one occasion?: Never Total Score: 1 Score Reviewed/Action Taken: Yes MAURI-7 AMB Questionnaire MAURI-7 Date MAURI - 7 assessed: 09/03/24 Feeling nervous, anxious, or on edge: 2 = More than half the days Not being able to stop or control worryin = Several days Worrying too much about different things: 1 = Several days Trouble relaxin = Several days Being so restless that it is hard to sit still: 2 = More than half the days Becoming easily annoyed or irritable: 1 = Several days Feeling afraid as if something awful might happen: 0 = Not at all Total MAURI-7 score (0-4 normal; 5-9 mild; 10-14 moderate; 15-21 severe): 8 Source: Developed by Drs. Martinez Mckenzie, Tia Choudhury, Gaudencio Sheehan and colleagues, with an educational ulysses from [employer]. MAURI-7 Assessment Billing MAURI-7 Assessment Tool: MAURI-7 Assessment 82519 Review of Systems Const Details: Const Denies chills, Reports fatigue, Denies fever(s), Denies headache(s) and Denies weakness ENT Denies dizziness and Denies headache(s) Card Denies chest pain, Denies lightheadedness, Denies dyspnea and Denies other (Palpitations) Resp Denies cough, Denies dyspnea, Denies wheezing and Denies other ( shortness of breath) GI Denies abdominal pain, Denies melena, Denies hematochezia, Denies change in bowel habits, Denies dyspepsia and Denies nausea Denies hematuria and Denies dysuria Musc Denies abnormal gait, Denies myalgias, Denies arthralgias, Denies numbness and Denies tingling Skin/Breast Denies rash, Denies unusual bruising and Denies wounds Neuro Denies abnormal gait, Denies dizziness, Denies headache(s), Denies memory loss, Denies numbness, Denies Sensory deficit (Neuro), Denies tingling and Denies weakness Psych Denies anxiety, Reports depression, Denies memory loss Endo Denies cold intolerance, Reports fatigue, Denies heat intolerance, Denies polydipsia and Denies polyuria Aller/Immun Denies wheezing Physical exam (Primary Care) Vital Signs: Last Vital Signs Temp 98.4 F 09/03/24 09:11 Pulse 63 09/03/24 09:11 Resp 16 09/03/24 09:11 BP 120/69 09/03/24 09:11 Pulse Ox 99 09/03/24 09:11 Oxygen Delivery Method Room Air 09/03/24 09:11 BMI result Body Mass Index 34.4 Tobacco/Smoking Status: Tobacco use Status Tobacco use date assessed 09/03/24 09/03/24 09:14 Patient Tobacco Use Status Never used Tobacco 09/03/24 09:07 e-Cigarette/Vaping Use Never Used 09/03/24 09:07 PHQ-9: PHQ-9 Score PHQ-9: Total score 16 09/03/24 09:07 Depression Screening Interpretation: Positive Depression Screening Follow-up: Existing condition and In treatment Thrive Assessment: Date of Thrive Assessment Date Thrive assessed 09/03/24 09/03/24 09:07 Currently or been in a relationship where the following occur: No concerns reported Const Other: General: no acute distress and well developed Nutritional Appearance: well nourished Orientation/consciousness: patient oriented x3 HENMS Head: Yes normocephalic and Yes atraumatic Eyes General: appearance normal, both eyes and all related structures Pupils: Equal, round and reactive pupils present EOM: EOMs intact bilaterally Resp Effort & Inspection: normal respiratory effort Auscultation: clear to auscultation bilaterally Cardio Rate: regular rate Rhythm: regular rhythm Heart sounds: S1 normal heart sound present, S2 normal heart sound present, no gallops, no murmurs and no rubs GI Palpation (GI): No Abdominal aortic bruit present, Soft to palpation, nontender, No hepatosplenomegaly present and No Rebound tenderness present Auscultation: normal bowel sounds General: Yes no CVA tenderness Back/Spine/Pelvis Back: no CVA tenderness Cervical Spine: cervical ROM normal and No Cervical spine tenderness Thoracic/Lumbar Spine: thoraco-lumbar ROM normal, No pain with thoraco-lumbar ROM, No thoracic spinal tenderness and No lumbar spinal tenderness Extrem General: Yes normal to inspection, No edema and No calf tenderness Skin General: warm and dry. Normal skin color. Normal skin turgor Neuro General: patient oriented x3, gait normal and no focal neuro deficit Cranial nerves: Yes Equal, round and reactive pupils present Cognition (Neuro): normal cognition Gait exam (Neuro): Normal gait present Sensory Exam: No Sensory deficit (Neuro) Psych Appearance: grossly normal Affect: normal affect Attitude: cooperative Thought process: Normal thought process present Coding Level of Care Code Est Pt Level 4 (80431) Diagnoses Depression F32.A Hypercholesterolemia E78.00 Elevated ferritin R79.89 Additional Codes MAURI-7 Assessment Billing - MAURI-7 Assessment Tool: MAURI-7 Assessment 19246 ([id number]) PHQ-9 - 01516 - PHQ-9 Billing: Yes ([id number]) Assessment & Plan Assessment & Plan (1) Depression: Code(s): F32.A - Depression, unspecified Category: Medical Plan: Increased depressive symptoms, fatigue, and sleepiness. No SI/HI. PHQ-9 and MAURI-7 scores revealed moderately severe depression and mild anxiety respectively. Will increase sertraline to 100 mg daily; advised to take as prescribed. Routine exercise encouraged. Establish with a therapist as planned. Follow-up in 2 months or sooner with worsening or new symptoms. Verbalized understanding and agreed with treatment plan. (2) Hypercholesterolemia: Code(s): E78.00 - Pure hypercholesterolemia, unspecified Category: Medical Plan: Recent total cholesterol and LDL levels are slightly elevated, 202 and 126 respectively. Advised to limit foods high in saturated fat and avoid foods high in trans fat. Routine exercise encouraged. Will continue to monitor. Verbalized understanding and agreed with treatment plan. (3) Elevated ferritin: Code(s): R79.89 - Other specified abnormal findings of blood chemistry Category: Medical Plan: Recent ferritin level is elevated, 236. She has been taking multivitamins with iron. Advised to substitute multivitamin with one that does not have iron. Repeat ferritin labs a few days before her next visit. Verbalized understanding and agreed with the plan. Orders: Orders Ferritin Today R79.89 - Other specified abnormal findings of blood chemistry Medications: New sertraline 100 mg PO DAILY 90 days 90 tabs 1RF Discontinued sertraline Discontinued Reason: Doctor's Order 50 mg PO DAILY 90 days 90 tabs 1RF
[2024-09-03 09:11] VITALS: BP 120/69; PULSE 63; RESP 16; TEMP 36.9; O2SAT 99; BMI 34.4
== END 2024-09-03 09:36 | disposition home or self-care (01) ==
PROVIDERS: PCP Nurse Practitioner Family; Visit Provider Nurse Practitioner Family
DX: F32.A Depression, unspecified (principal); E78.00 Pure hypercholesterolemia, unspecified; R79.89 Other specified abnormal findings of blood chemistry

== ENCOUNTER → 2024-09-03 09:03 | Outpatient (BNVA) | payer BC, SELFPAY | PROVIDERS: PCP Nurse Practitioner Family; Visit Provider Nurse Practitioner Family | DX: F32.A Depression, unspecified (principal); E78.00 Pure hypercholesterolemia, unspecified; R79.89 Other specified abnormal findings of blood chemistry | CPT/HCPCS: 96127 ==

== ENCOUNTER 2024-11-04 09:40 | Outpatient (AMB) | payer BC, SELFPAY ==
--- NOTE | 2024-11-04 09:29 | MHC.OFFVISWM ---
VS Expanded 11/04/24 09:37 Height 5 ft 6 in Weight 214 lb 4 oz BMI 34.6 Intake Visit Reasons: TV PO LSG 11/02/20 Allergies mushrooms Allergy (Intermediate, Uncoded 09/03/24 09:21) Facial Swelling shellfish Allergy (Intermediate, Uncoded 09/03/24 09:21) Itching, hives, rash Medication List - Last Reconciled 11/04/24 by DOROTA Rao calcium citrate-vitamin D3 315 mg-5 mcg (200 unit) (Calcium Citrate + D) 1 tab PO BID docusate sodium 100 mg PO BID inulin (Fiber Gummies) 2 grams PO DAILY sertraline 100 mg PO DAILY 90 days HPI Comments Details: This is a 29 yo female who is s/p LSG 05/20/2023. Presents for 18mo post op visit. Weight at last visit on 05/17/2024 was 183.2 pounds with a BMI of 29.6, weight today is 214.4 pounds, representing a pound weight gain with a BMI today of . No complaints of nausea, emesis, abdominal pain or reflux, or constipation. Pt feels like she fell off and has not been making good choices with nutrition. 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 Has been consistent with shake but at lunchtime thinks she eats larger portions. Using a lot of [employer]. Would like more accountability. Present meal plan includes: one Premier premade shake in AM and two meals 6f/6f Exercise routine includes: was running, completed a half marathon in the fall on and off currently with exercise, waiting for weather to improve PFSH Medical History Diabetes Steatosis, liver Knee pain GERD (gastroesophageal reflux disease) Sleep apnea Hypothyroidism Morbid obesity Surgical History S/P laparoscopic sleeve gastrectomy Hx of wisdom tooth extraction Family History Mother Hypertension Substance abuse Father Hypertension Diabetes Brother Asthma Brother No problems noted. Social History (Updated 05/14/24 @ 08:32 by Marybeth M Mendrala, RMA) Household Members: Family Housing: House Are you a primary primary care physician to a significant other at home: No Do you presently have visiting nurse or other home services: No Alcohol intake: current Alcohol intake frequency: holidays/special occasions only Comment: vito varela Patient Tobacco Use Status: Never used Tobacco e-Cigarette/Vaping Use: Never Used Second Hand Smoke Exposure: No service: No Current occupational status: employed and student Current occupation: [employer] & Student Sexual orientation: Straight/Heterosexual Gender identity: Female Cognitive needs: No Hearing needs: No Vision needs: Yes Telehealth Telehealth Telehealth Platform: Telephone Location of provider rendering services: practice address Location of patient: address on file Patient Identification confirmed using: Name, : Yes Telehealth method: voice only Patient verbally consented to treatment: Yes Patient verbally consented to billing insurance company: Yes Patient informed of any privacy concerns related to visit: Yes Minutes spent on Phone/Video with Pt.: 16 Assessment & Plan Assessment & Plan (1) S/P laparoscopic sleeve gastrectomy: Code(s): Z98.84 - Bariatric surgery status Category: Surgical (2) Obesity: Code(s): E66.9 - Obesity, unspecified Category: Medical Plan Pt is struggling with consistency and accountability. Sent [employer] feliz info. Pt will check in with me weekly on via text with measurements. She reports she plans to exercise more once weather improves and she can resume running outside. 18mo labs ordered, pt will have drawn when she goes for labs for PCP. RTC 3 months. I spent a total of 30 minutes reviewing/updating records, examining the patient and counseling the patient on weight management as detailed above. Orders: Orders Hemoglobin A1c Today E66.9 - Obesity, unspecified, Z98.84 - Bariatric surgery status Lipid Panel Today E66.9 - Obesity, unspecified, Z98.84 - Bariatric surgery status Zinc Today E66.9 - Obesity, unspecified, Z98.84 - Bariatric surgery status C Reactive Protein Today E66.9 - Obesity, unspecified, Z98.84 - Bariatric surgery status Vitamin B1 Today E66.9 - Obesity, unspecified, Z98.84 - Bariatric surgery status Insulin Today E66.9 - Obesity, unspecified, Z98.84 - Bariatric surgery status Complete Blood Count Auto Diff Today E66.9 - Obesity, unspecified, Z98.84 - Bariatric surgery status IRON PROFILE Today E66.9 - Obesity, unspecified, Z98.84 - Bariatric surgery status Comprehensive Met. Panel Today E66.9 - Obesity, unspecified, Z98.84 - Bariatric surgery status Vitamin B12 and Folate Today E66.9 - Obesity, unspecified, Z98.84 - Bariatric surgery status Vitamin A Today E66.9 - Obesity, unspecified, Z98.84 - Bariatric surgery status TSH reflex Free T4 Today E66.9 - Obesity, unspecified, Z98.84 - Bariatric surgery status Ferritin Today E66.9 - Obesity, unspecified, Z98.84 - Bariatric surgery status Vitamin D 25-OH Total Today E66.9 - Obesity, unspecified, Z98.84 - Bariatric surgery status
[2024-11-04 09:37] VITALS: BMI 34.6
--- OUTSIDE RECORDS SUMMARY | 2024-11-04 11:00 | XMS_ITS | Clinical Summary ---
Author Organization [facility] Address [address] [place] [address] Care Team Providers Care Cold Working Inspector Name Role Phone Jennifer Denny MD Primary Care Provider [phone] Allergies Active Allergy Reactions Criticality Noted Date Comments Cat Dander Dermatitis,Eczema,Hi ves,I tching,Rash,Red Eye,Swelling High 05/16/2020 Dog Hair Standardized Allergenic Extract Dermatitis 12/13/2014 Milk Acne,Constipation,De rmati tis,Diarrhea,Eczema,Fever ,Indigestion,Itching,Rash 05/16/2020 Mushroom Dermatitis,Hives,Itc jennifer, Rash 10/02/2018 Mushroom Combination No.1 Dermatitis 12/13/2014 Shrimp Eczema,Hives 05/16/2020 Medications levonorgestreL (Mirena) 20 mcg/24 hours (5 yrs) 52 mg 5 year intrauterine device 1 insert by intrauterine route continuously as needed. Placed Oct 2018 9 Active spironolactone (ALDACTONE) 50 mg tablet TAKE 1 TAB TWICE DAILY W/ BIG GLASS OF WATER 1 Active clobetasoL (TEMOVATE) 0.05% ointment APPLY TO AFFECTED AREAS ON HANDS BID MAX 2 WEEKS PER MONTH PRN WITH FLARES. DO NOT APPLY TO FACE. 1 Active hydroquinone 4 % cream APPLY A THIN LAYER TO AFFECTED AREAS ON FACE EVERY EVENING. DO NOT EXCEED 3 MONTHS 1 Active levothyroxine (SYNTHROID, LEVOTHROID) 25 mcg tabletIndication s:Hypothyroidism , unspecified type Take 1 tablet (25 mcg total) by mouth once a day. 90 tablet 3 2 Active tretinoin (RETIN-A) 0.025 % cream 1 Active dextroamphetamin e-amphetamine XR (ADDERALL XR) 15 mg capsule Take 15 mg by mouth once a day. 2 Active omeprazole (PriLOSEC) 20 mg capsuleIndicatio ns:Heart burn Take 1 capsule (20 mg total) by mouth once a day. 30 capsule 1 2 Active Additional Information Patient not taking.Reported on 03/21/2022 Active Problems Problem Noted Date Diagnosed Date Bilateral carpal tunnel syndrome 02/07/2022 Assessment & Plan (02/07/2022 5:28 PM EDT): -Wrists without evidence of synovitis on exam. -Positive Phalen's test in both hands and Tinel's in L hand. -Possible CTS. -Advised to have EMG/NCS done -Wrist braces provided to wear overnight. -Educated on condition Stiffness of joints of both hands 02/07/2022 Assessment & Plan (02/07/2022 5:29 PM EDT): -Without pain of hand joints. -Neg KIRILL/RF/CCP. No hx of psoriasis to suggest psoriatic arthritis. -Due to body habitus, assessment of hand joints for swelling is limited. -Suspicion for rheumatoid arthritis or other inflammatory arthritis is lower, but if concern persists, we can consider US of hand joints or hand MRI to look for synovitis. Elevated erythrocyte sedimentation rate 02/08/20 22 Assessment & Plan (02/07/2022 5:31 PM EDT): -We discussed with patient that this is nonspecific. She reports that at the time of the blood draw she was having lots of epigastric discomfort with nausea that since has resolved. -Reports being uptodate with Pap smears. Denies fam hx of cancer. -Denies weight loss/night sweats. -Mild inflammatory marker elevation may be seen in obesity -Will recheck today Arthralgia of both ankles 02/07/2022 Assessment & Plan (02/07/2022 5:34 PM EDT): -For the past decade. -Valgus deformity in knees which may affect her ankles as well. -We discussed negative impact of increased BMI on her lower extremity joints. Weight loss would be helpful. Reports seeing Bariatrics. Was advised to work on binge eating problem before consider surgery. Pt has been doing so through a program. -Currently does not use any Tylenol or NSAIDs but can consider as needed. Lactose intolerance 01/10/2022 Assessment & Plan (01/10/2022 9:32 AM EDT): Symptoms of stomach cramping hours after ingestion of dairy, also not consistent with an IgE mediated allergy. It would be incredibly unusual for an adult in the [place] to go on to develop a milk allergy. This can be further evaluated with a breath test. She will discuss with her PCP. Recommended Lactaid tablets with the first bite of dairy. GERD (gastroesophageal reflux disease) Assessment & Plan (01/10/2022 9:33 AM EDT): Her abdominal symptoms are not consistent with an IgE mediated food allergy, and therefore no food allergy testing is indicated. Reports of serum testing several years ago likely represents false positive results, as food allergy testing has a 50 to 80% false positive rate. We discussed the antireflux diet and lifestyle modifications, she was given written information on same. She will discuss increasing omeprazole 20 mg to twice daily with her PCP. Watery eyes 01/10/2022 Assessment & Plan (01/10/2022 9:32 AM EDT): I offered to perform skin testing to environmental allergens but she declined. I offered to prescribe an allergy eyedrop but she would like to discuss with her PCP. Symptoms of gastroesophageal reflux 01/23/2021 Assessment & Plan (01/23/2021 10:15 AM EDT): Reports Being nauseous in the morning and having a knot in her upper stomach and occasionally sore throat in am that all resolve within 30-60 min after waking up. No other signs or symptoms suggestive of allergies. Urine test negative this morning at home. Has Mirena IUD. Exam is benign. Most possibly related to acid reflux. Recommended to avoid eating late at night, decreased fatty food, avoiding spicy food, avoid caffeinated beverages and caffeine in the evening, do not lay down for 1-2 hours after eating. Urea breath test will be done to rule out H.pylori infection. A 2-week course of omeprazole recommended. Eating disorder 08/28/2020 Assessment & Plan (08/29/2020 11:18 AM EST): Patient has been referred by the psychiatrist who has evaluated her regarding eating disorder/binge eating and evaluation in weight management center regarding obesity to be evaluated with EKG and a series of labs. No current cardiac sx/compliants. Labs ordered including CBC, CMP, magnesium, phosphorus, UA. EKG done in the office today was normal. A copy of the visit note, EKG and lab results will be faxed to her psychiatrist at [facility] as requested by patient. Psychological factors affecting morbid obesity 1 10/13/2019 FAIZA (obstructive sleep apnea) 06/28/2020 Assessment & Plan (01/23/2021 8:57 AM EDT): 10/02/20: Telehealth follow-up with Dr. Olivas, pulmonology. Patient had hard time with the CPAP and it was actually making her sleep worse and making her feel worse, which improved after discontinuation of CPAP. Recommend weight loss. Follow-up in 6 months. Assessment & Plan (07/25/2020 10:30 AM EST): Patient referred for pulmonology evaluation by [facility] weight loss center. Patient diagnosed with mild to moderate obstructive sleep apnea and prescribed CPAP machine. Patient reports using CPAP machine at least 4 to 5 hours every night. -Encouraged patient to continue using CPAP machine nightly Need for vaccination 05/16/2020 Overview (07/25/2020): HPV series and missed one dose of Varicella Assessment & Plan (07/25/2020 10:45 AM EST): Patient obtained records from prior PCP office. Records reviewed and it does not appear she completed varicella vaccine series or HPV vaccine. -Follow-up with patient at next clinic appointment to offer completion of vaccine schedule. Assessment & Plan (05/16/2020 3:46 PM EDT): Influenza vaccine administered today. Elevated blood pressure reading 05/16/2020 Assessment & Plan (01/23/2021 10:09 AM EDT): One time elevated blood pressure in the office. Blood pressure is within the normal range. Patient has lost 7 pounds since August 2020 which should help with blood pressure reading as well. Assessment & Plan (08/29/2020 11:21 AM EST): Blood pressure was initially high during her first visit, possibly related to anxiety as it later came down during that visit and is normal in the office today. Assessment & Plan (07/25/2020 10:31 AM EST): Patient was noted to have elevated blood pressure reading during last primary care visit on 05/16 BP 140/80. Patient states she was nervous at the time. Repeat blood pressure reading today 118/62. -Continue to monitor blood pressures -Encourage patient to get at least 150 minutes a week of moderate exercise -Encourage patient to continue using CPAP every night for at least 4 to 5 hours a night Assessment & Plan (05/16/2020 4:17 PM EDT): Patient's BP was slightly elevated today, 140/80 and 138/40 on recheck. Patient reports she has had previous episodes of elevated BP prior to clinic appointments that return to normal limits once she is less nervous - Recheck BP at next visit in 2-3 months Hypothyroidism 05/02/2020 Assessment & Plan (01/23/2021 10:07 AM EDT): Diagnosed 05/01/20 with TSH 4.64 started on Levothyroxine 25mcg daily on 05/02/20. Reports taking levothyroxine resting in the morning, 30 to 60 minutes before breakfast. No side effects from medication. We will repeat TSH. Assessment & Plan (07/25/2020 10:42 AM EST): Diagnosed with hypothyroidism on 05/01/2020 with TSH of 4.64. She reported at that time increased fatigue, constipation, and difficulty losing weight for at least 6 months. She was started on levothyroxine 25 mcg daily. On interview today patient denies difficulties with fatigue, constipation, palpitations, and dry skin unchanged. Thyroid nontender on physical exam. -Plan to recheck TSH today -Continue taking levothyroxine 25 mcg in the morning on an empty stomach with water and 2 hours before eating -If no adjustment made to levothyroxine dosage based on today's TSH, patient can return to clinic in 6 months for follow-up Assessment & Plan (05/16/2020 3:43 PM EDT): Patient reports she had an annual physical exam 2 weeks ago at her prior PCP office with Dr. Rodas. She reports her blood work collected at this visit revealed hypothyroidism and she was instructed to start taking 25mcg levothyroxine PO nightly starting on 05/02/20. Brandee reports increased fatigue, constipation and difficulty losing weight for at least 6 months prior to that visit. There are no thyroid studies documented in chart review. Thyroid was mildly enlarged but nontender to palpation on physical exam. - Instructed patient to take levothyroxine 25mcg in the morning on an empty stomach and 2 hours before eating - Patient will request thyroid study results to be sent to us from her former PCP office - return to clinic in 2-3 months for follow up labs Binge eating disorder 07/27/2019 Assessment & Plan (01/23/2021 10:08 AM EDT): History of binge eating disorder, has completed 1 program for binge eating in the past with good help. Currently follows with psych therapist and reports good help. She has been given information by her to make a psychiatry appointment for possible medication treatment for anxiety/binge eating. She is planning to call and make appointment. Screening for malignant neoplasm of cervix 04/27 Overview (07/25/2020): PAP w STERILE PREPARATION TECHNICIAN Oct 2018 - next due in 3 years IUD (intrauterine device) in place 10/29/2018 Overview (05/16/2020): 10/29/18 Mirena IUD inserted. Assessment & Plan (05/16/2020 2:31 PM EDT): Mirena IUD in place 10/29/18. - Follow up with MULTIPLE KNIFE EDGE TRIMMER OPERATOR as scheduled in 2 weeks PCOS (polycystic ovarian syndrome) 10/02/2018 Overview (06/22/2020): PCOS, with insulin resistance. On metformin ER 750/BID. Assessment & Plan (07/25/2020 10:44 AM EST): Patient reports history of irregular periods starting at 13 years old, underwent work-up with ultrasound as a teenager and was diagnosed with PCOS. Follows with MULTIPLE KNIFE EDGE TRIMMER OPERATOR at [facility]. Has had Mirena IUD placed since October 2018. Last follow-up with MULTIPLE KNIFE EDGE TRIMMER OPERATOR was 05/23/2020. -Continue follow-up with MULTIPLE KNIFE EDGE TRIMMER OPERATOR at [facility] -Next Pap due in October 2021 Assessment & Plan (05/16/2020 3:42 PM EDT): Patient reports she had irregular periods starting at 13 years old, underwent work up with ultrasound as a teenager and diagnosed with PCOS. States she continues to have irregular periods and occasional significant cramping. Denies any problems with flow since Mirena IUD was placed in October 2018. - Continue follow up with MULTIPLE KNIFE EDGE TRIMMER OPERATOR as scheduled in 2 weeks Inappropriately high serum insulin 10/02/2018 Overview (05/16/2020): On Metformin x 1 year through Endocrine. Exercising regularly, not changing dietary habits. Unable to lose weight. Well adult health check 04/27/2018 Overview (05/16/2020): 10/02/18- pap NILM Plan: repeat pap in 3 years Insulin resistance 07/17/2017 Overview (07/25/2020): 05/01/20: no microalbuminuria. Hemoglobin A1c 5.8 Assessment & Plan (07/25/2020 10:39 AM EST): Patient with history of PCOS and related insulin resistance. Last hemoglobin A1c was 5.8 in April 2020. Patient reports compliance with Metformin 750 mg twice daily. States her prior PCP also gave her blood glucose testing strips and that she occasionally does test her blood sugars and has seen them be typically 80-90 at home. Discussed with patient that Metformin is unlikely to cause episodes of hypoglycemia. -Continue Metformin 750 mg twice daily -Encouraged healthy eating for weight loss -See above plan for obesity Assessment & Plan (05/16/2020 3:40 PM EDT): History of PCOS and related insulin resistance. Patient reports she has been compliant with this medication and denies any side effects. - Continue Metformin 750mg BID - Monitor lab work at next physical - encouraged healthy eating for weight loss and referral for Weight Loss Center Thyroid antibody positive 04/14/2017 Eczema 03/27/2017 Assessment & Plan (07/25/2020 10:37 AM EST): Patient reports a history of eczema on hands for many years. States today she does have some dry skin on her left hand that is not too bothersome. Occasionally uses Kenalog cream as prescribed by her prior primary care doctor. -Continue to monitor Assessment & Plan (05/16/2020 3:46 PM EDT): Patient reports eczema on hands, particularly during periods of stress. Denies current flare or problem. - Continue to monitor Obesity (BMI 30-39.9) 03/27/2017 Assessment & Plan (01/23/2021 10:06 AM EDT): Following with weight management center in [facility]. Initially had plan for bariatric surgery but since finishing [facility] program for been treating and following with a therapist, she is not interested in doing bariatric surgery. She has lost about 7 pounds since August 2020. Reports exercising regularly. Assessment & Plan (07/25/2020 10:36 AM EST): Patient with BMI of 41 and history of hypothyroidism, PCOS, and insulin resistance. Patient reports difficulty losing weight for many years and that she has been overweight since childhood. Patient referred to [facility] weight loss center on 05/16/2020. Patient met with providers via telehealth on 06/19/2020 and states she would like to proceed with bariatric surgery. Surgical options include gastric bypass and sleeve gastrectomy. She met with the center's dietitian, health psychologist, and data analytics architect. -Patient will continue for 6 months to a year in bariatric surgical preparation program -Patient states her goal is to keep her weight stable and is hopeful for some downtrending with behavioral changes -Encouraged patient to get at least 150 minutes of moderate exercise a week with walking and weight lifting -Encourage patient to continue healthy dietary habits by planning and eating small frequent meals, staying hydrated, and eliminating caloric beverages, restricting carbohydrates and increasing healthy vegetables with adequate protein. Assessment & Plan (05/16/2020 3:45 PM EDT): Patient with a history of hypothyroidism, PCOS and insulin resistance who reports difficulty loosing weight for many years. Patient states she has been overweight since childhood and has always found it has been very easy for her to put on weight but very hard to loose weight. She reports walking about 1 mile every day. - Encouraged healthy diet for weight loss with fresh fruits and vegetables while avoiding carbohydrates - Encouraged her to continue exercise, 30 minutes a day for at least 5 days a week - Referral to Weight Loss Center for further recommendations and assistance. Acanthosis 03/27/2017 Irregular periods 03/27/2017 Overview (06/22/2020): 10/29/18 Mirena IUD inserted. Hirsutism 03/27/2017 Vitamin d deficiency 03/27/2017 SOB (shortness of breath) Resolved Problems Problem Noted Date Diagnosed Date Resolved Date Overweight 10/05/2008 05/16/2020 Overview (05/16/2020): On Metformin, exercising regularly, not changing high carb diet. Nutrition consult ordered. Immunizations Immunization Administration Dates Next Due Diphtheria, Tetanus Toxoids and Acellular Pertussis Vaccine 07/22/2001,06/09/1998,1997,07/09,1997 Haemophilus Influenzae Type B Vaccine, PRP-T Conjugate 06/09/1998,1997,1997,05/10 Hepatitis A Vaccine, Pediatric/Adolescent Dosage, 2 Dose Schedule 06/03/2011,12/01/2010 Hepatitis B Vaccine, Pediatr ic or Pediatric/Adolescent Dosage 1997,1997,1997 Human Papilloma Virus Vaccin e, Quadrivalent 10/20/2009,06/02/2009,04/19/2009 Influenza, Injectable, Quadr ivalent, Contains Preservative 05/16/2020,07/31/2019 Influenza, Injectable, Quadr ivalent, Preservative Free 05/10/2018 Influenza, Trivalent, MDV, Injectable 06/30/2021 Influenza, Unspecified 06/30/2021 Measles, Mumps, and Rubella Vaccine 07/22/2001,1 Meningococcal Polysaccharide (Groups A, C, Y and W-135) Diphtheria Toxoid Conjugate Vaccine (MCV4P) 04/19/2009,10/05/2008 Poliovirus Vaccine, Inactivated 07/22/20,1997,1997,05/10 Tetanus Toxoid, Reduced Diph theria Toxoid, and Acellular Pertussis Vaccine, Adsorbed 05/16/2020,04/30/2019,04/28/2009,10/05 Varicella Virus Vaccine 10/29/2009,10/29/2000 Family History Medical History Relation Name Comments COPD Brother Hypertension Father Diabetes Father's Sister Alcohol abuse Mother Hypertension Mother Arthritis Paternal Grandmother Cancer Neg Hx Relation Name Status Comments Brother Father Father's Sister Mother Paternal Grandmother Social History Tobacco Use Types Packs/Day Years Used Date Smoking Tobacco: Never Smokeless Tobacco: Never Alcohol Use Standard Drinks/Week Comments Yes 0 (1 standard drink = 0.6 oz pur e alcohol) twice a month mixed drinks Comments Unknown Sex and Gender Information Value Date Recorded Sex Assigned at Female 05/15/2020 5:14 PM EDT Legal Sex Female 5:36 AM EDT Gender Identity Female 05/15/2020 5:14 PM EDT Sexual Orientation Bisexual 05/15/2020 5: 14 PM EDT Last Filed Vital Signs Vital Sign Reading Time Taken Comments Blood Pressure 130/86 03/21/2022 8:43 AM EDT Pulse 98 03/21/2022 8:43 AM EDT Temperature 36.8 ??C (98.2 ??F) 03/21/2022 8:43 AM ED T Respiratory Rate 20 01/23/2022 3:24 PM EDT Oxygen Saturation 98% 03/21/2022 8:43 AM EDT Inhaled Oxygen Concentration - - Weight 123.4 kg (272 lb) 05/15/2022 12:59 PM EDT Height 170.2 cm (5' 7 ) 05/15/2022 12:59 PM EDT Body Mass Index 42.6 05/15/2022 12:59 PM EDT Plan of Treatment Health Maintenance Due Date Last Done Comments HIV Screening 1997 COVID-19 Vaccine ( season) 2024 07/16/2022, 06/30/2021, 12/16/2020, Additional history exists Influenza Vaccine (#1) 2024 , 07/16/2022, 07/16/2022, Additional history exists Alcohol/Substance Use Screening 09/01/2024 Depression Screening and Follow-Up 09/01/2024 Social Drivers of Health Annual Screening 09/01/2024 Pap Smear 01/18/2025 01/18/2022, 10/02/2018 DTaP,Tdap,and Td Vaccines (10 - Td or Tdap) 05/16/2030 05/16/2020, 04/30/2019, 04/28/2009, Additional history exists RSV Vaccine (60+ years old and patients) (1 - 1-dose 75+ series) 02/28/2072 Hepatitis B Vaccines Completed 1997, 1997, 1997 Varicella Vaccines Completed 10/29/2009, 10/29/2000 Hepatitis C Screening Completed 01/03/2022, 021 Pneumococcal Vaccine: Pediatric (0-5 Years) and At-Risk Patients (6-50 Years) Aged Out No longer eligible based on patient's age to complete this topic Procedures * Due to [place] [employer] law, this organization might not be sharing negative HIV tests. Procedure Name Priority Date/Time Associated Diagnosis Comments HM PAP SMEAR 01/18/2022 HEPATITIS PANEL, ACUTE Routine 01/03/2022 8:38 AM EDT Pain in other joint Elevated liver enzymes from Last 3 Months or Most Recently Relevant to Health Maintenance Results * Due to [place] [employer] law, this organization might not be sharing negative HIV tests. * HM PAP SMEAR (01/18/2022) 01/18/2022 us Onbase Scan [facility] Final Resu lt * Hepatitis Panel, Acute (01/03/2022 8:38 AM EDT) Hepatitis A IgM NON-REACT AMISHA NON-REACT AMISHA 01/04/2022 1:27 AM EDT [employer] Hepatitis B Surface Antigen NON-REACT AMISHA NON-REACT AMISHA 01/04/2022 1:27 AM EDT [employer] [facility] Hepatitis B Core Antibody NON-REACT AMISHA NON-REACT AMISHA 01/03/2022 10:50 PM EDT [employer] [facility] Hepatitis C Antibody NON-REACT AMISHA NON-REACT AMISHA 01/04/2022 1:27 AM EDT [employer] [facility] Signal To Cut-Off 0.01 <1.00 01/04/2022 1:27 AM EDT [employer] [facility] Comment: HCV antibody was non-reactive. There is no laboratory evidence of HCV infection. In most cases, no further action is required. However, if recent HCV exposure is suspected, a test for HCV RNA (test code 38813) is suggested. For additional information please refer to http://ARI.1d4 Pty/faq/YDJ83c7 (This link is being provided for informational/ educational purposes only.) For additional information, please refer to http://ARI.1d4 Pty/faq/ASK519 (This link is being provided for informational/ educational purposes only.) Blood Structure of peripheral vein / Unknown 01/03/2022 8:38 AM EDT 01/03/2022 4:04 PM EDT Narrative [facility] - 01/04/2022 1:40 AM EDT FASTING:YES us Jennifer Denny MD LAB BLOOD ORDERABLES Final Result [facility] [address], [place] [address], [place] [phone] [facility] [address] [place] [address] from Last 3 Months or Most Recently Relevant to Health Maintenance Insurance [facility] HMO/POS Advance Directives Documents on File Type Date Recorded Patient Franchise Specialist Expl anation Health Care Proxy 01/23/2021 11:46 AM 05-2 Care Teams Cold Working Inspector Relationship Specialty Start Date End Date Jennifer Denny MD [address] [place] [id number] PCP - General Internal Medicine 03/15/21
--- OUTSIDE RECORDS SUMMARY | 2024-11-04 11:00 | XMS_ITS | Referral Summary ---
Author Organization [facility] Address [address] [place] [address] Care Team Providers Care Athletic Events Scorer Name Role Phone Jennifer Denny MD Primary Care Provider +1- [phone] Allergies Active Allergy Reactions Criticality Noted Date [...] will be faxed to her psychiatrist at [facility] as requested by patient. Psychological factors [...] for pulmonology evaluation by [facility] weight loss center. Patient diagnosed [...] of cervix 04/27 Overview (07/25/2020): PAP w POINTER HELPER Oct 2018 - next due in 3 years IUD (intrauterine device) in place 10/29/2018 Overview (05/16/2020): 10/29/18 Mirena IUD inserted. Assessment & Plan (05/16/2020 2:31 PM EDT): Mirena IUD in place 10/29/18. - Follow up with PERFORMANCE MANAGEMENT CONSULTANT as scheduled in 2 weeks PCOS (polycystic ovarian syndrome) 10/02/2018 Overview (06/22/2020): PCOS, with insulin resistance. On metformin ER 750/BID. Assessment & Plan (07/25/2020 10:44 AM EST): Patient reports history of irregular periods starting at 13 years old, underwent work-up with ultrasound as a teenager and was diagnosed with PCOS. Follows with PERFORMANCE MANAGEMENT CONSULTANT at [facility]. Has had Mirena IUD placed since October 2018. Last follow-up with PERFORMANCE MANAGEMENT CONSULTANT was 05/23/2020. -Continue follow-up with PERFORMANCE MANAGEMENT CONSULTANT at [facility] -Next Pap due in October 2021 [...] October 2018. - Continue follow up with PERFORMANCE MANAGEMENT CONSULTANT as scheduled in 2 weeks Inappropriately high [...] EDT): Following with weight management center in [facility]. Initially had plan for bariatric surgery but since finishing [facility] program for been treating and following [...] childhood. Patient referred to [facility] weight loss center on 05/16/2020. Patient met with providers via telehealth on 06/19/2020 and states she would like to proceed with bariatric surgery. Surgical options include gastric bypass and sleeve gastrectomy. She met with the center's dietitian, health psychologist, and junior web developer. -Patient will continue for 6 months to [...] Vaccine, Adsorbed 05/16/2020,04/30/2019,04/28/2009,10/05 Varicella Virus Vaccine 10/29/2009,10/29/2000 Social History Tobacco Use Types Packs/Day Years [...] 05/15/2022 12:59 PM EDT Plan of Treatment Not on file Procedures * Due to [place] law, this organization might not be sharing negative HIV tests. Procedure Name Priority Date/Time Associated Diagnosis Comments HM PAP SMEAR 01/18/2022 HEPATITIS PANEL, ACUTE Routine 01/03/2022 8:38 AM EDT Pain in other joint Elevated liver enzymes from Last 3 Months or Most Recently Relevant to Health Maintenance Results * Due to [place] law, this organization might not be sharing negative HIV tests. * PAP SMEAR (01/18/2022) 01/18/2022 us Onbase Scan [facility] Final Resu lt * Hepatitis Panel, Acute (01/03/2022 8:38 AM EDT) Hepatitis A IgM NON-REACT AMISHA NON-REACT AMISHA 01/04/2022 1:27 AM EDT [facility] Hepatitis B Surface Antigen NON-REACT AMISHA NON-REACT AMISHA 01/04/2022 1:27 AM EDT [facility] Hepatitis B Core Antibody NON-REACT AMISHA NON-REACT AMISHA 01/03/2022 10:50 PM EDT [facility] Hepatitis C Antibody NON-REACT AMISHA NON-REACT AMISHA 01/04/2022 1:27 AM EDT [facility] Signal To Cut-Off 0.01 <1.00 01/04/2022 1:27 AM EDT [facility] Comment: HCV antibody was non-reactive. There is no laboratory evidence of HCV infection. In most cases, no further action is required. However, if recent HCV exposure is suspected, a test for HCV RNA (test code 82628) is suggested. For additional information please refer to http://Greenstack.Frogdice/faq/QWZ70r8 (This link is being provided for informational/ educational purposes only.) For additional information, please refer to http://Greenstack.Naehas.Filmaster/faq/JWF786 (This link is being provided for informational/ educational purposes only.) Blood Structure of peripheral vein / Unknown 01/03/2022 8:38 AM EDT 01/03/2022 4:04 PM EDT Narrative [facility] - 01/04/2022 1:40 AM EDT FASTING:YES Jennifer Denny MD LAB BLOOD ORDERABLES Final Result [facility] [address] [facility] [address] Floor, [place] [address], [place] [phone] [facility] [address] [place] [address] from Last 3 Months or Most Recently Relevant to Health Maintenance Insurance [facility] HMO/POS Advance Directives Documents on File Type Date Recorded Patient Roof Plumber Expl anation Health Care Proxy 01/23/2021 11:46 AM 12-31 Care Teams Athletic Events Scorer Relationship Specialty Start Date End Date Jennifer Denny MD [address] [place] [address] PCP - General Internal Medicine 03/15/21
--- OUTSIDE RECORDS SUMMARY | 2024-11-04 11:00 | XMS_ITS | Encounter Summary ---
Author Organization [facility] Address [address] [place] [address] Care Team Providers Care Hone Operator Name Role Phone Jennifer Denny MD Primary Care Provider [phone]- [phone] Encounter Details Date Type Department Care Team (Late st Contact Info) Description 11/23/2020 Klick[facility]hart Message [facility] Revenue Cycle Management [address] [place] [address] Mychart, Generic Provider [address] [place] [phone] cc letter sent Social History Tobacco Use Types Packs/Day Years [...] Orientation Bisexual 05/15/2020 5: 14 PM EDT documented as of this encounter Plan of Treatment Not on file documented as of this encounter Visit Diagnoses Not on filedocumented in this encounter Care Teams Hone Operator Relationship Specialty Start Date End Date Jennifer Denny MD [address] [place] [address] PCP - General Internal Medicine 03/15/21 documented as of this encounter
== END 2024-11-04 09:59 | disposition home or self-care (01) ==
LOC: HO.HBS 09:40
PROVIDERS: PCP Nurse Practitioner Family; Visit Provider Physician Assistant Surgical
DX: E66.811 Obesity, class 1 (principal); Z68.34 Body mass index [BMI] 34.0-34.9, adult; Z90.3 Acquired absence of stomach [part of]; Z98.84 Bariatric surgery status
CPT/HCPCS: 98967

== ENCOUNTER → 2024-11-04 09:40 | Outpatient (BNVA) | payer BC, SELFPAY | PROVIDERS: PCP Nurse Practitioner Family; Visit Provider Physician Assistant Surgical ==

== ENCOUNTER 2024-11-20 09:18 | Outpatient (REF) | payer BC, SELFPAY ==
[2024-11-20 09:34] LABS: MANUAL DIFF FLAG NO
[2024-11-20 10:13] LABS: Basophils Percent Auto 0.5 % (0-2); Eosinophils Absolute Auto 0.1 X10*3/uL (0.0-0.4); Eosinophils Percent Auto 2.9 % (0-4); Hematocrit 39.8 % (37.0-47.0); Hemoglobin 13.5 g/dl (12.0-16.0); Imm Gran Abs Auto 0.01 X10*3/uL (0.00-0.03); Imm Gran Pct Auto 0.2 % (0.0-0.4); Lymphocytes Absolute Auto 1.5 X10*3/uL (1.2-4.9); Lymphocytes Percent Auto 35.5 % (20-40); Mean Corpuscular HGB Conc 33.9 g/dl (31.0-35.0); Mean Corpuscular Hemoglobin 29.4 pg (27.0-33.0); Mean Corpuscular Volume 86.7 fL (80.0-98.0); Mean Platelet Volume 9.5 fL (9.4-12.3); Monocytes Absolute Auto 0.2 X10*3/uL (0.1-1.2); Monocytes Percent Auto 5.8 % (2-11); Neutrophils Absolute Auto 2.3 x10*3/uL (2.0-8.3); Neutrophils Percent Auto 55.1 % (45-73); Platelet Count 235 X10*3/uL (160-400); Red Blood Count 4.59 X10*6/uL (4.20-5.50); White Blood Count 4.2 X10*3/uL (4.8-10.8)
[2024-11-20 10:31] LABS: Estimated Average Glucose 105 mg/dL; Hemoglobin A1c % 5.3 % (<6.0); Total Hemoglobin (HGBA1C) 3541.7407 umol/L
[2024-11-20 10:55] LABS: Anion Gap 11 (12-20)
[2024-11-20 11:01] LABS: Alanine Aminotransferase 17 U/L (0-31); Albumin Level 4.1 g/dL (3.5-5.0); Alkaline Phosphatase 72 U/L (39-117); Aspartate Amino Transferase 21 U/L (5-31); Bilirubin Total 0.4 mg/dL (0.0-1.0); Blood Urea Nitrogen 10 mg/dL (9-16); C Reactive Protein 0.57 mg/dL (< or = 0.50); Calcium 9.3 mg/dL (8.4-10.2); Carbon Dioxide 27 mmol/L (22-29); Chloride 105 mmol/L (96-108); Cholesterol 204 mg/dL (<200); Estimated Glomerular Filt Rate > 60; Glucose Random 76 mg/dL (60-115); HDL Cholesterol 60 mg/dL (>40); Iron 127 mcg/dL (30-160); LDL Cholesterol Calculated 122 mg/dL (<100); Percent Iron Saturation 47 % (15-50); Sodium 139 mmol/L (135-145); Total Iron Binding Capacity 268 mcg/dL (228-428); Total Protein 8.2 g/dL (6.5-8.0); Triglycerides 114 mg/dL (<150); Unsaturated Iron Binding 141 ug/dL
[2024-11-20 11:25] LABS: Ferritin 188 ng/mL (10-122); TSH reflex Free T4 3.09 uIU/mL (0.32-4.0); Vitamin D 25-OH Total 34.6 ng/mL (>30)
[2024-11-20 11:30] LABS: Insulin 10 uU/mL (2-29)
[2024-11-20 11:35] LABS: Folate 15.6 ng/mL (> or = 4.0); Vitamin B12 850 pg/mL (200-900)
[2024-11-24 00:58] LABS: Zinc 73 mcg/dL (60-130)
[2024-11-24 03:29] LABS: Vitamin A 47 mcg/dL (38-98)
[2024-11-29 05:52] LABS: Vitamin B1 14 nmol/L (8-30)
== END 2024-11-20 09:19 | disposition home or self-care (01) ==
LOC: HO.LAB 09:18
PROVIDERS: PCP Nurse Practitioner Family; Visit Provider Physician Assistant Surgical
DX: E66.9 Obesity, unspecified (principal); Z98.84 Bariatric surgery status; Z13.1 Encounter for screening for diabetes mellitus
CPT/HCPCS: 36415; 80053; 80061; 82306; 82607; 82728; 82746; 83036; 83525; 83540; 84425; 84443; 84590; 84630; 85025; 86140

== ENCOUNTER 2024-11-22 14:47 | Outpatient (AMB) | payer BC, SELFPAY ==
--- NOTE | 2024-11-22 15:11 | MHC.PC.OV ---
Vital Signs 11/22/24 15:13 Height 5 ft 6 in Weight 215 lb 6 oz BMI 34.8 BP 116/80 Blood Pressure Location Rt brachial Position Sitting Pulse 59 Pulse Source Pulse Oximeter Temp 97.8 F Temp Source Oral Pulse Oximetry (%) 97 Oxygen Delivery Method Room Air Intake Visit Reasons: 2mos depression Intake Note: patient here for 2 month follow up on depression Vp Biology Required: No Allergies mushrooms Allergy (Intermediate, Uncoded 09/03/24 09:21) Facial Swelling shellfish Allergy (Intermediate, Uncoded 09/03/24 09:21) Itching, hives, rash Tobacco use date assessed: 09/03/24 Dental Screening Dental Screen Date: 09/03/24 HPI HPI Comments History of Present Illness Details 29-year-old female presents for depression follow-up. She admits to taking sertraline as prescribed without adverse reactions. She notes that her depressive symptoms significantly improved after sertraline increase at her last visit. Her sleep her significantly improved. She offers no complaints and denies acute symptoms at this time. [facility] Medical History Diabetes Steatosis, liver Knee pain GERD (gastroesophageal reflux disease) Sleep apnea Hypothyroidism Morbid obesity Surgical History S/P laparoscopic sleeve gastrectomy Hx of wisdom tooth extraction Family History Mother Hypertension Substance abuse Father Hypertension Diabetes Brother Asthma Brother No problems noted. Social History (Updated 05/14/24 @ 08:32 by BRENDA Monique) Household Members: Family Housing: House Are you a primary pharmacy care coordinator to a significant other at home: No Do you presently have visiting nurse or other home services: No Alcohol intake: current Alcohol intake frequency: holidays/special occasions only Comment: standby assist oob Patient Tobacco Use Status: Never used Tobacco e-Cigarette/Vaping Use: Never Used Second Hand Smoke Exposure: No service: No Current occupational status: employed and student Current occupation: [employer] Sexual orientation: Straight/Heterosexual Gender identity: Female Cognitive needs: No Hearing needs: No Vision needs: Yes Questionnaire PHQ-9 Over the last 2 weeks, how often have you been bothered by any of the following problems? 1. Little interest or pleasure in doing things: several days 2. Feeling down, depressed, or hopeless: several days 3. Trouble falling or staying asleep, or sleeping too much: several days 4. Feeling tired or having little energy: more than half the days 5. Poor appetite or overeating: nearly every day 6. Feeling bad about yourself - or that you are a failure or have let yourself or your family down: several days 7. Trouble concentrating on things, such as reading the newspaper or watching television: more than half the days 8. Moving or speaking so slowly that other people could have noticed. Or the opposite - being so fidgety or restless that you have been moving around a lot more than usual: more than half the days 9. Thoughts that you would be better off or of hurting yourself in some way: not at all Total score: 13 Depression Screening Interpretation: Positive Depression Screening Follow-up: Existing condition and In treatment Depression Screening Done: Yes Source: Developed by Drs. Martinez Mckenzie, Tia Choudhury, Gaudencio Sheehan and colleagues, with an educational ulysses from [employer]. Thrive Questionnaire Date Thrive assessed: 09/03/24 I am a: Patient What is your living situation today?: I have a steady place to live Within the past 12 months, did the food you bought not last and you didn't have the money to get more?: Never true Within the past 12 months, did you worry whether your food would run out before you got money to buy more?: Never true Do you have trouble paying for medicines?: No Do you have trouble getting transportation to medical appointments?: No Do you have trouble paying your heating and electricity bill?: No Do you have trouble taking care of your child, family member or friend?: No Do you have trouble with day-to-day activities such as bathing, preparing meals, shopping, managing finances, etc.?: No Are you currently unemployed and looking for a job?: No Are you interested in more education?: No Please select the resources that you would like help with: None Currently or been in a relationship where the following occur: No concerns reported THRIVE Score: 0 MAURI-7 AMB Questionnaire MAURI-7 Date MAURI - 7 assessed: 09/03/24 Feeling nervous, anxious, or on edge: 1 = Several days Not being able to stop or control worryin = Not at all Worrying too much about different things: 1 = Several days Trouble relaxin = More than half the days Being so restless that it is hard to sit still: 1 = Several days Becoming easily annoyed or irritable: 0 = Not at all Feeling afraid as if something awful might happen: 0 = Not at all Total MAURI-7 score (0-4 normal; 5-9 mild; 10-14 moderate; 15-21 severe): 5 Source: Developed by Drs. Martinez Mckenzie, Tia Choudhury, Gaudencio Sheehan and colleagues, with an educational ulysses from [employer]. Review of Systems Const Details: Const Denies chills, Denies fatigue, Denies fever(s), Denies headache(s) and Denies weakness ENT Denies dizziness and Denies headache(s) Card Denies chest pain, Denies lightheadedness, Denies dyspnea and Denies other (Palpitations) Resp Denies cough, Denies dyspnea, Denies wheezing and Denies other ( shortness of breath) GI Denies abdominal pain, Denies melena, Denies hematochezia, Denies change in bowel habits, Denies dyspepsia and Denies nausea Denies hematuria and Denies dysuria Musc Denies abnormal gait, Denies myalgias, Denies arthralgias, Denies numbness and Denies tingling Skin/Breast Denies rash, Denies unusual bruising and Denies wounds Neuro Denies abnormal gait, Denies dizziness, Denies headache(s), Denies memory loss, Denies numbness, Denies Sensory deficit (Neuro), Denies tingling and Denies weakness Psych Denies anxiety, Denies depression, Denies memory loss Endo Denies cold intolerance, Denies fatigue, Denies heat intolerance, Denies polydipsia and Denies polyuria Aller/Immun Denies wheezing Physical exam (Primary Care) BMI result Body Mass Index 34.8 Tobacco/Smoking Status: Tobacco use Status Tobacco use date assessed 09/03/24 11/22/24 15:11 Patient Tobacco Use Status Never used Tobacco 11/22/24 15:11 e-Cigarette/Vaping Use Never Used 11/22/24 15:11 Depression Screening Interpretation: Positive Depression Screening Follow-up: Existing condition and In treatment Thrive Assessment: Date of Thrive Assessment Date Thrive assessed 09/03/24 11/22/24 15:11 Currently or been in a relationship where the following occur: No concerns reported Const Other: General: no acute distress and well developed Nutritional Appearance: well nourished Orientation/consciousness: patient oriented x3 [facility]: Yes normocephalic and Yes atraumatic Eyes General: appearance normal, both eyes and all related structures Pupils: Equal, round and reactive pupils present EOM: EOMs intact bilaterally Resp Effort & Inspection: normal respiratory effort Auscultation: clear to auscultation bilaterally Cardio Rate: regular rate Rhythm: regular rhythm Heart sounds: S1 normal heart sound present, S2 normal heart sound present, no gallops, no murmurs and no rubs GI Palpation (GI): No Abdominal aortic bruit present, Soft to palpation, nontender, No hepatosplenomegaly present and No Rebound tenderness present Auscultation: normal bowel sounds General: Yes no CVA tenderness Back/Spine/Pelvis Back: no CVA tenderness Cervical Spine: cervical ROM normal and No Cervical spine tenderness Thoracic/Lumbar Spine: thoraco-lumbar ROM normal, No pain with thoraco-lumbar ROM, No thoracic spinal tenderness and No lumbar spinal tenderness Extrem General: Yes normal to inspection, No edema and No calf tenderness Skin General: warm and dry. Normal skin color. Normal skin turgor Lesions: no lesions Rashes: no rashes Trauma: no lacerations or abrasions Wounds: no wounds Nails: normal Neuro General: patient oriented x3, gait normal and no focal neuro deficit Cranial nerves: Yes Equal, round and reactive pupils present Cognition (Neuro): normal cognition Gait exam (Neuro): Normal gait present Sensory Exam: No Sensory deficit (Neuro) Psych Appearance: grossly normal Affect: normal affect Attitude: cooperative Thought process: Normal thought process present Coding Level of Care Code Est Pt Level 4 (80682) Diagnoses Hypercholesterolemia E78.00 Depression F32.A Assessment & Plan Assessment & Plan (1) Hypercholesterolemia: Code(s): E78.00 - Pure hypercholesterolemia, unspecified Category: Medical Plan: Recent total cholesterol and LDL levels the slightly elevated, to 204 and 122 respectively. Advised to limit foods high in saturated fat and avoid foods high in trans fat. Routine exercise encouraged. Fast for 10-12 hours, may drink water, perform lipid panel blood work 2-3 days before next visit. Verbalized understanding and agreed with the treatment plan. (2) Depression: Code(s): F32.A - Depression, unspecified Category: Medical Plan: Controlled depressive symptoms. Sleep is significant improved. PHQ-9 and MAURI-7 scores revealed moderate depression and mild anxiety respectively. Continue current treatment regimen. Follow-up in 2 months for an extended physical exam, depression, and lab review. Return sooner with symptoms or concerns. Verbalized understanding and agreed with treatment plan. Orders: Orders Lipid Panel 2 Months E78.00 - Pure hypercholesterolemia, unspecified
[2024-11-22 15:13] VITALS: BP 116/80; PULSE 59; TEMP 36.6; O2SAT 97; BMI 34.8
--- OUTSIDE RECORDS SUMMARY | 2024-11-22 17:39 | XMS_ITS | Referral Summary ---
Author Organization [facility] Address [address] [place] [address] Care Team Providers Care Exhibit Electrician Name Role Phone Jennifer Denny MD Primary Care Provider +1- [phone] Allergies Active Allergy Reactions Criticality Noted Date [...] for synovitis. Elevated erythrocyte sedimentation rate 02/08/20 Assessment & Plan (02/07/2022 5:31 PM EDT): [...] will be faxed to her psychiatrist at [facility] as requested by patient. Psychological factors [...] EST): Patient referred for pulmonology evaluation by [facility] weight loss center. Patient diagnosed with mild [...] of cervix 04/27 Overview (07/25/2020): PAP w CANDY PULLER Oct 2018 - next due in 3 years IUD (intrauterine device) in place 10/29/2018 Overview (05/16/2020): 10/29/18 Mirena IUD inserted. Assessment & Plan (05/16/2020 2:31 PM EDT): Mirena IUD in place 10/29/18. - Follow up with AGRICULTURAL INSPECTOR as scheduled in 2 weeks PCOS (polycystic ovarian syndrome) 10/02/2018 Overview (06/22/2020): PCOS, with insulin resistance. On metformin ER 750/BID. Assessment & Plan (07/25/2020 10:44 AM EST): Patient reports history of irregular periods starting at 13 years old, underwent work-up with ultrasound as a teenager and was diagnosed with PCOS. Follows with AGRICULTURAL INSPECTOR at [facility]. Has had Mirena IUD placed since October 2018. Last follow-up with AGRICULTURAL INSPECTOR was 05/23/2020. -Continue follow-up with AGRICULTURAL INSPECTOR at [facility] -Next Pap due in October 2021 [...] October 2018. - Continue follow up with AGRICULTURAL INSPECTOR as scheduled in 2 weeks Inappropriately high [...] EDT): Following with weight management center in [facility]. 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 Patient referred to [facility] weight loss center on 05/16/2020. Patient met with providers via telehealth on 06/19/2020 and states she would like to proceed with bariatric surgery. Surgical options include gastric bypass and sleeve gastrectomy. She met with the center's dietitian, health psychologist, and licensed prosthetist/orthotist. -Patient will continue for 6 months to [...] Not on file Procedures * Due to [place] state law, this organization might not be sharing negative HIV tests. Procedure Name Priority Date/Time Associated Diagnosis Comments PAP SMEAR 01/18/2022 HEPATITIS PANEL, ACUTE Routine 01/03/2022 8:38 AM EDT Pain in other joint Elevated liver enzymes from Last 3 Months or Most Recently Relevant to Health Maintenance Results * Due to [place] state law, this organization might not be sharing negative HIV tests. * PAP SMEAR (01/18/2022) 01/18/2022 us Onbase Scan [facility] HEALTH MAINTENANCE Final Resu lt * Hepatitis Panel, Acute (01/03/2022 8:38 AM EDT) Hepatitis A IgM NON-REACT AMISHA NON-REACT AMISHA 01/04/2022 1:27 AM EDT [facility] Hepatitis B Surface Antigen NON-REACT AMISHA NON-REACT AMISHA 01/04/2022 1:27 AM EDT [facility] Hepatitis B Core Antibody NON-REACT AMISHA NON-REACT AMISHA 01/03/2022 10:50 PM EDT [facility] Hepatitis C Antibody NON-REACT AMISHA NON-REACT AMISHA 01/04/2022 1:27 AM EDT [facility] Signal To Cut-Off 0.01 <1.00 01/04/2022 1:27 AM EDT [facility] Comment: HCV antibody was non-reactive. There is no laboratory evidence of HCV infection. In most cases, no further action is required. However, if recent HCV exposure is suspected, a test for HCV RNA (test code 18310) is suggested. For additional information please refer to http://education.K[employer]..Drawn to Scale/faq/VGW15q8 (This link is being provided for informational/ educational purposes only.) For additional information, please refer to http://education.K[employer]Drawn to Scale/faq/FDG192 (This link is being provided for informational/ educational purposes only.) Blood Structure of peripheral vein / Unknown 01/03/2022 8:38 AM EDT 01/03/2022 4:04 PM EDT Narrative [facility] - 01/04/2022 1:40 AM EDT FASTING:YES Jennifer Denny MD LAB BLOOD ORDERABLES Final Result [facility] [address] [facility] [address], [place] [address], [place] [phone] [facility] [address] [place] [address] from Last 3 Months or Most Recently Relevant to Health Maintenance Insurance [facility] HMO/POS Advance Directives Documents on File Type Date Recorded Patient Manager Customer Service Expl anation Health Care Proxy 01/23/2021 11:46 AM 05- Care Teams Exhibit Electrician Relationship Specialty Start Date End Date Jennifer Denny MD [address] [place] [address] PCP - General Internal Medicine 03/15/21
--- OUTSIDE RECORDS SUMMARY | 2024-11-22 17:39 | XMS_ITS | Clinical Summary ---
Author Organization [facility] Address [address] [place] [address] Care Team Providers Care Field Recorder Name Role Phone Jennifer Denny MD Primary Care Provider [phone]- [phone] Allergies Active Allergy Reactions Criticality Noted Date [...] will be faxed to her psychiatrist at [facility] as requested by patient. Psychological factors [...] EST): Patient referred for pulmonology evaluation by [facility] weight loss center. 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 Assessment & Plan (05/16/2020 2:31 PM EDT): Mirena IUD in place 10/29/18. - Follow up with NEWSPAPER JOURNALIST as scheduled in 2 weeks PCOS (polycystic ovarian syndrome) 10/02/2018 Overview (06/22/2020): PCOS, with insulin resistance. On metformin ER 750/BID. Assessment & Plan (07/25/2020 10:44 AM EST): Patient reports history of irregular periods starting at 13 years old, underwent work-up with ultrasound as a teenager and was diagnosed with PCOS. Follows with NEWSPAPER JOURNALIST at [facility]. Has had Mirena IUD placed since October 2018. Last follow-up with NEWSPAPER JOURNALIST was 05/23/2020. -Continue follow-up with NEWSPAPER JOURNALIST at [facility] -Next Pap due in October 2021 [...] October 2018. - Continue follow up with NEWSPAPER JOURNALIST as scheduled in 2 weeks Inappropriately high [...] EDT): Following with weight management center in [facility]. Initially had plan for bariatric surgery [...] been overweight since childhood. Patient referred to [facility] weight loss center on 05/16/2020. Patient met with providers via telehealth on 06/19/2020 and states she would like to proceed with bariatric surgery. Surgical options include gastric bypass and sleeve gastrectomy. She met with the center's dietitian, health psychologist, and mending carrier. -Patient will continue for 6 months to [...] complete this topic Procedures * Due to [place] Reamaze law, this organization might not be sharing negative HIV tests. Procedure Name Priority Date/Time Associated Diagnosis Comments PAP SMEAR 01/18/2022 HEPATITIS PANEL, ACUTE Routine 01/03/2022 8:38 AM EDT Pain in other joint Elevated liver enzymes from Last 3 Months or Most Recently Relevant to Health Maintenance Results * Due to [place] Reamaze law, this organization might not be sharing negative HIV tests. * PAP SMEAR (01/18/2022) 01/18/2022 us Onbase Scan [facility] Final Resu lt * Hepatitis Panel, Acute (01/03/2022 8:38 AM EDT) Hepatitis A IgM NON-REACT AMISHA NON-REACT AMISHA 01/04/2022 1:27 AM EDT [facility] Hepatitis B Surface Antigen NON-REACT AMISHA NON-REACT AMISHA 01/04/2022 1:27 AM EDT [facility] Hepatitis B Core Antibody NON-REACT AMISHA NON-REACT AMISHA 01/03/2022 10:50 PM EDT [facility] Hepatitis C Antibody NON-REACT AMISHA NON-REACT AMISHA 01/04/2022 1:27 AM EDT [facility] Signal To Cut-Off 0.01 <1.00 01/04/2022 1:27 AM EDT [facility] Comment: HCV antibody was non-reactive. There is no laboratory evidence of HCV infection. In most cases, no further action is required. However, if recent HCV exposure is suspected, a test for HCV RNA (test code 30189) is suggested. For additional information please refer to http://Plug.dj.etouches/faq/HXL61m4 (This link is being provided for informational/ educational purposes only.) For additional information, please refer to http://Plug.dj.etouches/faq/PEC123 (This link is being provided for informational/ educational purposes only.) Blood Structure of peripheral vein / Unknown 01/03/2022 8:38 AM EDT 01/03/2022 4:04 PM EDT Narrative [facility] - 01/04/2022 1:40 AM EDT FASTING:YES us Jennifer Denny MD LAB BLOOD ORDERABLES Final Result [facility] [address], [place] [address], [employer] [facility] [address] [place] [address] from Last 3 Months or Most Recently Relevant to Health Maintenance Insurance [facility] HMO/POS Advance Directives Documents on File Type Date Recorded Patient Social Services Designee Expl [facility] Care Proxy 01/23/2021 11:46 AM 05-2 Care Teams Field Recorder Relationship Specialty Start Date End Date Jennifer Denny MD [address] [place] [address] PCP - General Internal Medicine 03/15/21
--- OUTSIDE RECORDS SUMMARY | 2024-11-22 17:39 | XMS_ITS | Encounter Summary ---
Author Organization [facility] Address [address] [place] [address] Care Team Providers Care Hand Bender Name Role Phone Jennifer Denny MD Primary Care Provider [phone]- [phone] Encounter Details Date Type Department Care Team (Late st Contact Info) Description 11/23/2020 [employer] Message [facility] Revenue [employer] Management [address] [place] [id number] Mychart, Generic Provider [address] [place] [address] cc letter sent Social History Tobacco Use [...] on filedocumented in this encounter Care Teams Hand Bender Relationship Specialty Start Date End Date Jennifer Denny MD [address] [place] [address] PCP - General Internal Medicine 03/15/21 documented as of this encounter
== END 2024-11-22 15:28 | disposition home or self-care (01) ==
LOC: HO.HMCFM 14:48
PROVIDERS: PCP Nurse Practitioner Family; Visit Provider Nurse Practitioner Family
DX: E78.00 Pure hypercholesterolemia, unspecified (principal); F32.A Depression, unspecified

== ENCOUNTER 2025-05-09 10:05 | Outpatient (AMB) | payer BC, SELFPAY ==
--- NOTE | 2025-05-09 10:08 | A.OFFPC_ITS ---
Vital Signs 05/09/25 10:15 Height 5 ft 6 in Weight 230 lb 6 oz BMI 37.2 BP 119/72 Blood Pressure Location Rt brachial Position Sitting Respiration 16 Pulse 67 Pulse Source Pulse Oximeter Temp 98.3 F Temp Source Oral Pulse Oximetry (%) 98 Oxygen Delivery Method Room Air Intake Visit Reasons: pe Intake Note: patient here for CPE Time Motion Analyst Required: No Is last menstrual period known: Yes Last menstrual period: 05/02/25 Post menopausal: No Patient : No Allergies mushrooms Allergy (Intermediate, Uncoded 05/09/25 10:49) Facial Swelling shellfish Allergy (Intermediate, Uncoded 05/09/25 10:49) Itching, hives, rash Medication List - Last Reconciled 05/09/25 by Gautam Kurtz CNP calcium citrate-vitamin D3 315 mg-5 mcg (200 unit) (Calcium Citrate + D) 1 tab PO BID docusate sodium 100 mg PO BID inulin (Fiber Gummies) 2 grams PO DAILY multivitamin 1 tab PO DAILY sertraline 100 mg PO DAILY 90 days Tobacco use date assessed: 05/09/25 Dental Screening Dental Screen Date: 05/09/25 Did you have a dental visit in the last 12 months?: Yes Did you have a dental problem in the last 6 months where you did not have access to dental care?: No Was dental information given to patient?: Patient has dentist HPI HPI Comments History of Present Illness Details 30-year-old female presents for an exten ded physical exam. She admits to taking her medications as prescribed without adverse reactions. She notes that her mood is generally well managed. 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 Acute issue(s) - Reports eczema flare up to the palm of her left hand for the past 1 month. Hydrocortisone cream has not been effective. Past Medical History - NIDDM2, GERD, hepatic steatosis, hypot hyroidism, hypercholesterolemia, sleep apnea-no CPAP, morbid obesity, vitamin-D deficiency, vitamin-A deficiency, myopia, eczema, depression Social History - Nonsmoker. Does not vape. Drinks 3 gla sses or wine or beer monthly. Denies recreational drug use - Has been making unhealthy dietary lopez freda. Active but but does not exercise. Generally sleep well Health maintenance - Last eye exam was 2 years ago. She has an eye exam scheduled with [facility] in 2 weeks - Last dental visit was 3 months ago - Last tetanus vaccine unknown; received Tdap vaccine today - Has not been vaccinated for the flu season; declines vaccination - Last pap smear test was in 05/2024 with [facility] wide area network administrator [facility] Medical History Diabetes Steatosis, liver Knee pain GERD (gastroesophageal reflux disease) Sleep apnea Hypothyroidism Morbid obesity Surgical History S/P laparoscopic sleeve gastrectomy Hx of wisdom tooth extraction Family History Mother Hypertension Substance abuse Father Hypertension Diabetes Brother Asthma Brother No problems noted. 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 1. Little interest or pleasure in doing things: several days 2. Feeling down, depressed, or hopeless: several days 3. Trouble falling or staying asleep, or sleeping too much: not at all 4. Feeling tired or having little energy: nearly every day 5. Poor appetite or overeating: nearly every day 6. Feeling bad about yourself - or that you are a failure or have let yourself or your family down: several days 7. Trouble concentrating on things, such as reading the newspaper or watching television: more than half the days 8. Moving or speaking so slowly that other people could have noticed. Or the opposite - being so fidgety or restless that you have been moving around a lot more than usual: several days 9. Thoughts that you would be better off or of hurting yourself in some way: not at all Total score: 12 Depression Screening Interpretation: Positive Depression Screening Follow-up: Existing condition and In treatment Depression Screening Done: Yes 52448 - PHQ-9 Billing: Yes Source: Developed by Drs. Martinez Mckenzie, Tia Choudhury, Gaudencio Sheehan and colleagues, with an educational ulysses from [employer]. Thrive Questionnaire Date Thrive assessed: 05/09/25 I am a: Patient What is your living situation today?: I have a steady place to live Within the past 12 months, did the food you bought not last and you didn't have the money to get more?: Never true Within the past 12 months, did you worry whether your food would run out before you got money to buy more?: Never true Do you have trouble paying for medicines?: No Do you have trouble getting transportation to medical appointments?: No Do you have trouble paying your heating and electricity bill?: No Do you have trouble taking care of your child, family member or friend?: No Do you have trouble with day-to-day activities such as bathing, preparing meals, shopping, managing finances, etc.?: No Are you currently unemployed and looking for a job?: No Are you interested in more education?: No Please select the resources that you would like help with: None Currently or been in a relationship where the following occur: No concerns reported THRIVE Score: 0 AUDIT C Alcohol Use Questionnaire (AUDIT-C) 1. How often do you have a drink containing alcohol?: Monthly or less 2. How many drinks containing alcohol do you have on a typical day when you are drinking?: 3 or 4 3. How often do you have six or more drinks on one occasion?: Never Total Score: 2 Score Reviewed/Action Taken: Yes MAURI-7 AMB Questionnaire MAURI-7 Date MAURI - 7 assessed: 05/09/25 Feeling nervous, anxious, or on edge: 2 = More than half the days Not being able to stop or control worryin = More than half the days Worrying too much about different things: 2 = More than half the days Trouble relaxin = More than half the days Being so restless that it is hard to sit still: 2 = More than half the days Becoming easily annoyed or irritable: 1 = Several days Feeling afraid as if something awful might happen: 0 = Not at all Total MAURI-7 score (0-4 normal; 5-9 mild; 10-14 moderate; 15-21 severe): 11 Source: Developed by Drs. Martinez Mckenzie, Tia Choudhury, Gaudencio Sheehan and colleagues, with an educational ulysses from [employer]. MAURI-7 Assessment Billing MAURI-7 Assessment Tool: MAURI-7 Assessment 32490 Review of Systems Const Details: Denies chills, Denies fatigue, Denies fever(s), Denies headache(s) and Denies weakness HEENT Denies change in vision, Denies dizziness, Denies headache(s), Denies hearing loss, Denies nasal congestion, Denies sinus pain, Denies sinus pressure and Denies sore throat Card Denies chest pain, Denies lightheadedness, Denies dyspnea and Denies other (palpitations) Resp Denies cough, Denies dyspnea and Denies wheezing GI Denies abdominal pain, Denies melena, Denies hematochezia, Denies change in bowel habits, Denies dyspepsia and Denies nausea Denies hematuria and Denies dysuria Musc Denies abnormal gait, Denies myalgias, Denies arthralgias, Denies numbness and Denies tingling Skin/Breast Reports rash, Denies unusual bruising and Denies wounds Neuro Denies abnormal gait, Denies dizziness, Denies headache(s), Denies memory loss, Denies numbness, Denies Sensory deficit (Neuro), Denies tingling and Denies weakness Psych Denies anxiety, Denies depression and Denies memory loss Endo Denies cold intolerance, Denies fatigue, Denies heat intolerance, Denies polydipsia and Denies polyuria Britton/Lymph Denies easy bleeding and Denies easy bruising Aller/Immun Denies wheezing Physical exam (Primary Care) Vital Signs: Last Vital Signs Temp 98.3 F 05/09/25 10:15 Pulse 67 05/09/25 10:15 Resp 16 05/09/25 10:15 BP 119/72 05/09/25 10:15 Pulse Ox 98 05/09/25 10:15 Oxygen Delivery Method Room Air 05/09/25 10:15 BMI result Body Mass Index 37.2 Tobacco/Smoking Status: Tobacco use Status Tobacco use date assessed 05/09/25 05/09/25 10:19 Patient Tobacco Use Status Never used Tobacco 05/09/25 10:11 e-Cigarette/Vaping Use Never Used 05/09/25 10:11 PHQ-9: PHQ-9 Score PHQ-9: Total score 12 05/09/25 10:50 Depression Screening Interpretation: Positive Depression Screening Follow-up: Existing condition and In treatment Thrive Assessment: Date of Thrive Assessment Date Thrive assessed 05/09/25 05/09/25 10:19 Currently or been in a relationship where the following occur: No concerns reported Const Other: General: no acute distress, well developed, alert and awake Nutritional Appearance: well nourished Orientation/consciousness: patient oriented x3 HENMT Head: Yes normocephalic and Yes atraumatic Ears: hearing grossly normal bilaterally and TM's normal bilaterally General nose exam: Normal external nose present and Normal nares present Mouth: Normal oral and palatal mucosa present and moist mucous membranes Teeth and gingiva: dentition normal Throat: Yes oropharynx normal Eyes Pupils: Equal, round and reactive pupils present and Pupil accommodation reflex normal EOM: EOMs intact bilaterally Neck Neck: Yes normal visual inspection, Yes no lymphadenopathy and Yes trachea midline Thyroid: Thyroid normal Carotids: no bruits Lymphatic: no lymphadenopathy noted Chest Chest palpation & inspection: normal inspection of the chest Resp Effort & Inspection: normal respiratory effort Auscultation: clear to auscultation bilaterally Cardio Rate: regular rate Rhythm: regular rhythm Heart sounds: S1 normal heart sound present, S2 normal heart sound present, no gallops, no murmurs and no rubs Bruits: no abdominal aortic bruits and no carotid bruits GI Palpation (GI): No Abdominal aortic bruit present, Soft to palpation, nontender, No hepatosplenomegaly present and No Rebound tenderness present Auscultation: normal bowel sounds General: Yes no CVA tenderness Back/Spine/Pelvis Back: no CVA tenderness Cervical Spine: cervical ROM normal and No Cervical spine tenderness Thoracic/Lumbar Spine: thoraco-lumbar ROM normal, No pain with thoraco-lumbar ROM, No thoracic spinal tenderness and No lumbar spinal tenderness Skin General: warm and dry. Normal skin color. Normal skin turgor Lesions: no lesions Rashes: very dry, thick, intact skin noted to the palm of left hand Trauma: no lacerations or abrasions Wounds: no wounds Nails: normal Neuro General: patient oriented x3, gait normal and CN's II-XI intact bilaterally Cranial nerves: Yes Equal, round and reactive pupils present Cognition (Neuro): normal cognition Gait exam (Neuro): Normal gait present Motor exam (neuro): 5/5 motor strength present throughout Sensory Exam: No Sensory deficit (Neuro) Deep tendon reflexes (DTR's): Right patellar reflex intensity grade: 2+ and Left patellar reflex intensity grade: 2+ Extrem General: Yes normal to inspection, No edema and No calf tenderness Psych Appearance: grossly normal Affect: normal affect Attitude: cooperative Thought process: Normal thought process present Immunizations Boostrix Tdap 2.5 Lf unit-8 mcg-5 Lf/0.5 mL intramuscular syringe Performing Provider: Gautam Kurtz CNP Performing Location: [facility] Administered by: Jean Munson RN on 05/09/25 11:15 Dose Route Admin Location Dispensed Lot Number Expiration Date ND Nurseryperson 0.5 mL IM Right Deltoid 0.5 mL [id number] 06/21/27 14087-983-24 [employer] Total Dispensed Waste 0.5 mL 0 % VIS Given Date VIS Provided VIS Publication Date 05/09/25 Single Vaccine 21 Eligibility Eligibility Date Funding Source Not [facility] Eligible 05/09/25 Private Coding Level of Care Code Est Pt Level 4 (00972) Est Pt Prev Care 18-39y(05263) Diagnoses Normal physical examination, routine Z00.00 Eczema L30.9 Obesity E66.9 Depression F32.A Additional Codes MAURI-7 Assessment Billing - MAURI-7 Assessment Tool: MAURI-7 Assessment 18894 ([id number]) PHQ-9 - 41207 - PHQ-9 Billing: Yes ([id number]) Assessment & Plan Assessment & Plan (1) Normal physical examination, routine: Code(s): Z00.00 - Encounter for general adult medical examination without abnormal findings Category: Medical Plan: No significant functional limitations noted. Continue current treatment regimen. Healthy diet and routine exercise encouraged. Perform fasting lipid panel blood work and follow-up for telehealth visit for labs review in 1 month. Return sooner with symptoms or concerns. Verbalized understanding and agreed with the plan. (2) Eczema: Code(s): L30.9 - Dermatitis, unspecified Category: Medical Plan: Reports eczema flare up to the palm of her left hand for the past 1 month. Hydrocortisone cream has not been effective. Very dry, thick, intact skin noted to the palm of left hand. Fluticasone cream as prescribed. Follow-up as needed. Verbalized understanding and agreed with the plan. (3) Obesity: Code(s): E66.9 - Obesity, unspecified Category: Medical Plan: She currently weighs 230 lb, BMI is 37.2. She has been making on healthy lifestyle choices and has not been exercising. Declines referral to voice network engineer/dietitian or weight management clinic at this time. She intends to start making healthy lifestyle changes. Healthy diet and routine exercise encouraged. Follow-up as needed. Verbalized understanding and agreed with the plan. (4) Depression: Code(s): F32.A - Depression, unspecified Category: Medical Plan: She notes that her mood is generally well managed. 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 PHQ-9 and MAURI-7 score revealed moderate depression and anxiety. Continue current treatment regimen. Routine exercise encouraged. Follow-up with worsening or new symptoms. Verbalized understanding and agreed with the plan. Orders: Orders UA CC w/rflx Micro + Cult Today Z00.00 - Encounter for general adult medical examination without abnormal findings TDaP Immunization Today Z23 - Encounter for immunization Medications: New fluticasone propionate 0.05% 1 appl topical BID PRN 30 grams 0RF rash
[2025-05-09 10:15] VITALS: BP 119/72; PULSE 67; RESP 16; TEMP 36.8; O2SAT 98; BMI 37.2
--- OUTSIDE RECORDS SUMMARY | 2025-05-09 11:54 | XMS_ITS | Clinical Summary ---
Author Organization [facility] Address [address] [place] [address] Care Team Providers Care Wash Oil Pump Operator Name Role Phone Jennifer Denny MD Primary Care Provider +1- [phone] Allergies Active Allergy Reactions Criticality Noted Date [...] will be faxed to her psychiatrist at [facility] as requested by patient. Psychological factors [...] EST): Patient referred for pulmonology evaluation by [facility] weight loss center. Patient diagnosed [...] of cervix 04/27 Overview (07/25/2020): PAP w VMWARE ENGINEER Oct 2018 - next due in 3 years IUD (intrauterine device) in place 10/29/2018 Overview (05/16/2020): 10/29/18 Mirena IUD inserted. Assessment & Plan (05/16/2020 2:31 PM EDT): Mirena IUD in place 10/29/18. - Follow up with CONTRACT PROGRAMMER as scheduled in 2 weeks PCOS (polycystic ovarian syndrome) 10/02/2018 Overview (06/22/2020): PCOS, with insulin resistance. On metformin ER 750/BID. Assessment & Plan (07/25/2020 10:44 AM EST): Patient reports history of irregular periods starting at 13 years old, underwent work-up with ultrasound as a teenager and was diagnosed with PCOS. Follows with CONTRACT PROGRAMMER at [facility]. Has had Mirena IUD placed since October 2018. Last follow-up with CONTRACT PROGRAMMER was 05/23/2020. -Continue follow-up with CONTRACT PROGRAMMER at [facility] -Next Pap due in October 2021 [...] October 2018. - Continue follow up with CONTRACT PROGRAMMER as scheduled in 2 weeks Inappropriately high [...] EDT): Following with weight management center in [facility]. Initially had plan for bariatric surgery [...] been overweight since childhood. Patient referred to [facility] weight loss center on 05/16/2020. Patient met with providers via telehealth on 06/19/2020 and states she would like to proceed with bariatric surgery. Surgical options include gastric bypass and sleeve gastrectomy. She met with the center's dietitian, health psychologist, and mold making plastics sheets supervisor. -Patient will continue for 6 months to [...] 98 03/21/2022 8:43 AM EDT Temperature 36.8 C (98.2 F) 03/21/2022 8:43 AM EDT Respiratory Rate 20 01/23/2022 3:24 PM EDT Oxygen Saturation 98% 03/21/2022 8:43 AM EDT Inhaled Oxygen Concentration - - Weight 123.4 kg (272 lb) 05/15/2022 12:59 PM EDT Height 170.2 cm (5' 7 ) 05/15/2022 12:59 PM EDT Body Mass Index 42.6 05/15/2022 12:59 PM EDT Plan of Treatment Health Maintenance Due Date Last Done Comments HIV Screening 1997 Alcohol/Substance Use Screening 09/01/2024 COVID-19 Vaccine ( season) 2025 07/16/2022, 06/30/2021, 12/16/2020, Additional history exists Influenza Vaccine (#1) 2025 4, 07/16/2022, 07/16/2022, Additional history exists DTaP,Tdap,and Td Vaccines (10 - Td or Tdap) 05/16/2030 05/16/2020, 04/30/2019, 04/28/2009, Additional history exists RSV Vaccine (60+ years old and patients) (1 - 1-dose 75+ series) 02/28/2072 Hepatitis B Vaccines Completed 1997, 1997, 1997 Varicella Vaccines Completed 10/29/2009, 10/29/2000 Cervical Cancer Screening Discontinued Pap Smear Discontinued 01/18/2022, 10/02/2018 HPV and Pap Smear Discontinued Pneumococcal Vaccine: Pediatric (0-5 Years) and At-Risk Patients (6-50 Years) Aged Out No longer eligible based on patient's age to complete this topic Procedures * Due to [place] [employer] law, this organization might not be sharing negative HIV tests. Procedure Name Priority Date/Time Associated Diagnosis Comments PAP SMEAR 01/18/2022 from Last 3 Months or Most Recently Relevant to Health Maintenance Results * Due to [place] [employer] law, this organization might not be sharing negative HIV tests. * PAP SMEAR (01/18/2022) 01/18/2022 us Onbase Scan [facility] Final Resu lt from Last 3 Months or Most Recently Relevant to Health Maintenance Insurance [facility] HMO/POS Advance Directives Documents on File Type Date Recorded Patient Facility Supervisor Expl [facility] Care Proxy 01/23/2021 11:46 AM 05-2 Care Teams Wash Oil Pump Operator Relationship Specialty Start Date End Date Jennifer Denny MD [address] [place] [id number] PCP - General Internal Medicine 03/15/21
--- OUTSIDE RECORDS SUMMARY | 2025-05-09 11:54 | XMS_ITS | Encounter Summary ---
Author Organization [facility] Address [address] [place] [address] Care Team Providers Care Roofing Subcontractor Name Role Phone Jennifer Denny MD Primary Care Provider +1- [phone] Encounter Details Date Type Department Care Team (Late st Contact Info) Description 11/23/2020 Laguot Message [facility] Revenue Cycle Management [address] [place] [phone] Mychart, Generic Provider [address] [place] [address] cc letter sent Social History Tobacco Use [...] on filedocumented in this encounter Care Teams Roofing Subcontractor Relationship Specialty Start Date End Date Jennifer Denny MD [address] [place] [address] PCP - General Internal Medicine 03/15/21 documented as of this encounter
== END 2025-05-09 11:15 | disposition home or self-care (01) ==
LOC: HO.HMCFM 10:06
PROVIDERS: PCP Nurse Practitioner Family; Visit Provider Nurse Practitioner Family
DX: Z00.00 Encounter for general adult medical examination without abnormal findings (principal); F32.A Depression, unspecified; L30.9 Dermatitis, unspecified; Z68.37 Body mass index [BMI] 37.0-37.9, adult; E66.9 Obesity, unspecified; Z23 Encounter for immunization

== ENCOUNTER → 2025-05-09 10:05 | Outpatient (BNVA) | payer BC, SELFPAY | PROVIDERS: PCP Nurse Practitioner Family; Visit Provider Nurse Practitioner Family | DX: Z00.00 Encounter for general adult medical examination without abnormal findings (principal); L30.9 Dermatitis, unspecified; F32.A Depression, unspecified; E66.9 Obesity, unspecified; Z23 Encounter for immunization; Z68.37 Body mass index [BMI] 37.0-37.9, adult | CPT/HCPCS: 90471; 90715; 96127 ==

== ENCOUNTER 2025-06-28 10:34 | Outpatient (REF) | payer BC, SELFPAY ==
--- OUTSIDE RECORDS SUMMARY | 2025-06-28 13:17 | XMS_ITS | Encounter Summary ---
Author Organization [facility] Address [address] [place] [address] Care Team Providers Care Car Body Designer Name Role Phone Jennifer Denny MD Primary Care Provider +1- [phone] Encounter Details Date Type Department Care Team (Late st Contact Info) Description 11/23/2020 [email or web address] Message [facility] [employer] Revenue Cycle Management [address] [place] [phone] Mychart, Generic Provider [address] [place] [address] cc letter sent Social History Tobacco Use [...] on filedocumented in this encounter Care Teams Car Body Designer Relationship Specialty Start Date End Date Jennifer Denny MD [address] [place] [address] PCP - General Internal Medicine 03/15/21 documented as of this encounter
--- OUTSIDE RECORDS SUMMARY | 2025-06-28 13:17 | XMS_ITS | Clinical Summary ---
Author Organization [facility] Address [address] [place] [address] Care Team Providers Care Blueprint Maker Name Role Phone Jennifer Denny MD Primary Care Provider +1- [phone] Allergies Active Allergy Reactions Criticality Noted Date [...] will be faxed to her psychiatrist at [facility] as requested by patient. 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 Assessment & Plan (05/16/2020 2:31 PM EDT): Mirena IUD in place 10/29/18. - Follow up with MULTIMEDIA DESIGNER as scheduled in 2 weeks PCOS (polycystic ovarian syndrome) 10/02/2018 Overview (06/22/2020): PCOS, with insulin resistance. On metformin ER 750/BID. Assessment & Plan (07/25/2020 10:44 AM EST): Patient reports history of irregular periods starting at 13 years old, underwent work-up with ultrasound as a teenager and was diagnosed with PCOS. Follows with MULTIMEDIA DESIGNER at [facility]. Has had Mirena IUD placed since October 2018. Last follow-up with MULTIMEDIA DESIGNER was 05/23/2020. -Continue follow-up with MULTIMEDIA DESIGNER at [facility] -Next Pap due in October 2021 [...] October 2018. - Continue follow up with MULTIMEDIA DESIGNER as scheduled in 2 weeks Inappropriately high [...] EDT): Following with weight management center in [facility]. Initially had plan for bariatric surgery but [...] with the center's dietitian, health psychologist, and restoration silversmith. -Patient will continue for 6 months to [...] HIV Screening 1997 Alcohol/Substance Use Screening 09/01/2024 Pap Smear 01/18/2025 01/18/2022, 10/02/2018 COVID-19 Vaccine ( season) 2025 07/16/2022, 06/30/2021, 12/16/2020, Additional history exists Influenza Vaccine (#1) 2025 , 07/16/2022, 07/16/2022, Additional history exists DTaP,Tdap,and Td Vaccines (10 - Td or Tdap) 05/16/2030 05/16/2020, 04/30/2019, 04/28/2009, Additional history exists RSV Vaccine (60+ years old and patients) (1 - 1-dose 75+ series) 02/28/2072 Hepatitis B Vaccines Completed 1997, 1997, 1997 Varicella Vaccines Completed 10/29/2009, 10/29/2000 Pneumococcal Vaccine: Pediatric (0-5 Years) and At-Risk Patients (6-50 Years) Aged Out No longer eligible based on patient's age to complete this topic Procedures * Due to [place] state law, this organization might not be sharing negative HIV tests. Procedure Name Priority Date/Time Associated Diagnosis Comments HM PAP SMEAR 01/18/2022 from Last 3 Months or Most Recently Relevant to Health Maintenance Results * Due to [place] [employer] law, this organization might not be sharing negative HIV tests. * HM PAP SMEAR (01/18/2022) 01/18/2022 us Onbase Scan [facility] MAINTENANCE Final Resu lt from Last 3 Months or Most Recently Relevant to Health Maintenance Insurance [facility] HMO/POS Advance Directives Documents on File Type Date Recorded Patient Internal Medicine Veterinary Technician Expl [facility] Care Proxy 01/23/2021 11:46 AM 05-2 Care Teams Blueprint Maker Relationship Specialty Start Date End Date Jennifer Denny MD [address] [place] [id number] PCP - General Internal Medicine 03/15/21
[2025-06-28 14:16] LABS: Appearance Urine Cloudy; Glucose Urine UA Negative (Negative); PH 5.5 (5.0-9.0); Specific Gravity - Urine 1.025 (1.005-1.025); UMIC TRIGGER UACC YES
[2025-06-28 14:21] LABS: UACC Culture Trigger YES
[2025-06-28 15:27] LABS: Cholesterol 184 mg/dL (<200); HDL Cholesterol 52 mg/dL (>40); Triglycerides 107 mg/dL (<150)
[2025-06-28 15:39] LABS: Ferritin 184 ng/mL (10-122)
== END 2025-06-28 10:35 | disposition home or self-care (01) ==
LOC: HO.WFDLDS 10:34
PROVIDERS: Visit Provider Nurse Practitioner Family
DX: Z00.00 Encounter for general adult medical examination without abnormal findings (principal); R79.89 Other specified abnormal findings of blood chemistry; E78.00 Pure hypercholesterolemia, unspecified
CPT/HCPCS: 36415; 80061; 81001; 81003; 82728; 87086

== ENCOUNTER 2025-07-01 09:44 | Outpatient (AMB) | payer BC, SELFPAY ==
--- NOTE | 2025-07-01 09:42 | MHC.PC.OV ---
Intake Visit Reasons: Reschedule 1 mos hypercholesterolemia Intake Note: patient here for 1 month Telehealth follow up on labs review Patient Advocate Required: No Is last menstrual period known: Yes Last menstrual period: 06/16/25 Post menopausal: No Patient : No Allergies mushrooms Allergy (Intermediate, Uncoded 07/01/25 09:43) Facial Swelling shellfish Allergy (Intermediate, Uncoded 07/01/25 09:43) Itching, hives, rash Tobacco use date assessed: 07/01/25 Dental Screening Dental Screen Date: 07/01/25 Did you have a dental visit in the last 12 months?: Yes Did you have a dental problem in the last 6 months where you did not have access to dental care?: No Was dental information given to patient?: Patient has dentist HPI HPI Comments History of Present Illness Details 30-year-old female presents for a telehealth visit for review of recent lab results. She has been making healthy dietary choices and exercising regularly. No acute symptoms at this time. [facility] Medical History Diabetes Steatosis, liver Knee pain GERD (gastroesophageal reflux disease) Sleep apnea Hypothyroidism Morbid obesity Surgical History S/P laparoscopic sleeve gastrectomy Hx of wisdom tooth extraction Family History Mother Hypertension Substance abuse Father Hypertension Diabetes Brother Asthma Brother No problems noted. Social History (Updated 05/14/24 @ 08:32 by BRENDA Monique) Household Members: Family Housing: House Are you a primary senior resident care director to a significant other at home: No Do you presently have visiting nurse or other home services: No Alcohol intake: current Alcohol intake frequency: holidays/special occasions only Comment: standby assist oob Patient Tobacco Use Status: Never used Tobacco e-Cigarette/Vaping Use: Never Used Second Hand Smoke Exposure: No Patient : No service: No Current occupational status: employed and student Current occupation: [employer] Sexual orientation: Straight/Heterosexual Gender identity: Female Cognitive needs: No Hearing needs: No Vision needs: Yes Female Reproductive History Menstrual Date of last menstrual period: 06/16/25 Questionnaire Thrive Questionnaire Date Thrive assessed: 09/03/24 I am a: Patient What is your living situation today?: I have a steady place to live Within the past 12 months, did the food you bought not last and you didn't have the money to get more?: Never true Within the past 12 months, did you worry whether your food would run out before you got money to buy more?: Never true Do you have trouble paying for medicines?: No Do you have trouble getting transportation to medical appointments?: No Do you have trouble paying your heating and electricity bill?: No Do you have trouble taking care of your child, family member or friend?: No Do you have trouble with day-to-day activities such as bathing, preparing meals, shopping, managing finances, etc.?: No Are you currently unemployed and looking for a job?: No Are you interested in more education?: No Please select the resources that you would like help with: None Currently or been in a relationship where the following occur: No concerns reported THRIVE Score: 0 MAURI-7 AMB Questionnaire MAURI-7 Date MAURI - 7 assessed: 05/09/25 Source: Developed by Drs. Martinez Mckenzie, Tia Choudhury, Gaudencio Sheehan and colleagues, with an educational ulysses from [employer]. Review of Systems Const Details: Denies chills, Denies fatigue, Denies fever(s), Denies headache(s) and Denies weakness Cardiac Denies chest pain, Denies claudication, Denies leg edema, Denies lightheadedness, Denies palpitations, Denies dyspnea, Denies dyspnea on exertion, Denies orthopnea and Denies other (Loss of consciousness) Resp Denies cough, Denies excessive phlegm production, Denies dyspnea, Denies dyspnea on exertion, Denies snoring and Denies wheezing Physical exam (Primary Care) Tobacco/Smoking Status: Tobacco use Status Tobacco use date assessed 07/01/25 07/01/25 09:45 Patient Tobacco Use Status Never used Tobacco 07/01/25 09:45 e-Cigarette/Vaping Use Never Used 07/01/25 09:45 Thrive Assessment: Date of Thrive Assessment Date Thrive assessed 09/03/24 07/01/25 09:45 Currently or been in a relationship where the following occur: No concerns reported Const Other: Patient is alert and oriented x3 Telehealth Telehealth Telehealth Platform: Telephone Location of provider rendering services: practice address Location of patient: address on file Patient Identification confirmed using: Name, : Yes Telehealth method: voice only Patient verbally consented to treatment: Yes Patient verbally consented to billing insurance company: Yes Patient informed of any privacy concerns related to visit: Yes Coding Level of Care Code Tele Est Pt Level 3 (67678) Diagnoses Hypercholesterolemia E78.00 Elevated ferritin R79.89 Time Spent (min) 15 Assessment & Plan Assessment & Plan (1) Hypercholesterolemia: Code(s): E78.00 - Pure hypercholesterolemia, unspecified Category: Medical Plan: Recent LDL level is elevated, 111, previous level was 122, total cholesterol level was normal, 184, triglycerides and HDL levels are normal. Advised to limit foods high in saturated fat and avoid foods high in trans fat. Routine exercise encouraged. Will monitor lipid panel level annually or as needed. Follow-up for JENNIFER with a new provider as planned. Verbalized understanding and agreed with plan. (2) Elevated ferritin: Code(s): R79.89 - Other specified abnormal findings of blood chemistry Category: Medical Plan: Recent ferritin level is elevated, 184, previous level was 188. Her CRP was slightly elevated the last time, and therefore inflammation may be contributory. Referred to hematology/Oncology for further workup. Orders: Referrals Hematology & Oncology Referral R79.89 - Other specified abnormal findings of blood chemistry
--- OUTSIDE RECORDS SUMMARY | 2025-07-01 10:56 | XMS_ITS | Clinical Summary ---
Author Organization [facility] Address [address] [place] [address] Care Team Providers Care Wig Dresser Name Role Phone Jennifer Denny MD Primary Care Provider +1- [phone] Allergies Active Allergy Reactions Criticality Noted Date [...] will be faxed to her psychiatrist at [facility] as requested by patient. Psychological factors affecting [...] EST): Patient referred for pulmonology evaluation by [facility] weight loss center. 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 Assessment & Plan (05/16/2020 2:31 PM EDT): Mirena IUD in place 10/29/18. - Follow up with CORPORATE MANAGER as scheduled in 2 weeks PCOS (polycystic ovarian syndrome) 10/02/2018 Overview (06/22/2020): PCOS, with insulin resistance. On metformin ER 750/BID. Assessment & Plan (07/25/2020 10:44 AM EST): Patient reports history of irregular periods starting at 13 years old, underwent work-up with ultrasound as a teenager and was diagnosed with PCOS. Follows with CORPORATE MANAGER at [facility]. Has had Mirena IUD placed since October 2018. Last follow-up with CORPORATE MANAGER was 05/23/2020. -Continue follow-up with CORPORATE MANAGER at [facility] -Next Pap due in October 2021 Assessment [...] October 2018. - Continue follow up with CORPORATE MANAGER as scheduled in 2 weeks Inappropriately high [...] EDT): Following with weight management center in [facility]. Initially had plan for bariatric surgery [...] been overweight since childhood. Patient referred to [facility] weight loss center on 05/16/2020. Patient met with providers via telehealth on 06/19/2020 and states she would like to proceed with bariatric surgery. Surgical options include gastric bypass and sleeve gastrectomy. She met with the center's dietitian, health psychologist, and blunger machine operator. -Patient will continue for 6 months to [...] complete this topic Procedures * Due to [place] state law, this organization might not be sharing negative HIV tests. Procedure Name Priority Date/Time Associated Diagnosis Comments HM PAP SMEAR 01/18/2022 from Last 3 Months or Most Recently Relevant to Health Maintenance Results * Due to [place] [employer] law, this organization might not be sharing negative HIV tests. * HM PAP SMEAR (01/18/2022) 01/18/2022 us Onbase Scan [facility] MAINTENANCE Final Resu lt from Last 3 Months or Most Recently Relevant to Health Maintenance Insurance [facility] HMO/POS Advance Directives Documents on File Type Date Recorded Patient Facilities Custodian Expl [facility] Care Proxy 01/23/2021 11:46 AM 05-2 Care Teams Wig Dresser Relationship Specialty Start Date End Date Jennifer Denny MD [address] [place] [id number] PCP - General Internal Medicine 03/15/21
--- OUTSIDE RECORDS SUMMARY | 2025-07-01 10:56 | XMS_ITS | Encounter Summary ---
Author Organization [facility] Address [address] [place] [address] Care Team Providers Care Slope Hoist Operator Name Role Phone Jennifer Denny MD Primary Care Provider +1- [phone] Encounter Details Date Type Department Care Team (Late st Contact Info) Description 11/23/2020 [email or web address] Message [facility] Revenue Cycle Management [address] [place] [address] Mychart, Generic Provider [address] [place] [address] cc letter sent Social History Tobacco Use [...] on filedocumented in this encounter Care Teams Slope Hoist Operator Relationship Specialty Start Date End Date Jennifer Denny MD [address] [place] [address] PCP - General Internal Medicine 03/15/21 documented as of this encounter
== END 2025-07-01 10:32 | disposition home or self-care (01) ==
LOC: HO.HMCFM 09:45
PROVIDERS: PCP Nurse Practitioner Family; Visit Provider Nurse Practitioner Family
DX: E78.00 Pure hypercholesterolemia, unspecified (principal); R79.89 Other specified abnormal findings of blood chemistry

== ENCOUNTER → 2025-08-05 14:40 | Outpatient (BNV) | payer BC, SELFPAY | PROVIDERS: PCP Nurse Practitioner Family; Referring Provider Nurse Practitioner Family; Visit Provider Nurse Practitioner Family | DX: R79.89 Other specified abnormal findings of blood chemistry (principal) | CPT/HCPCS: 99204 ==